=== PATIENT | female | born 1980 | race Caucasian/White ===

== ENCOUNTER 2023-10-23 15:41 | Emergency (ER) | payer BC, SELFPAY ==
[2023-10-23 16:04] VITALS: BP 131/77; PULSE 78; RESP 18; TEMP 36.4; O2SAT 99
--- NOTE | 2023-10-23 16:04 | ED.ANIMALBIT ---
HPI - Animal Bite General Chief Complaint: Animal Bite Stated Complaint: cat bite Time Seen by Provider: 10/23/23 16:06 Source: patient Mode of arrival: ambulatory Limitations: no limitations History of Present Illness HPI narrative: 43 y/o female presented for c/o cat bite to right inner knee sustained 2 days ago. The cat is her foster and is UTD on vaccinations, pt is UTD on tetanus. She cleansed the bite wounds with hydrogen peroxide about an hour after it occurred. Has noticed some drainage to the sites. She was prescribed Augmentin yesterday by PCP which she started over 24 hours after the bite; has had 2 doses. Pt reports pain is 8/10 with walking or touching the site. Continues to clean the wounds with hydrogen peroxide frequently. Endorses fever up to 101, sore throat, and malaise yesterday. She attributed most of her symptoms to dehydration after drinking alcohol at the [place] all weekend. Related Data Allergies Allergy/AdvReac Type Severity Reaction Status Date / Time Iodinated Contrast Media Allergy Severe Anaphylactic Verified 10/23/23 15:51 Shock bismuth subsalicylate AdvReac Mild Rash Verified 10/23/23 15:51 [From Pepto-Bismol] tioconazole AdvReac Mild Rash Verified 10/23/23 15:51 [From Monistat 1 (tioconazole)] Review of Systems Review of Systems: CONSTITUTIONAL: reports fever EYES: Denies visual changes, redness, or discharge. ENT: Denies rhinorrhea, congestion CARDIOVASCULAR: Denies chest pain, palpitations, or edema. RESPIRATORY: Denies cough or dyspnea. GASTROINTESTINAL: Denies abdominal pain, nausea, vomiting, or diarrhea. SKIN: reports cat bite right knee MUSCULOSKELETAL: Denies back pain, joint pain, or myalgia. NEUROLOGIC: Denies headache, numbness, tingling, or weakness. [facility] Past Medical History Medical History Allergic rhinitis GERD (gastroesophageal reflux disease) IBS (irritable bowel syndrome) Surgical History Surgical History History of cholecystectomy History of tonsillectomy Social History Social History Smoking status: Never smoker Alcohol intake: current Alcohol use details: rarely Substance use: never Substance use type: does not use Lack of Transportation: No Lack of Food: Never True Current Housing: I Have Housing Concerned About Future Housing: No Difficulty Paying Gas/Electric Bills: No Difficulty Paying for Meds: No Currently Unemployed: No Education: High School Diploma/GED Difficulty w/ Childcare or Family Care: No Living arrangements: with family Occupation/Education: occupation Gender identity (if verbalized by the patient): Female Sexual Orientation (if Verbalized by the Patient): Straight or Heterosexual Comments At time of signature, I have reviewed and agree with nursing past medical, surgical, social and family history unless otherwise noted. Please see nursing chart for further information. There is no relevant family history pertinent to the presenting complaint Exam Narrative: GENERAL: Well-appearing EYES: conjunctivae clear, and EOMI. ENT: Mucous membranes moist. Oropharynx without edema, erythema or lesions. CHEST: Clear to auscultation. HEART: Regular rate and rhythm. SKIN: Warm, dry. Right medial knee with 2 puncture sites and surrounding erythema of 1cm, minimally tender, no drainage, no streaking; another 2 puncture sites to medial knee with surrounding induration of 4cm, warm and tender, scant serous drainage; party supply specialist erythema surrounding these of 8cm with minimal tenderness, no streaking. Superficial scabbed abrasions scattered to right lower leg without surrounding induration. NEURO: Alert and oriented x3. Course Course Emergency Course: Patient is aware of diagnosis, understands and agrees to treatment plan.
== END 2023-10-23 16:46 | disposition short-term general hospital (02) ==
PROVIDERS: Emergency Provider Nurse Practitioner Family; PCP Physician Assistant Medical
DX: S81.031A Puncture wound without foreign body, right knee, initial encounter (principal); W55.01XA Bitten by cat, initial encounter; K21.9 Gastro-esophageal reflux disease without esophagitis
CPT/HCPCS: 99212; G0463

== ENCOUNTER 2023-10-23 17:23 | Observation (INO) | payer BC, SELFPAY ==
--- NOTE | ~2023-10-23 | XR_ITS ---
XR abdomen/kub 1V Ordering provider: Jelly Farias History: . chest pain, epigastric pain . Comparison: None. FINDINGS: BOWEL: Fecal material in the right side of the colon which may indicate constipation. Nonobstructive bowel gas pattern. ORGANOMEGALY: None. Status post cholecystectomy. SIGNIFICANT PATHOLOGIC CALCIFICATIONS: None. OTHER: No free air is seen under the diaphragm. Attempt of lumbarization of S1. IMPRESSION: NO ACUTE ABDOMINAL FINDINGS. Reviewed, dictated and finalized at location A.
--- NOTE | ~2023-10-23 | XR_ITS ---
EXAM: XR knee RT 3V DATE: 10/23/2023 20:13 HISTORY: pain s/p cat bite . COMPARISON: 07/31/2023. FINDINGS: Normal mineralization. No fracture or dislocation. No lytic or blastic lesion. Mild tricom partmental osteoarthritis. Potential loose bodies over the posterior joint space. No erosion or perio steal change. 2.7 x 5.7 cm ovoid soft tissue density likely overlying the vastus medialis muscle. No radiopaque foreign body or subcutaneous gas. IMPRESSION: No acute osseous finding in the right knee. 2.7 x 5.7 soft tissue density overlying the v astus medialis muscle, correlate for palpable mass and signs of infection. Reviewed, dictated and finalized at location K. IMPRESSION: No acute osseous finding in the right knee. 2.7 x 5.7 soft tissue d ensity overlying the vastus medialis muscle, correlate for palpable mass and si gns of infection.
--- NOTE | ~2023-10-23 | XR_ITS ---
Portable chest x-ray Comparison: None Clinical History: Chest pain Findings: Lungs are clear, without focal consolidation or pleural effusion. Cardiomediastinal silho uette is unremarkable. Bones and soft tissues are unremarkable. Impression: Normal chest. Reviewed, dictated and finalized at location . Impression: Normal chest.
[2023-10-23 17:56] VITALS: BP 128/78; PULSE 98; RESP 16; TEMP 36.5; O2SAT 100
--- NOTE | 2023-10-23 19:11 | PC.NURSE ---
Report given to DENAE Upton
[2023-10-23 20:58] LABS: Basophils Percent Auto 0.4 % (0.2-1.2); Eosinophils Absolute Auto 0.1 K/mm3 (0-0.3); Eosinophils Percent Auto 0.8 % (0-4.4); Hematocrit 41.8 % (37.0-47.0); Hemoglobin 14.7 g/dL (12.0-15.0); Immature Granulocyte Absolute 0.02 K/mm3 (0.00-0.031); Immature Granulocyte Percent A 0.3 % (0-0.5); Lymphocytes Absolute Auto 2.13 K/mm3 (0.9-3.2); Lymphocytes Percent Auto 28.6 % (18.3-44.2); Mean Corpuscular HGB Conc 35.2 g/dl (32-36); Mean Corpuscular Hemoglobin 29.5 pg (26-34); Mean Corpuscular Volume 83.8 fl (80-100); Mean Platelet Volume 9.6 fl (7.4-10.4); Monocytes Absolute Auto 0.7 K/mm3 (0.1-0.6); Monocytes Percent Auto 9.1 % (2.6-8.5); Neutrophils Absolute Auto 4.5 K/mm3 (1.3-6.7); Neutrophils Percent Auto 60.8 % (45.5-73.1); Platelet Count Result 249 k/mm3 (150-375); Red Blood Count 4.99 M/mm3 (4.2-5.4); Red Cell Distribution Width 12.8 % (11.5-14.5); White Blood Count 7.5 K/mm3 (4.5-10.0)
[2023-10-23 21:03] LABS: Appearance Urine Cloudy (Clear); Bacteria Urine 1+ /hpf; Bilirubin Urine Negative (Negative); Blood Urine Negative (Negative); Color Urine Yellow (Yellow); Glucose Urine UA Negative (Negative); Ketones Urine Negative (Negative); Leukocyte Esterase Ur Negative LEU/UL (Negative); Nitrate Urine Negative (Negative); Non Pathogenic Casts 0-2; Protein Urine Negative (Negative); Specific Grav Ur 1.025 (1.001-1.035); Squamous Epithelial Cell Urine Moderate /hpf (Few); WBC Urine 0-5 /hpf (0-3); pH Urine 5.5 (5.0-9.0)
[2023-10-23 21:04] LABS: Add Urine Microscopic? YES
[2023-10-23] MEDS: SODIUM CHLORIDE 0.9% IV 1,000 ML 999 ML IV CONT (21:04)
[2023-10-23 21:08] LABS: Lactic Acid Reflex 1.7 mmol/L (0.7-2.0)
--- NOTE | 2023-10-23 21:08 | ED.GENADULT ---
HPI - General Adult General Chief complaint: Animal Bite Stated complaint: cat bite-sent by Time Seen by Provider: 10/23/23 19:26 History of Present Illness HPI narrative: Patient is a 43-year-old female presents emergency department chief complaint of cat bite right lower extremity. The patient reports that 2 days ago she had a cat bite to the right lower extremity above the knee patient reports the area became red appears to be 2 bites of the patient states that she was started on Augmentin and reports that the area has become more red more swollen the patient states she has had some yellowish drainage from the wound patient denies fever chills reports that she went to urgent care and was recommended to come the emergency department for further treatment. Related Data Allergies Allergy/AdvReac Type Severity Reaction Status Date / Time Iodinated Contrast Media Allergy Severe Anaphylactic Verified 10/23/23 18:46 Shock bismuth subsalicylate AdvReac Mild Rash Verified 10/23/23 18:46 [From Pepto-Bismol] tioconazole AdvReac Mild Rash Verified 10/23/23 18:46 [From Monistat 1 (tioconazole)] Review of Systems Review of Systems: A 10 system review of systems was completed on the patient and is negative except for what is stated in the HPI. Nursing and ancillary documentation was reviewed. [facility] Past Medical History Medical History Allergic rhinitis GERD (gastroesophageal reflux disease) IBS (irritable bowel syndrome) Surgical History Surgical History History of cholecystectomy History of tonsillectomy Social History Social History Smoking status: Never smoker Alcohol intake: current Alcohol use details: rarely Substance use: never Substance use type: does not use Lack of Transportation: No Lack of Food: Never True Current Housing: I Have Housing Concerned About Future Housing: No Difficulty Paying Gas/Electric Bills: No Difficulty Paying for Meds: No Currently Unemployed: No Education: High School Diploma/GED Difficulty w/ Childcare or Family Care: No Living arrangements: with family Occupation/Education: occupation Gender identity (if verbalized by the patient): Female Sexual Orientation (if Verbalized by the Patient): Straight or Heterosexual Exam Narrative: GENERAL: Well-appearing, well-nourished, and in no acute distress. HEAD: Normocephalic, atraumatic. EYES: PERRLA and EOMI. ENT: Nares clear, no rhinorrhea or epistaxis. Mucous membranes moist. NECK: Supple. CHEST: Clear to auscultation. No respiratory distress. HEART: Regular rate and rhythm. No murmur heard. Normal peripheral pulses. ABDOMEN: Soft, nontender, nondistended, normal active bowel sounds. EXTREMITIES: Normal range of motion. No edema. SKIN: Warm, dry, no rash. There is an area of erythema to the right lower extremity above the knee there is no crepitance there is no fluctuance NEURO: No focal deficits. Alert and oriented x3. PSYCH: Normal mood and affect. Course Vital Signs Vital signs: Vital Signs Temperature 36.5 C 10/23/23 17:56 Pulse Rate 98 10/23/23 17:56 Respiratory Rate 16 10/23/23 17:56 Blood Pressure 128/78 10/23/23 17:56 Pulse Oximetry 100 10/23/23 17:56 Oxygen Delivery Room Air 10/23/23 17:56 Temperature 36.5 C 10/23/23 17:56 Pulse Rate 98 10/23/23 17:56 Respiratory Rate 16 10/23/23 17:56 Blood Pressure 128/78 10/23/23 17:56 Pulse Oximetry 100 10/23/23 17:56 Oxygen Delivery Room Air 10/23/23 17:56 Medical Decision Making [facility] Narrative Medical decision making narrative: Differential diagnosis includes foreign body, cellulitis, abscess Patient has been treated with Augmentin as an outpatient and has not had significant impr
[2023-10-23 21:09] LABS: Alanine Aminotransferase 23 U/L (6-35); Albumin Level 4.8 g/dL (3.5-5.1); Alkaline Phosphatase 74 U/L (38-126); Anion Gap 10 mmol/L (4-12); Aspartate Amino Transferase 27 U/L (14-36); Bilirubin,Total 0.5 mg/dL (0.2-1.3); Blood Urea Nitrogen 15 mg/dL (7-17); Calcium 9.3 mg/dL (8.4-10.2); Carbon Dioxide 24 mmol/L (22-30); Chloride 104 mmol/L (98-107); Estimated CRCL calculation 104 ml/min; Estimated Glomerular Filt Rate > 60; Glucose 82 mg/dL (65-110); Potassium 3.9 mmol/L (3.4-5.0); Sodium 138 mmol/L (137-145)
--- NOTE | 2023-10-23 21:30 | PM.IMHP ---
H&P: HPI History of Present Illness Date/Time: 10/23/23 21:30 Chief Complaint: cat bite Narrative: This is a 43 yo female with PMHx Significant for obesity, chronic pain, anxiety, depression, irritable bowel syndrome. Patient presented to the emergency room due to cat bite this is a CT that she has fostered. Was at Urgent Care was given antibiotics and sent home however the site has progressively gotten worse with tenderness swelling redness and warmth, chills. Patient has been placed in observation for IV antibiotic infusion. EXAM: XR knee RT 3V DATE: 10/23/2023 20:13 HISTORY: pain s/p cat bite . COMPARISON: 07/31/2023. FINDINGS: Normal mineralization. No fracture or dislocation. No lytic or blastic lesion. Mild tricompartmental osteoarthritis. Potential loose bodies over the posterior joint space. No erosion or periosteal change. 2.7 x 5.7 cm ovoid soft tissue density likely overlying the vastus medialis muscle. No radiopaque foreign body or subcutaneous gas. IMPRESSION: No acute osseous finding in the right knee. 2.7 x 5.7 soft tissue density overlying the vastus medialis muscle, correlate for palpable mass and signs of infection. [facility] Past Medical History Medical History Allergic rhinitis GERD (gastroesophageal reflux disease) IBS (irritable bowel syndrome) Surgical History Surgical History History of cholecystectomy History of tonsillectomy Social History Social History Smoking status: Never smoker Second hand tobacco smoke exposure: No Alcohol intake: current Drinks per week: 3 Alcohol use details: rarely Substance use: never Substance use type: does not use Do You Feel Safe in your Home?: Yes Lack of Transportation: No Lack of Food: Never True Current Housing: I Have Housing Concerned About Future Housing: No Difficulty Paying Gas/Electric Bills: No Difficulty Paying for Meds: No Currently Unemployed: No Education: Bachelor's Degree Difficulty w/ Childcare or Family Care: No Living arrangements: with family Occupation/Education: occupation Gender identity (if verbalized by the patient): Female Sexual Orientation (if Verbalized by the Patient): Straight or Heterosexual Spiritual care concerns: No Meds Home Medications and Allergies Home Medications Medication Instructions Recorded Confirmed Type alprazolam 0.25 mg tablet See Rx Instructions PO QHS PRN 07/21/22 10/23/23 Rx anxiety #60 tabs phentermine 37.5 mg capsule 37.5 mg PO DAILY #30 caps 10/10/23 10/23/23 Rx sertraline 100 mg tablet 200 mg PO DAILY #180 tabs 10/10/23 10/23/23 Rx topiramate 25 mg tablet (Topamax) 25 mg PO DAILY #30 tabs 10/10/23 10/23/23 Rx hydrocodone 5 mg-acetaminophen 325 5 - 325 tablet PO TID PRN Pain, 10/23/23 10/23/23 History mg tablet Moderate omeprazole 20 mg capsule,delayed 20 mg PO PRN PRN Acid Reflux 10/23/23 10/23/23 History release Allergies Allergy/AdvReac Type Severity Reaction Status Date / Time Iodinated Contrast Media Allergy Severe Anaphylactic Verified 10/23/23 18:46 Shock bismuth subsalicylate AdvReac Mild Rash Verified 10/23/23 18:46 [From Pepto-Bismol] tioconazole AdvReac Mild Rash Verified 10/23/23 18:46 [From Monistat 1 (tioconazole)] Vital Signs Vital Signs - 24 hr 10/23/23 17:56 Temperature 97.7 F Pulse Rate 98 Respiratory Rate 16 Blood Pressure 128/78 Pulse Oximetry 100 Oxygen Delivery Room Air Exam Narrative: sitting in stretcher Const: General: comfortable, no acute distress, well developed, alert, awake and average body habitus Nutritional Appearance: obese morbidly obese Orientation/consciousness: patient oriented x3 HENMT: Head: normal to inspection, normocephalic and atraumatic Ears: hearing grossly
[2023-10-23] MEDS: AMPICILLIN SULB 3 GM/NS 100 ML 3 GM/100 ML VIAL IVPB (21:34)
[2023-10-23 23:35] VITALS: BP 146/75; PULSE 99; RESP 18; TEMP 36.8; O2SAT 100
[2023-10-23 23:58] VITALS: BMI 47.6
--- NOTE | 2023-10-24 00:06 | ADMGEN ---
This patient, Kirstin London, was admitted to [facility] Surg Room 332-02. Patient/family oriented to hospital policies and general routines including ID bracelet, bed and alarms, visiting hours, pain management, procedures, bathroom and other care routines, personal items, smoking policy, room service/diet, and visiting hours. Information on how to activate the Rapid Response Team has been discussed. Patient/Family are encouraged to report perceived risks to care and to ask questions if they do not understand what they are told or what they should do.
[2023-10-24] MEDS: MORPHINE SULFATE (*CRX) 2 MG/ML INJ IV PUSH ×2 (00:42→12:25)
[2023-10-24] MEDS: AMPICILLIN SULB 3 GM/NS 100 ML 3 GM/100 ML VIAL IVPB ×3 (05:36→17:21)
[2023-10-24 06:00] VITALS: BP 112/60; PULSE 66; RESP 18; TEMP 36.7; O2SAT 98
[2023-10-24] MEDS: TOPIRAMATE 25 MG TABLET PO (07:35)
[2023-10-24] MEDS: SERTRALINE HCL 50 MG TABLET 200 MG PO (07:35)
[2023-10-24] MEDS: HYDROcodone/acetaminophen (*CRX) 5-325 MG TABLET 1 TAB PO ×2 (07:36→19:46)
[2023-10-24 08:00] VITALS: O2SAT 98
[2023-10-24] MEDS: PANTOPRAZOLE 40 MG TABLET PO (08:40)
[2023-10-24 10:16] VITALS: O2SAT 98
[2023-10-24 14:00] VITALS: BP 122/74; PULSE 75; RESP 16; TEMP 36.6; O2SAT 100
--- NOTE | 2023-10-24 17:18 | PM.IMPN ---
Progress Note: A&P Assessment and Plan (1) Cat bite: Code(s): W55.01XA - Bitten by cat, initial encounter Status: Acute (2) Cellulitis of leg, right: Code(s): L03.115 - Cellulitis of right lower limb Status: Acute Plan Discontinue morphine to avoid polypharmacy. Continue IV antibiotics, required. Heparin subQ 5000 units b.i.d.. Full code. Subjective Date/time seen: 10/24/23 17:18 Interval history: No acute overnight events. Patient denies fever chills. Review of Systems Review of Systems: All systems reviewed & are unremarkable except as noted in HPI and below (Subjective) Exam Const: General: comfortable and no acute distress Eyes: Pupils: Equal, round and reactive pupils present Neck: Neck: supple Resp: Effort & Inspection: normal respiratory effort Auscultation: clear to auscultation bilaterally Cardio: Rate: regular rate Rhythm: regular rhythm Extrem: Other: Right lower extremity edema improved. Erythema improved. No Pus drainage Objective Data Vital Signs Vital Signs: Vital Signs - 24 hr 10/23/23 17:56 10/23/23 23:35 10/24/23 06:00 Temperature 97.7 F 98.2 F 98.1 F Pulse Rate 98 99 66 Respiratory Rate 16 18 18 Blood Pressure 128/78 146/75 H 112/60 Pulse Oximetry 100 100 98 Oxygen Delivery Room Air 10/24/23 08:00 10/24/23 10:16 10/24/23 14:00 Temperature 97.8 F Pulse Rate 75 Respiratory Rate 16 Blood Pressure 122/74 Pulse Oximetry 98 98 100 Oxygen Delivery Room Air Room Air Intake/Output Intake/Output: Intake & Output 10/21/23 10/22/23 10/23/23 10/24/23 23:59 23:59 23:59 23:59 Intake Total 1100 1010 Output Total 400 Balance 1100 610 Meds/Results Medications: Active Medications Generic Name Dose Route Start Last Admin Trade Name Freq PRN Reason Stop Dose Admin Acetaminophen 650 mg 10/23/23 21:43 Acetaminophen 325 Mg Tablet PO Q4H PRN Mild Pain (1-3) or Fever Hydrocodone Bitart/Acetaminophen 1 tab 10/24/23 01:30 10/24/23 07:36 Hydrocodone/Acetaminophen (*Crx) 5-325 Mg Tablet PO 1 tab TID PRN Administration Pain, Moderate 4-6 Alprazolam 1 - 2 mg 10/24/23 01:30 Alprazolam (*Crx) 0.25 Mg Tablet PO QHS PRN anxiety Ampicillin Sodium/Sulbactam Sodium 3 gm in 100 mls @ 200 mls/hr 10/24/23 06:00 10/24/23 12:22 Unasyn 3 Gm/Ns 100 Ml IVPB Infused Q6H CAROLE Infusion Miscellaneous Information 0 each 10/24/23 00:01 Phentermine Nonformulary Can Pt Bring From Home Or Hold While Here? XX 11/23/23 00:00 CLARIFY CAROLE Morphine Sulfate 2 mg 10/23/23 21:43 10/24/23 12:25 Morphine Sulfate (*Crx) 2 Mg/Ml Inj IV PUSH 2 mg Q2H PRN Administration Pain Rated 7-10 Non-Formulary Medication 37.5 mg 10/24/23 09:00 Phentermine PO 11/23/23 08:59 DAILY CAROLE Pantoprazole Sodium 40 mg 10/24/23 01:30 10/24/23 08:40 Pantoprazole 40 Mg Tablet PO 40 mg PRN PRN Administration Acid Reflux Sertraline HCl 200 mg 10/24/23 09:00 10/24/23 07:35 Sertraline Hcl 50 Mg Tablet PO 200 mg DAILY CAROLE Administration Topiramate 25 mg 10/24/23 09:00 10/24/23 07:35 Topiramate 25 Mg Tablet PO 25 mg DAILY CAROLE Administration Radiology Results: ITS Impressions Knee X-Ray 10/23/23 20:26 IMPRESSION: No acute osseous finding in the right knee. 2.7 x 5.7 soft tissue density overlying the vastus medialis muscle, correlate for palpable mass and signs of infection. Labs Labs: Laboratory Results - last 24 hr 10/23/23 10/23/23 10/23/23 20:28 20:47 20:48 WBC 7.5 RBC 4.99 Hgb 14.7 Hct 41.8 MCV 83.8 MCH 29.5 MCHC 35.2 RDW 12.8 Plt Count 249 MPV 9.6 Immature Gran % (Auto) 0.3 Neut % (Auto) 60.8 Lymph % (Auto) 28.6 [place] % (Auto) 9.1 H Eos % (Auto) 0.8 Baso % (Auto) 0.4 Lymph # (Auto) 2.13 [place] # (Auto) 0.7 H Eos # (Auto) 0.1 Baso # (Auto) 0.0 Abs I
[2023-10-24] MEDS: HEPARIN SODIUM 5,000 UNITS/ML VIAL 5000 UNITS SUB-Q (19:50)
[2023-10-24 22:00] VITALS: BP 110/78; PULSE 84; RESP 16; TEMP 36.6; O2SAT 98
[2023-10-25] MEDS: ALPRAZolam (*CRX) 0.25 MG TABLET PO (00:04)
[2023-10-25] MEDS: ACETAMINOPHEN 325 MG TABLET 650 MG PO ×3 (00:05→15:15)
[2023-10-25] MEDS: HYDROcodone/acetaminophen (*CRX) 5-325 MG TABLET 1 TAB PO ×2 (05:37→11:08)
[2023-10-25] MEDS: AMPICILLIN SULB 3 GM/NS 100 ML 3 GM/100 ML VIAL IVPB ×3 (05:38→11:10)
[2023-10-25 05:50] VITALS: BP 110/74; PULSE 69; RESP 16; TEMP 36.6; O2SAT 100
[2023-10-25] MEDS: HEPARIN SODIUM 5,000 UNITS/ML VIAL 5000 UNITS SUB-Q (09:32)
[2023-10-25] MEDS: TOPIRAMATE 25 MG TABLET PO (09:33)
[2023-10-25] MEDS: SERTRALINE HCL 50 MG TABLET 200 MG PO (09:33)
[2023-10-25 10:41] VITALS: BP 126/96; PULSE 79; RESP 12; O2SAT 100
[2023-10-25] MEDS: PANTOPRAZOLE 40 MG TABLET PO (11:07)
--- NOTE | 2023-10-25 11:09 | ECG_ITS ---
Test Date: 2023-10-25 11:16:22 Measurements Intervals [place] Rate: 72 P: 31 AL: 151 QRS: 21 QRSD: 93 T: 4 QT: 383 QTc: 419 Interpretive Statements SINUS RHYTHM LOW QRS VOLTAGE IN PRECORDIAL LEADS INCOMPLETE RIGHT BUNDLE BRANCH BLOCK DELAYED PRECORDIAL R/S TRANSITION BORDERLINE ST-T WAVE ABNORMALITY- ANTEROLAT/INF LEADS BORDERLINE ECG No previous ECG available for comparison Electronically Signed On 10-25-2023 16:37:24 CDT by Cassius Simon D.O.
[2023-10-25] MEDS: MAG HYDROX/AL HYDROX/SIMETH 30 ML UDC PO (12:19)
--- NOTE | 2023-10-25 13:05 | PC.NURSE ---
Wet End Supervisor called to patients room with complaints of burning in epigastric region and pain across chest. Patient states it hurts when I swallow and I feel like if I threw up I'd feel better. Wet End Supervisor contacted provider and a stat EKG was ordered and protonix and a [place] 5 was administered . Provider saw patient at bedside and ordered a one time dose of mylanta, troponins ( which patient refused) and a chest x-ray. At this time patient states she is feeling better and pain is subsiding
[2023-10-25 14:00] VITALS: BP 107/78; PULSE 72; RESP 18; TEMP 36.6; O2SAT 98
--- NOTE | 2023-10-25 15:39 | PC.NURSE ---
On re-assessment patient states all symptoms of epigastric pain has resolved. Chest x-ray was negative for PE and patient refused blood draw for troponins.
--- NOTE | 2023-11-06 14:55 | P.DS_ITS ---
DS: Admitting Diagnosis Discharge Date 10/25/23 Admitting Diagnosis Cat bite DS: Discharge Diagnosis Discharge Diagnosis (1) Cat bite: Code(s): W55.01XA - Bitten by cat, initial encounter Status: Acute (2) Cellulitis of leg, right: Code(s): L03.115 - Cellulitis of right lower limb Status: Acute DS: Summary Hospital Course Hospital Course: 43-year-old female presents with erythema pain and edema right lower extremity inner thigh after being bit by a cat she was fostering. She received IV Unasyn. Her symptoms improved. He was discharged on p.o. antibiotics. Advised follow- up with PCP. Adverse effects, risk and benefits of medications discussed. She was educated about the warning signs of worsening infection and to return if so. Patient's questions and concerns were answered to satisfaction. Stable for discharge home on October 25, 2023 Time Spent with Patient Time attestation: Total time spent providing and/or coordinating discharge services: Exam Const: General: comfortable and no acute distress Resp: Effort & Inspection: normal respiratory effort Auscultation: clear to auscultation bilaterally Cardio: Rate: regular rate Rhythm: regular rhythm GI: GI Palp: Yes Soft to palpation and No Tenderness to palpation present (GI) Extrem: General: no edema Discharge Plan Discharge Attending physician on discharge: Jelly Farias Consulting providers: Mendel Arellano; Cassius Simon; Bruno Pressley; Benoit Aguirre Discharging Clinician: Jelly Farias Patient Disposition: Home, Self-Care Activity: august shower Diet: as tolerated Patient Instructions: Antibiotic Form Stand Alone Forms: General Discharge Information Follow-up/Referrals: Lorelei Davis PA-C [Primary Care Provider] - Call for Appointment Discharge Medications: Continued alprazolam 0.25 mg tablet See Rx Instructions PO QHS PRN (Reason: anxiety) Qty: 60 1RF Rx Instructions: 1-2 tabs orally every day at bedtime PRN; hydrocodone-acetaminophen 5-325 mg tablet 5 - 325 tablet PO TID PRN (Reason: Pain, Moderate) phentermine 37.5 mg capsule 37.5 mg PO DAILY Qty: 30 0RF Rx Instructions: must administer 30 minutes before or 1-2 hours after breakfast sertraline 100 mg tablet 200 mg PO DAILY Qty: 180 1RF topiramate [Topamax] 25 mg tablet 25 mg PO DAILY Qty: 30 1RF Held omeprazole 20 mg capsule,delayed release(DR/EC) 20 mg PO PRN PRN (Reason: Acid Reflux) Hold Instructions: restart after antibiotics are done No Action cefuroxime axetil 500 mg tablet 500 mg PO Q12H 7 Days Qty: 14 0RF fluconazole 150 mg tablet 150 mg PO DAILY Qty: 1 0RF metronidazole 500 mg tablet 500 mg PO Q8H 7 Days Qty: 21 0RF Date of admission: 10/23/23 21:43 Primary Care Provider: Lorelei Davis Admitting Provider: Day Caceres V. Attending physician on admission: Jelly Farias Condition: Stable Hospitalist MIPS Heart Failure (Exclusion) Patient has history of Heart Transplant or Left Ventricular Assistive Device?: No IF YES, STOP HERE Heart Failure (Qualifier) Patient has current or prior documentation of LVEF less than or equal to 40%, or mod/servere depressed LVSF?: No IF NO, STOP HERE
== END 2023-10-25 16:12 | disposition home or self-care (01) ==
LOC: ANHED 21:46 → ANH3MEDSUR 10-25 11:19
PROVIDERS: Admitting Provider Internal Medicine; Emergency Provider Emergency Medicine; PCP Physician Assistant Medical; Visit Provider General Practice
DX: L03.115 Cellulitis of right lower limb (principal); S81.851A Open bite, right lower leg, initial encounter; W55.01XA Bitten by cat, initial encounter; F41.9 Anxiety disorder, unspecified; F32.A Depression, unspecified; E66.01 Morbid (severe) obesity due to excess calories; Z68.42 Body mass index [BMI] 45.0-49.9, adult
CPT/HCPCS: 36415; 71045; 73562; 74018; 80053; 81001; 83605; 85025; 87040; 93005; 96365; 96366; 96372; 96375; 96376; 99285; A9270; G0378; J0295; J1644; J2270; J7030

== ENCOUNTER 2024-03-09 08:08 | Emergency (ER) | payer BC, SELFPAY ==
[2024-03-09 08:41] VITALS: BP 114/75; PULSE 86; RESP 18; TEMP 36.7; O2SAT 97
--- NOTE | 2024-03-09 08:58 | ED_ITS ---
HPI - URI/Sore Throat General Chief Complaint: Upper Respiratory Infection Stated Complaint: throat pain History of Present Illness HPI Narrative: 44-year-old female presented for complaint of left-sided sore throat and left ear pain. Onset yesterday. Patient completed a Z-Narayan yesterday as prescribed by PCP from a telehealth visit for cough/fever. Denies sob, wheezing, n/v/f. Reports diarrhea yesterday.Taking ibuprofen and antihistamines. Related Data Home Medications Medication Instructions Recorded Confirmed omeprazole 20 mg capsule,delayed 20 mg PO PRN PRN Acid Reflux 10/23/23 03/09/24 release cyanocobalamin (vitamin B-12) 1,000 mcg PO DAILY 01/10/24 03/09/24 1,000 mcg tablet levonorgestrel 21 mcg/24 hr (up to 1 device intrauterine ONCE 01/29/24 03/09/24 8 years) 52 mg intrauterine device (Mirena) bupropion HCl 150 mg 24 hr tablet, 150 mg PO QAM 03/09/24 03/09/24 extended release (Wellbutrin XL) sertraline 100 mg tablet 200 mg PO DAILY 03/09/24 03/09/24 Allergies Allergy/AdvReac Type Severity Reaction Status Date / Time Iodinated Contrast Media Allergy Severe Anaphylaxis Verified 03/09/24 08:30 bismuth subsalicylate AdvReac Mild Rash Verified 03/09/24 08:30 [From Pepto-Bismol] tioconazole AdvReac Mild Rash Verified 03/09/24 08:30 [From Monistat 1 (tioconazole)] Review of Systems Review of Systems: CONSTITUTIONAL: Denies body aches, fever, chills, or sweats. EYES: Denies visual changes, redness, or discharge. ENT: reports rhinorrhea, sore throat, otalgia. CARDIOVASCULAR: Denies chest pain, palpitations, or edema. RESPIRATORY: Denies dyspnea. GASTROINTESTINAL: Denies abdominal pain, nausea, vomiting, reports diarrhea. SKIN: Denies rash MUSCULOSKELETAL: Denies back pain, joint pain, or myalgia. NEUROLOGIC: Denies headache PMFSH Past Medical History Medical History Allergic rhinitis GERD (gastroesophageal reflux disease) IBS (irritable bowel syndrome) PCOS (polycystic ovarian syndrome) Surgical History Surgical History History of cholecystectomy History of tonsillectomy Family History Family History Father Hypertension Depression Heart disease Mother Asthma Depression Grandparent Heart disease Cerebrovascular accident Social History Social History Social History: 01/21/24 very confident with medical forms 01/29/24 patient declined SDOH Smoking status: Never smoker Second hand tobacco smoke exposure: No Alcohol intake: current Drinks per week: 3 Alcohol use details: rarely Substance use: never Substance use type: does not use Do You Feel Safe in your Home?: Yes Lack of Transportation: No Lack of Food: Never True Current Housing: I Have Housing Concerned About Future Housing: No Difficulty Paying Gas/Electric Bills: No Difficulty Paying for Meds: No Currently Unemployed: No Education: Master's Degree or Higher Difficulty w/ Childcare or Family Care: No Living arrangements: with family Occupation/Education: occupation Gender identity (if verbalized by the patient): Female Sexual Orientation (if Verbalized by the Patient): Straight or Heterosexual Spiritual care concerns: No Exam Narrative: GENERAL: mildly Ill-appearing, no acute distress. EYES: conjunctivae clear ENT: Mucous membranes moist. TMs pearly rene with normal light reflex bilaterally, Left with effusion; no tragal tenderness. Oropharynx erythematous without lesions. Tonsils absent. No drooling, no hoarseness, no trismus, uvula m idline. No tripod positioning, hot potato voice, or soft palate swelling. NECK: Supple. No lymphadenopathy CHEST: Clear to auscultation, breath sounds equal. No respiratory distress, speaks in full sentences. HEART: Regular rate and rhythm. No murmur heard. SKIN: Warm, dry, no rash. NEURO: Alert and oriented x3. Course Course Emergency Course: Patient is aware of diagnosis, understands and agrees to treatment plan. Anticipatory guidance given. Patient agrees to follow-up as directed and is aware of reasons to seek care at the emergency department. Portions of this record may have been created with voice recognition software Level of Care: Express Care Visit Vital Signs Vital signs: Vital Signs Temperature 98.0 F 03/09/24 08:41 Pulse Rate 86 03/09/24 08:41 Respiratory Rate 18 03/09/24 08:41 Blood Pressure 114/75 03/09/24 08:41 Pulse Oximetry 97 03/09/24 08:41 Oxygen Delivery Room Air 03/09/24 08:41 Temperature 98.0 F 03/09/24 08:41 Pulse Rate 86 03/09/24 08:41 Respiratory Rate 18 03/09/24 08:41 Blood Pressure 114/75 03/09/24 08:41 Pulse Oximetry 97 03/09/24 08:41 Oxygen Delivery Room Air 03/09/24 08:41 MDM - URI/Sore Throat MDM Narrative Medical decision making narrative: neg strep result reviewed with pt. Advise supportive treatments. If no improvement she will start abx. Patient is appropriate for outpatient treatment and follow-up. Differential Diagnosis Differential diagnosis: Likely upper respiratory infection, viral infection and pharyngitis Discharge Plan Discharge Clinical Impression: Upper respiratory infection Patient Disposition: Home, Self-Care Condition: Stable Instructions: Antibiotic Form, Upper Respiratory Infection (ED) Additional Instructions: Rapid strep swab was negative today You will be notified in a few days if the culture comes back positive for strep, and appropriate antibiotics will be called in at that time. if symptoms are due to a viral illness, it is not treated with antibiotics. Viral symptoms can be present for up to 10-14 days. Recommendations: Flonase spray and Zyrtec for sinus congestion Cough syrup may cause drowsiness; avoid driving or take it at night time. Tylenol every 8 hours as needed for pain/fever Soft foods, cool liquids, warm tea. Gargle with warm saltwater twice a day. Chloraseptic spray and throat lozenges. Rest and stay hydrated. if no improvement with the above measures after 5 days, you can start the antibiotic. Recommend taking a probiotic. --Follow up with your PCP --Go to the ER immediately if you cannot swallow your saliva, trouble breathing/wheezing, throat swelling, pain is persistent and severe Prescriptions: New amoxicillin-pot clavulanate 875-125 mg tablet 1 tablet PO Q12H 7 Days Qty: 14 0RF No Action sertraline 100 mg tablet 200 mg PO DAILY bupropion HCl [Wellbutrin XL] 150 mg Tablet Extended Release 24 Hr 150 mg PO QAM Mirena 21 mcg/24hr (up to 8 yrs) 52 mg intrauterine device 1 device intrauterine ONCE Rx Instructions: as a single dose metformin 500 mg tablet extended release 24 hr 500 mg PO DAILY Qty: 90 0RF omeprazole 20 mg capsule,delayed release(DR/EC) 20 mg PO PRN PRN (Reason: Acid Reflux) Hold Instructions: restart after antibiotics are done cyanocobalamin (vitamin B-12) 1,000 mcg tablet 1,000 mcg PO DAILY topiramate [Topamax] 25 mg tablet 25 mg PO DAILY Qty: 30 1RF Follow-up/Referrals: Lorelei Davis PA-C [Primary Care Provider] -
[2024-03-09 09:17] LABS: EDSTREPNEGPOS1 Negative (Negative)
== END 2024-03-09 09:12 | disposition home or self-care (01) ==
PROVIDERS: Emergency Provider Nurse Practitioner Family; PCP Physician Assistant Medical
DX: J06.9 Acute upper respiratory infection, unspecified (principal); K21.9 Gastro-esophageal reflux disease without esophagitis; E28.2 Polycystic ovarian syndrome
CPT/HCPCS: 87081; 87880; 99213; G0463

== ENCOUNTER 2024-03-30 11:59 | Emergency (ER) | payer BC, SELFPAY ==
[2024-03-30 12:29] VITALS: BP 112/65; PULSE 78; RESP 18; TEMP 36.2; O2SAT 98
--- NOTE | 2024-03-30 13:24 | ED_ITS ---
HPI - Ear Problem General Chief complaint: Ear Stated complaint: ear infection Time Seen by Provider: 03/30/24 13:25 Source: patient, RN notes reviewed and old records reviewed Mode of arrival: ambulatory Limitations: no limitations History of Present Illness HPI Narrative: 44 year old female presents to [facility] care with complaints of right ear pain for one week duration states pain is bad has been using heating pad and has taken [place] for her pain, Patient reports she was treated for left ear infection a few weeks ago with Azithromycin. Patient reports that she has had a dry cough for the past 2 days. Patient denies any drainage or any ringing in her right ear. MD Complaint: ear pain Location: right ear Duration: constant Severity: moderate Discharge from ear: Reports no Treatment prior to arrival: oral analgesic and other (heat pad) Related Data Home Medications ?Medication ?Instructions ?Recorded ?Confirmed ?Last Taken ?Type omeprazole 20 mg capsule,delayed 20 mg PO PRN PRN Acid Reflux 10/23/23 03/09/24 Unknown History release levonorgestrel (Mirena) 1 device intrauterine ONCE 01/29/24 03/09/24 Unknown History bupropion HCl 150 mg 24 hr tablet, 150 mg PO QAM 03/09/24 03/09/24 Unknown History extended release (Wellbutrin XL) sertraline 100 mg tablet 200 mg PO DAILY 03/09/24 03/09/24 Unknown History Allergies Allergy/AdvReac Type Severity Reaction Status Date / Time Iodinated Contrast Media Allergy Severe Anaphylaxis Verified 03/30/24 13:06 bismuth subsalicylate (From Allergy Mild Rash Verified 03/30/24 13:06 Pepto-Bismol) tioconazole (From Monistat 1 Allergy Mild Rash Verified 03/30/24 13:06 (tioconazole)) Review of Systems Review of Systems: CONSTITUTIONAL: Denies malaise, chills, sweats, or fever. EYES: Denies visual changes, redness, or discharge. ENT: Reports rhinorrhea, congestion,no sinus pain, right otalgia and no sore throat. CARDIOVASCULAR: Denies chest pain, palpitations, or edema. RESPIRATORY: Reports dry cough.? Denies dyspnea. GASTROINTESTINAL: Denies abdominal pain, nausea, vomiting, diarrhea SKIN: Denies rash or itching. MUSCULOSKELETAL: Denies myalgia. NEUROLOGIC: Denies headache. All systems reviewed & are unremarkable except as noted in HPI and below PMFSH Past Medical History Medical History (Updated 04/01/24 @ 08:11 by Amanda Waldron NP) Arthritis Depression Anxiety PCOS (polycystic ovarian syndrome) Allergic rhinitis GERD (gastroesophageal reflux disease) IBS (irritable bowel syndrome) Surgical History Surgical History (Updated 04/01/24 @ 08:11 by Amanda Waldron NP) Previous section History of tonsillectomy History of cholecystectomy Family History Family History Father Hypertension Depression Heart disease Mother Asthma Depression Grandparent Heart disease Cerebrovascular accident Social History Social History Social History: 01/21/24 very confident with medical forms 01/29/24 patient declined SDOH Smoking status: Never smoker Second hand tobacco smoke exposure: No Alcohol intake: current Drinks per week: 3 Alcohol use details: rarely Substance use: never Substance use type: does not use Do You Feel Safe in your Home?: Yes Lack of Transportation: No Lack of Food: Never True Current Housing: I Have Housing Concerned About Future Housing: No Difficulty Paying Gas/Electric Bills: No Difficulty Paying for Meds: No Currently Unemployed: No Education: Master's Degree or Higher Difficulty w/ Childcare or Family Care: No Living arrangements: with family Occupation/Education: occupation Gender identity (if verbalized by the patient): Female Sexual Orientation (if Verbalized by the Patient): Straight or Heterosexual Spiritual care concerns: No Comments At time of signature, agree with nursing past medical, surgical, social and family history. There is no relevant family history pertinent to the presenting complaint Exam Narrative: GENERAL: Well-appearing, well-nourished, and in no acute distress. HEAD: Normocephalic EYES: PERRLA, conjunctivae clear ENT: Nares clear, turbinates edematous and erythematous, clear discharge. Mucous membranes moist.Right TM red and bulging, Left TM pearly rene with dull light reflex bilaterally; no tragal tenderness. Oropharynx erythematous without lesions. Tonsils not present and throat without exudate, no drooling, no hoarseness, no trismus, uvula midline, post nasal drainage. NECK: Supple. No lymphadenopathy CHEST: Clear to auscultation, breath sounds equal. No wheezing, rhonchi, rales, or stridor. No respiratory distress, speaks in full sentences.dry cough,SAO2 98% on room air HEART: Regular rate and rhythm. No murmur heard. SKIN: Warm, dry, no rash. NEURO: Alert and oriented x3. PSYCH: Normal mood and affect Course Course Emergency Course: Patient is aware of diagnosis, understands and agrees to treatment plan.? Anticipatory guidance given.? Patient agrees to follow-up as directed and is aware of reasons to seek care at the emergency department. Portions of this record may have been created with voice recognition software Level of Care: Express Care Visit Vital Signs Vital signs: Vital Signs Temperature 36.2 C L 03/30/24 12:29 Pulse Rate 78 03/30/24 12:29 Respiratory Rate 18 03/30/24 12:29 Blood Pressure 112/65 03/30/24 12:29 Pulse Oximetry 98 03/30/24 12:29 Oxygen Delivery Room Air 03/30/24 12:29 Temperature 36.2 C L 03/30/24 12:29 Pulse Rate 78 03/30/24 12:29 Respiratory Rate 18 03/30/24 12:29 Blood Pressure 112/65 03/30/24 12:29 Pulse Oximetry 98 03/30/24 12:29 Oxygen Delivery Room Air 03/30/24 12:29 Reviewed Medical Decision Making Differential Diagnosis Differential Diagnosis: URI, otitis media, rhinitis, cough, viral infection Medical Records Medical records reviewed: Yes I reviewed the external patient's medical records. Vital Signs Vital Signs: Vital Signs Temperature 36.2 C L 03/30/24 12:29 Pulse Rate 78 03/30/24 12:29 Respiratory Rate 18 03/30/24 12:29 Blood Pressure 112/65 03/30/24 12:29 Pulse Oximetry 98 03/30/24 12:29 Oxygen Delivery Room Air 03/30/24 12:29 Temperature 36.2 C L 03/30/24 12:29 Pulse Rate 78 03/30/24 12:29 Respiratory Rate 18 03/30/24 12:29 Blood Pressure 112/65 03/30/24 12:29 Pulse Oximetry 98 03/30/24 12:29 Oxygen Delivery Room Air 03/30/24 12:29 reviewed Critical Care Time Critical Care Time Critical Care Time: No Discharge Plan Discharge Clinical Impression: Otitis media, right Qualifiers: Otitis media type: serous Chronicity: acute Recurrence: not specified as recurrent Qualified Code(s): H65.01 - Acute serous otitis media, right ear URI (upper respiratory infection) Qualifiers: URI type: unspecified URI Qualified Code(s): J06.9 - Acute upper respiratory infection, unspecified Patient Disposition: Home, Self-Care Condition: Stable Instructions: Antibiotic Form, Ear Infection (GEN), Upper Respiratory Infection (ED) Additional Instructions: Increase fluids especially juices and water [id number] cough and cold medicine of your choice for your symptoms Zyrtec Claritin or Yumi daily may include plain Sudafed as decongestant in a.m. and early p.m. heat to the face 20-30 minutes 4-6 times a day for pain Salt water gargles, throat lozenges or throat sprays as desired Antibiotic as directed--finished the medication If your symptoms persist, change or worsen significantly before you can contact your personal physician then please, without delay, go to the emergency department for further evaluation. Follow-up with PCP in 7-10 days or sooner if needed monitor for any fevers Patient Language: [place] Prescriptions: New amoxicillin-pot clavulanate 875-125 mg tablet 1 tablet PO Q12H Qty: 20 0RF Rx Instructions: take all of prescription take with food recommend probiotic or eating activity yogurt while on this medication No Action sertraline 100 mg tablet 200 mg PO DAILY bupropion HCl [Wellbutrin XL] 150 mg Tablet Extended Release 24 Hr 150 mg PO QAM Mirena 21 mcg/24hr (up to 8 yrs) 52 mg intrauterine device 1 device intrauterine ONCE Rx Instructions: as a single dose metformin 500 mg tablet extended release 24 hr 500 mg PO DAILY Qty: 90 0RF omeprazole 20 mg capsule,delayed release(DR/EC) 20 mg PO PRN PRN (Reason: Acid Reflux) azithromycin [Zithromax Z-Narayan] 250 mg tablet See Rx Instructions PO .COMPLEX Qty: 6 0RF Rx Instructions: For 250 mg dose pack: take 500 mg today (day 1), then 250 mg for 4 days (days 2-5) PO Follow-up/Referrals: Ryan,Lorelei A., PA-C [Primary Care Provider] - Time of Disposition: 13:48 Quality [place] Coma Scale Eyes: Open Verbal: Oriented and Alert Motor: Follows Commands [place] Coma Total Score: 15
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
--- OUTSIDE RECORDS SUMMARY | 2024-04-06 17:20 | XMS_ITS | Encounter Summary ---
Author Organization [facility] Address [address] [place] [address] Care Team Providers Care Battery Parts Assembler Name Role Phone Lorelei Davis Primary Care Provider Encounter Details Date Type Department Care Team (Latest Contact Info) Description 11/13/2019 3:15 PM CDT - 11/13/2019 11:59 PM CDT Hospital Encounter [facility] [address] [place] [address] Aris Hinkle MD [address] [place] [address] Discharge Disposition: Home or Self Care Social [...] PM CDT documented as of this encounter Medications at Time of Discharge [...] once daily documented as of this encounter Plan of Treatment Not on file documented as of this encounter Procedures Procedure Name Priority Date/Time Associated Diagnosis Comments SONOGRAM - COMPLETE Routine 11/13/2019 2:26 PM CDT Supervision of normal first , antepartum (HCC) Antepartum multigravida of advanced maternal age ([facility]) Encounter for ultrasound ([facility]) Class 3 severe obesity due to excess calories in adult, unspecified BMI, unspecified whether serious comorbidity present ([facility]) Polycystic ovary syndrome Depression during , antepartum ([facility]) documented in this encounter Results * SONOGRAM - COMPLETE (11/13/2019 2:26 PM CDT) Anatomical Region Laterality Modality Other 11/13/2019 2:26 PM CDT Narrative 11/13/2019 5:26 PM CDT ?[facility] ?PHONE: ??FAX: ? Pat. Name: ?ISMAEL PEÑA. No: ?[id number] Study Date: ?? 11/13/2019 ??2:26pm , Age: ? 1980, 39 Pregnancies: ?? 1 Height: ? 64 in Weight: ? 260 lb LMP: ?05/20/2019 GA by LMP: ?25w2d GA by Base: ?? 25w2d ?? HANNAH: 02/24/2020 GA by US: ? 26w1d ?? HANNAH: 02/18/2020 GA Selected: ??25w2d (LMP) HANNAH: ?02/24/2020 Referring MD: Tammy Spann MD Automatic Dry Starch Operator: ??Queta Griffiths RDMS CPT4: ? 08465 BMI: ?44.62 Hist/Ind: ? AMA ?Obesity Class 3 ?PCOS ?History of DVT after ankle surgery ?Depression MEASUREMENTS & AGE ? GROWTH EVALUATION Measurement ??GA ? Range ? Srce %for GA Ratios ----- ---- ------- BPD ??6.4 cm 26w0d (69w8z-69s7a) Hadl BPD 66% FL/BPD 0.72 (0.71 - 0.87) HC ??24.3 cm 26w2d (28z4b-56h7k) Hadl HC ??63% FL/AC ??0.21 (0.20 - 0.24) AC ??22.1 cm 26w4d (99k6a-83f4l) Hadl AC ??78% HC/AC ??1.10 (1.01 - 1.20) FL ?? 4.6 cm 25w3d (13u7i-20e1n) Hadl FL ??39% CI ? 0.74 (0.70 - 0.86) HL ?? 4.1 cm 24w6d (32f0p-20h7q) Seferino HL ??42% Cere 3.0 cm 26w2d (51u8j-29k1a) Hill Cere73% GA for sonogram 26w1d (26e8b-21l3x) ?? Weight Estimate: based on (BPD,HC,AC,FL) Avg ?Weight: 889 gm (759-1019gm) Hadlo ? : 1lbs, 15oz ? Normal: 823 gm (618- 1029gm) Hadlo ? Wt% ? 74% for 25w2d Heart Rate: 146 bpm EVAL, PLACENTA Presentation: cephalic Umbilical Cord: 3 Vessels Placenta: posterior Heart Rate: 146 bpm Amniotic Fluid Volume: normal Anatomy!Normal!Abnormal!Suboptimal!Prev. Seen!Comments Cranium ?! ?? x ??! ?! ?! ?! Mdl (CSP/Thal! ?? x ??! ?! ?! ?! Ventricles ?? ! ?? x ??! ?! ?! ?! Choroid Plexu! ?? x ??! ?! ?! ?! Cerebellum ?? ! ?? x ??! ?! ?! ?! Cisterna M. ??! ?? x ??! ?! ?! ?! Profile ?! ?! ?! ?! ? x ?! Nasal Bone ?? ! ?? x ??! ?! ?! ?! Lip ?! ?! ?! ?! ? x ?! Spine ?! ?! ?! ?! ? x ?! Lungs ?! ?! ?! ?! ? x ?! 4 Chamber Hea! ?! ?! ?! ? x ?! LVOT ? ! ?! ?! ?! ? x ?! RVOT ? ! ?! ?! ?! ? x ?! 3 Vessel View! ?! ?! ?! ? x ?! Cross-over ?? ! ?! ?! ?! ? x ?! Ductal Arch ??! ?! ?! ?! ? x ?! Aortic Arch ??! ?! ?! ?! ? x ?! Caval View ?? ! ?! ?! ?! ? x ?! Situs ?! ?! ?! ?! ? x ?! Diaphragm ?! ?? x ??! ?! ?! ?! Stomach ?! ?! ?! ?! ? x ?! Bowel ?! ?! ?! ?! ? x ?! Kidneys ?! ?! ?! ?! ? x ?! Bladder ?! ?! ?! ?! ? x ?! 3 Vessel Cord! ?! ?! ?! ? x ?! Cord In! ?? x ??! ?! ?! ?! Upper Extremi! ?! ?! ?! ? x ?! Hands ?! ?! ?! ?! ? x ?! Lower Extreme! ?? x ??! ?! ?! ?! Feet ? ! ?? x ??! ?! ?! ?! Placental Cor! ?! ?! ?! ? x ?! CLINICAL SUMMARY Study Number: 2 ?? A single fetus is seen in cephalic presentation. ??The measurements today are consistent with appropriate interval growth. ??The HANNAH is based on her LMP and a prior ultrasound. ??The amniotic fluid volume is within normal limits. ?? anatomy was technically adequate. ?? No major malformations were seen within the limitations of ultrasound. ?? IMPRESSION: Single, live, intrauterine at 25w2d ?? size is within normal limits ?? Amniotic fluid volume: within normal limits ?? Examination limited by maternal acoustics properties and positioning RECOMMEND: Ultrasound in 4 weeks for to complete the anatomy survey and assess growth. Please be advised that these recommendations are being made in the best interest of our patients during the COVID 19 Pandemic. Thank you for allowing us the opportunity to care for your patient. ?? Aris Hinkle MD <Electronic Signature> ??11/13/2019 05:01pm Revised Pasquale Russ MD [facility] ORDERABLES documented in this encounter Visit Diagnoses Diagnosis Supervision of normal first , antepartum (HCC) Antepartum multigravida of advanced maternal age (HCC) Encounter for ultrasound (HCC) Encounter for routine screening for malformation using ultrasonics Polycystic ovary syndrome Polycystic ovaries Anxiety Anxiety state, unspecified Class 3 severe obesity due to excess calories in adult, unspecified BMI, unspecified whether serious comorbidity present (HCC) Depression during , antepartum (HCC) documented in this encounter Care Teams Battery Parts Assembler Relationship Specialty Start Date End Date Lorelei Davis PA [address] [place] [id number] PCP - General Physician Ticket Chopper Assembler 10/17/19 documented as of this encounter
--- OUTSIDE RECORDS SUMMARY | 2024-04-06 17:20 | XMS_ITS | Encounter Summary ---
Author Organization [facility] Address [address] [place] [address] Care Team Providers Care Shampoo Technician Name Role Phone Lorelei Davis Primary Care Provider Encounter Details Date Type Department Care Team (Latest Contact Info) Description 01/13/2020 Travel Social History Tobacco Use Types Packs/Day Years [...] have Coronavirus / COVID-19? No / Unsure 01/13/2020 5:19 PM CDT documented as of this encounter Plan of Treatment Not on file documented as of this encounter Visit Diagnoses Not on filedocumented in this encounter Care Teams Shampoo Technician Relationship Specialty Start Date End Date Lorelei Davis PA [address] [place] [id number] PCP - General Physician Post Splitter 10/17/19 documented as of this encounter
--- OUTSIDE RECORDS SUMMARY | 2024-04-06 17:20 | XMS_ITS | Encounter Summary ---
Author Organization [facility] Address [address] [place] [address]. [place] [address] [place] [address] Care Team Providers Care Dianeticist Name Role Phone Lorelei Davis PA-C Primary Care Provider [phone] Encounter Details Date Type Department Care Team (Latest Contact Info) Description 07/23/2021 Travel Social History Tobacco Use Types Packs/Day Years Used Date Smoking Tobacco: Never Smokeless Tobacco: Never Alcohol Use Standard Drinks/Week Comments Not Currently 0 (1 standard drink = 0.6 oz pur e alcohol) Comments No Sex and Gender Information Value Date Recorded Sex Assigned at Not on file Legal Sex Female 7:58 PM CDT Gender Identity Not on file Sexual Orientation Not on file COVID-19 Exposure Response Date Recorded In the last 10 days, have yo u been in contact with someone who was confirmed or suspected to have Coronavirus/COVID-19? No / Unsure 07/23/2021 8:13 PM CDT documented as of this encounter Functional Status * RETIRED Are you deaf or do you have serious difficulty hearing Answer Date of Assessment Author Status No 02/16/2020 10:36 AM THREADING MACHINE FEEDER AUTOMATIC Acti ve * RETIRED Are you blind or do you have serious difficulty seeing, even when wearing glasses? Answer Date of Assessment Author Status No 02/16/2020 10:36 AM THREADING MACHINE FEEDER AUTOMATIC Acti ve * Do you have serious difficulty walking or climbing stairs? Answer Date of Assessment Author Status No 02/16/2020 10:36 AM Kim Pyle RN Active * Do you have difficulty dressing or bathing? Answer Date of Assessment Author Status No 02/16/2020 10:36 AM Kim Pyle RN Active * Because of a physical, mental, or emotional condition, do you have difficulty doing errands alone such as visiting a doctor's office or shopping? Answer Date of Assessment Author Status No 02/16/2020 10:36 AM Kim Pyle RN Active documented as of this encounter Mental Status * Because of a physical, mental, or emotional condition, do you have serious difficulty concentrating, remembering, or making decisions? Answer Entry Date Author Status No 02/16/2020 10:36 AM Kim Pyle RN Active documented in this encounter Plan of Treatment Not on file documented as of this encounter Visit Diagnoses Not on filedocumented in this encounter Care Teams Dianeticist Relationship Specialty Start Date End Date Lorelei Davis PA-C PCP - General NURSE PRACTITIONER 06/24/19 documented as of this encounter
--- OUTSIDE RECORDS SUMMARY | 2024-04-06 17:20 | XMS_ITS | Encounter Summary ---
Author Organization [facility] Address [address] [place] [address] Care Team Providers Care Recovery Manager Name Role Phone Lorelei Davis Primary Care Provider Reason for Visit * Reason Comments Biophysical Profile FAD NST Encounter Details Date Type Department Care Team (Latest Contact Info) Description 02/03/2020 3:14 PM CDT - 02/03/2020 11:59 PM CDT Hospital Encounter [facility] [address] [place] [address] Robb Botello MD [address] [id number] Discharge Disposition: Home or Self Care Social [...] have Coronavirus / COVID-19? No / Unsure 02/03/2020 4:32 PM CDT documented as of this encounter Last Filed Vital Signs Vital Sign Reading Time Taken Comments Blood Pressure 116/65 02/03/2020 4:16 PM CDT Pulse 93 02/03/2020 4:16 PM CDT Temperature - - Respiratory Rate - - Oxygen Saturation - - Inhaled Oxygen Concentration - - Weight - - Height - - Body Mass Index - [...] as of this encounter Progress Notes * Minerva Paiz RN - 02/03/2020 4:00 PM CDT Pt here today for ultrasound and NST. Reports feeling good movement. NST reactive. Denies feeling contractions/cramping. Denies headaches, visual changes, edema, and epigastric pain. Returning on 02/09 for repeat testing. Denies further questions or concerns for her care today. documented in this encounter Plan of Treatment Not on file documented as of this encounter Procedures Procedure Name Priority Date/Time Associated Diagnosis Comments BIOPHYSICAL PROFILE W NST Routine 02/03/2020 3:28 PM CDT Supervision of normal first , antepartum (HCC) Current mild episode of major depressive disorder, unspecified whether recurrent (HCC) Anxiety Current mild episode of major depressive disorder without prior episode (HCC) documented in this encounter Results * BIOPHYSICAL PROFILE W NST (02/03/2020 3:28 PM CDT) Anatomical Region Laterality Modality Other 02/03/2020 3:28 PM CDT Narrative 02/03/2020 4:42 PM CDT ?[facility] ?PHONE: ??FAX: ? Pat. Name: ?ISMAEL PEÑA Pat. No: ?[id number] Study Date: ?? 02/03/2020 ??3:28pm , Age: ? 1980, 39 Pregnancies: ?? 1 Height: ? 64 in Weight: ? 260 lb LMP: ?05/20/2019 GA by LMP: ?37w0d GA by Base: ?? 37w0d ?? HANNAH: 02/24/2020 GA by US: ? 37w0d ?? HANNAH: 02/24/2020 GA Selected: ??37w0d (LMP) HANNAH: ?02/24/2020 Referring MD: Tammy Spann MD Senior Oracle Applications Developer: ??Maegan Lundberg RDMS CPT4: ? 01776,77558 BMI: ?44.62 Hist/Ind: ? AMA ?Obesity Class 3 ?PCOS ?History of DVT after ankle surgery ?Depression MEASUREMENTS & AGE ? GROWTH EVALUATION Measurement ??GA ? Range ? Srce %for GA Ratios ----- ---- ------- BPD ??9.4 cm 38w1d (53a1y-64k0d) Hadl BPD 89% FL/BPD 0.72 (0.71 - 0.87) HC ??34.4 cm 39w5d (39o6g-97p1o) Hadl HC ??86% FL/AC ??0.19 (0.20 - 0.24* AC ??35.3 cm 39w1d (25l2m-35m1w) Hadl AC ??97% HC/AC ??0.98 (0.91 - 1.10) FL ?? 6.7 cm 34w5d (10q4s-39o4v) Hadl FL ??5% CI ? 0.77 (0.70 - 0.86) HL ?? 6.1 cm 35w2d (77r9q-15t7s) Seferino HL ??21% GA for sonogram 37w0d (65w0r-99p0t) ?? Weight Estimate: based on (BPD,HC,AC,FL) Hadlock ?Weight: 3403 gm (2906-3900gm) Had ? : 7lbs, 8oz ? Normal: 3028 gm (2271- 3785gm) Had ? Wt% ? 83% for 37w0d Heart Rate: 142 bpm Amniotic Fluid Index: 34.5cm (07.5-24.4)* Q1: 10.6cm ??Q2: 7.0cm ??Q3: 8.2cm ??Q4: 8.8cm ?? Biophysical Profile: 01/16 Breathin ?? Tone: 2 ?? NST: 2 Movement: ??2 ?? AFV: ??2 EVAL, PLACENTA Presentation: cephalic Placenta: posterior:fundal Heart Rate: 142 bpm Amniotic Fluid Volume: polyhydramnios CLINICAL SUMMARY Study Number: 5 ?? A single fetus is seen in cephalic presentation. ??The measurements today are consistent with greater than expected growth. ??The HANNAH is based on LMP and prior ultrasound examination. ??The amniotic fluid volume is increased. ?? IMPRESSION: Single, live, intrauterine at 37w0d ?? LGA size (based on an AC at the 97th %ile) Amniotic fluid volume: polyhydramnios ?? Biophysical profile: Reassuring ?? RECOMMEND: Continue weekly testing ?? Thank you for allowing us the opportunity to care for your patient Robb Botello MD <Electronic Signature> ??02/03/2020 04:42pm Aris [facility]ITO ORDERABLES documented in this encounter Visit Diagnoses Diagnosis Supervision of normal first , antepartum (HCC) Antepartum multigravida of advanced maternal age (HCC) Encounter for ultrasound (HCC) Encounter for routine screening for malformation using ultrasonics Class 3 severe obesity due to excess calories in adult, unspecified BMI, unspecified whether serious comorbidity present (HCC) Polycystic ovary syndrome Polycystic ovaries Anxiety Anxiety state, unspecified Current mild episode of major depressive disorder, unspecified whether recurrent (HCC) Primigravida of advanced maternal age in third trimester (HCC) Excessive growth affecting management of in third trimester, single or unspecified fetus (HCC) Polyhydramnios in third trimester complication, single or unspecified fetus (HCC) 37 weeks gestation of (HCC) state, incidental documented in this encounter Care Teams Recovery Manager Relationship Specialty Start Date End Date Lorelei Davis PA [address] [place] [id number] PCP - General Physician Platinum And Palladium Kettle Tender 10/17/19 documented as of this encounter
--- OUTSIDE RECORDS SUMMARY | 2024-04-06 17:20 | XMS_ITS | Encounter Summary ---
Author Organization [facility] Address [address] [place] [address] Care Team Providers Care Web User Experience Strategist Name Role Phone Lorelei Davis Primary Care Provider Encounter Details Date Type Department Care Team (Latest Contact Info) Description 11/11/2019 Travel Social History Tobacco Use Types Packs/Day Years Used Date Smoking Tobacco: Never Assessed Comments Yes Sex and Gender Information Value [...] on filedocumented in this encounter Care Teams Web User Experience Strategist Relationship Specialty Start Date End Date Lorelei Davis PA [address] [place] [id number] PCP - General Physician Title Clerk Automobile 10/17/19 documented as of this encounter
--- OUTSIDE RECORDS SUMMARY | 2024-04-06 17:20 | XMS_ITS | Encounter Summary ---
Author Organization [facility] Address [address] [place] [address]. [place] [address] [place] [address] Care Team Providers Care Ceo & Founder Name Role Phone Lorelei Davis PA-C Primary Care Provider [phone] Reason for Visit * Reason Comments Headache Flank Pain Encounter Details Date Type Department Care Team (Late st Contact Info) Description 06/09/2020 9:29 AM DIRECTOR OF COMMUNITY EDUCATION - 06/09/2020 10:45 AM DIRECTOR OF COMMUNITY EDUCATION Emergency [facility] Emergency Room [address] [place] [address] Reginaldo Reyes MD [address] [place] [address] Headache; Flank Pain Discharge Disposition: Home or Self Care (Routine Discharge) Social History Tobacco Use Types Packs/Day Years [...] have Coronavirus / COVID-19? No / Unsure 06/09/2020 9:20 AM DIRECTOR OF COMMUNITY EDUCATION documented as of this encounter Last Filed Vital Signs Vital Sign Reading Time Taken Comments Blood Pressure 119/66 06/09/2020 9:33 AM DIRECTOR OF COMMUNITY EDUCATION Pulse 112 06/09/2020 9:33 AM DIRECTOR OF COMMUNITY EDUCATION Temperature 36.3 ??C (97.4 ??F) 06/09/2020 9:33 AM CS T Respiratory Rate 20 06/09/2020 9:33 AM DIRECTOR OF COMMUNITY EDUCATION Oxygen Saturation 98% 06/09/2020 9:33 AM DIRECTOR OF COMMUNITY EDUCATION Inhaled Oxygen Concentration - - Weight 104.3 kg (230 lb) 06/09/2020 9:33 AM DIRECTOR OF COMMUNITY EDUCATION Height 165.1 cm (5' 5 ) 06/09/2020 9:33 AM DIRECTOR OF COMMUNITY EDUCATION Body Mass Index 38.27 06/09/2020 9:33 AM DIRECTOR OF COMMUNITY EDUCATION documented in this encounter Functional Status * RETIRED Are you deaf or do you have serious difficulty hearing Answer Date of Assessment Author Status No 02/16/2020 10:36 AM DIRECTOR OF COMMUNITY EDUCATION Acti ve * RETIRED Are you blind or do you have serious difficulty seeing, even when wearing glasses? Answer Date of Assessment Author Status No 02/16/2020 10:36 AM DIRECTOR OF COMMUNITY EDUCATION Acti ve * Do you have serious [...] Pyle RN Active documented in this encounter Discharge Instructions * Attachments The following attachments cannot be sent through Care Everywhere. * Viral Syndrome Discharge Instructions (Estonian) * Low Back Pain in Adults (Estonian) documented in this encounter Medications at Time of Discharge montelukast 10 MG tablet Take 10 mg by mouth. ondansetron (ZOFRAN) 4 MG tablet Take 1 tablet (4 mg total) by mouth every 8 (eight) hours as needed for Nausea. 12 tablet 06/09/2020 sertraline 100 MG tablet Take 200 mg by mouth daily. cyclobenzaprine 10 MG tablet Take 1 tablet (10 mg total) by mouth 3 (three) times daily as needed for Muscle Spasms. 12 tablet 06/09/2020 06/03/2023 predniSONE 20 MG tablet Take 2 tablets (40 mg total) by mouth daily for 5 days. 10 tablet 06/09/2020 06/14/2020 documented as of this encounter ED Notes * Reginaldo Reyes MD - 06/09/2020 9:48 AM CST Urgent Care Note Chief Complaint Chief Complaint Patient presents with ??? Headache ??? Flank Pain History of Present Illness Patient presents with 4 days of sinus congestion and bilateral ear pain. Several of her children have been ill, diagnosed with viral illness. Yesterday she began to note left flank pain which is similar to symptoms of previous UTIs/pyelonephritis. She denies fevers or chills, denies dysuria or hematuria. Patient has been taking OTC cold medications without significant change in her symptoms. Painin the flank is somewhat worse with movement and palpation and may radiate at times around to the left lateral abdomen. Patient does note she's been having some vaginal spotting and her period has been slightly delayed. Medical History ALLERGIES: Allergies Allergen Reactions ??? Iodinated Diagnostic Agents Anaphylaxis ??? Lavender Oil Headache ??? Vanilla Headache MEDICATIONS: Prior to Admission medications Medication Sig Start Date End Date Taking? Authorizing Provider cyclobenzaprine 10 MG tablet Take 1 tablet (10 mg total) by mouth 3 (three) times daily as needed for Muscle Spasms. 06/09/20 Yes Reginaldo Reyes MD montelukast 10 MG tablet Take 10 mg by mouth. Yes Doc Abstract ondansetron (ZOFRAN) 4 MG tablet Take 1 tablet (4 mg total) by mouth every 8 (eight) hours as needed for Nausea. 06/09/20 Yes Reginaldo Reyes MD predniSONE 20 MG tablet Take 2 tablets (40 mg total) by mouth daily for 5 days. 06/09/20 06/14/20 Yes Reginaldo Reyes MD sertraline 100 MG tablet Take 200 mg by mouth daily. Yes Doc Abstract PAST MEDICAL HISTORY: Past Medical History: Diagnosis Date ??? Anxiety ??? Asthma controlled-allergy induced ??? Depression ??? PCOS (polycystic ovarian syndrome) ??? Personal history of DVT (deep vein thrombosis) after ankle surgery PAST SURGICAL HISTORY: Past Surgical History: Procedure Laterality Date ??? ANKLE SURGERY ??? SECTION ??? CHOLECYSTECTOMY ??? TONSILLECTOMY ??? UTERINE EXPLORA W/SYR 3MM MOD 1 FAMILY HISTORY: Family History Problem Relation Name Age of Onset ??? Asthma Mother Severe ??? Other (Other) Mother Addisons disease, Chronic fatigue syndrome ??? Heart Father A. Fib SOCIAL HISTORY: Social History Tobacco Use ??? Smoking status: Never Smoker ??? Smokeless tobacco: Never Used Substance Use Topics ??? Alcohol use: Not Currently ??? Drug use: Never Review of Systems Review of Systems Constitutional: Negative for chills and fever. HENT: Positive for congestion, ear pain, sinus pressure and sinus pain. Negative for facial swelling. Eyes: Negative for discharge. Respiratory: Negative for cough, shortness of breath and wheezing. Cardiovascular: Negative for chest pain and palpitations. Gastrointestinal: Positive for nausea. Negative for abdominal pain and vomiting. Genitourinary: Positive for flank pain and vaginal bleeding (vaginal spotting). Negative for dysuria and pelvic pain. Musculoskeletal: Negative for joint swelling. Skin: Negative for color change and rash. Neurological: Negative for weakness and numbness. Hematological: Negative for adenopathy. Psychiatric/Behavioral: Negative for confusion. All other systems reviewed and are negative. Physical Exam Filed Vitals: 06/09/20 0933 BP: 119/66 Pulse: 112 Resp: 20 Temp: 97.4 ??F (36.3 ??C) TempSrc: Temporal SpO2: 98% Weight: 104.3 kg (230 lb) Height: 5' 5 (1.651 m) Physical Exam Vitals signs and nursing note reviewed. Constitutional: General: She is not in acute distress. Appearance: She is well-developed. She is obese. HENT: Head: Normocephalic and atraumatic. Right Ear: There is no impacted cerumen. Left Ear: There is no impacted cerumen. Ears: Comments: No significant TM erythema, no effusions Eyes: Conjunctiva/sclera: Conjunctivae normal. Cardiovascular: Rate and Rhythm: Normal rate and regular rhythm. Heart sounds: Normal heart sounds. No murmur. No friction rub. No gallop. Pulmonary: Effort: Pulmonary effort is normal. No respiratory distress. Breath sounds: Normal breath sounds. No wheezing or rales. Abdominal: General: There is no distension. Palpations: Abdomen is soft. There is no mass. Tenderness: There is no abdominal tenderness. There is no guarding. Musculoskeletal: Comments: Tender left lumbar paraspinal musculature and left flank Skin: General: Skin is warm and dry. Neurological: Mental Status: She is alert and oriented to person, place, and time. Psychiatric: Behavior: Behavior normal. Thought Content: Thought content normal. Judgment: Judgment normal. Diagnostic Studies / Procedures RHYTHM STRIP INTERPRETATION: Rhythm: Sinus tachycardia, No ventricular ectopy Pulse: 112 PULSE OX INTERPRETATION: SpO2: 98 % Oxygen delivery: Room air Interpretation: No hypoxia at this time EKG: No results found for this visit on 06/09/20. EKG interpretation: EKG not performed. Dr. Reyes has personally visualized and interpreted the EKG. LABORATORY STUDIES: Results for orders placed or performed during the hospital encounter of 06/09/20 URINALYSIS, AUTO, COMPLETE Result Value Ref Range COLOR (U) YELLOW TRANSPARENCY HAZY Specific [place] (U) 1.020 1.000 - 1.030 U PH 7.0 5.0 - 9.0 LEUKOCYTE ESTERASE NEGATIVE NEGATIVE NITRITES NEGATIVE NEGATIVE PROTEIN (U) TRACE (A) NEGATIVE URINE GLUCOSE NEGATIVE NEGATIVE U KETONES NEGATIVE NEGATIVE BILIRUBIN (U) NEGATIVE NEGATIVE BLOOD NEGATIVE NEGATIVE WBC/HPF 0-5 0 - 5 /HPF RBC/HPF NONE SEEN 0 - 5 /HPF EPI/HPF MODERATE /HPF CULTURE & SENSITIVITY INDICATED? CULTURE IS NOT INDICATED CRYSTALS MODERATE /HPF BACTERIA (URINE) RARE /HPF TEST URINE Result Value Ref Range Specific [place] (U) 1.020 PREG TEST NEGATIVE NEGATIVE IMAGING STUDIES No orders to display Dr. Reyes has personally visualized and interpreted all imaging studies. ED Course / Medical Decision Making MDM Number of Diagnoses or Management Options Acute left-sided low back pain without sciatica: new and requires workup Viral syndrome: new and requires workup Diagnosis management comments: DDx: Sinusitis, viral syndrome, UTI, pyelonephritis UA negative, negative . Exam consistent with viral syndrome, MSK back pain. No indication for antibiotics. Will Rx meds for symptomatic relief of complaints. Rapid covid swab sent given she wanted clearance for return to work. Amount and/or Complexity of Data Reviewed Clinical lab tests: ordered and reviewed Risk of Complications, Morbidity, and/or Mortality Presenting problems: low Diagnostic procedures: low Management options: low Medications - No data to display SNOMED CT(R) 1. Acute left-sided low back pain without sciatica ACUTE LOW BACK PAIN 2. Viral syndrome VIRAL DISEASE Current Discharge Medication List START taking these medications Details cyclobenzaprine 10 MG tablet Take 1 tablet (10 mg total) by mouth 3 (three) times daily as needed for Muscle Spasms. Qty: 12 tablet, Refills: 0 Class: Eprescribe Pharmacy: [facility] [address] [place] [address] (Ph #: [phone]) ondansetron (ZOFRAN) 4 MG tablet Take 1 tablet (4 mg total) by mouth every 8 (eight) hours as needed for Nausea. Qty: 12 tablet, Refills: 0 Class: Eprescribe Pharmacy: [facility] [address] [place] [address] (Ph #: [phone]) predniSONE 20 MG tablet Take 2 tablets (40 mg total) by mouth daily for 5 days. Qty: 10 tablet, Refills: 0 Class: Eprescribe Pharmacy: [facility] [address] [place] [address] (Ph #: [phone]) Disposition: Discharge Follow-Up: Lorelei Davis PA-C [address] [place] [address] As needed Reginaldo Reyes MD 06/09/2020 10:44 AM Reginaldo Reyes MD 06/09/20 1044 CTOR OF COMMUNITY EDUCATION * Bob Austin RN - 06/09/2020 9:40 AM CSTSummary: Sinus pressure, flank pain Pt to ED via POV with c/o ear, throat, and head pain since last noc, accompanied with left side hurting near her flank area, had vomiting last noc as well, states acid primarily, took Benadryl, [place] threw up after, denies urinary symptoms, rates pain to back at 7/10 CTOR OF COMMUNITY EDUCATION documented in this encounter Plan of Treatment Not on file documented as of this encounter Procedures Procedure Name Priority Date/Time Associated Diagnosis Comments CORONAVIRUS (COVID-19) ANTIGEN DIRECT OPTICAL STAT 06/09/2020 10:40 AM DIRECTOR OF COMMUNITY EDUCATION TEST URINE STAT 06/09/2020 10:03 AM DIRECTOR OF COMMUNITY EDUCATION URINALYSIS, AUTO, COMPLETE STAT 06/09/2020 10:03 AM DIRECTOR OF COMMUNITY EDUCATION documented in this encounter Results * CORONAVIRUS (COVID-19) ANTIGEN [RAPID IN HOUSE TEST] (06/09/2020 10:40 AM DIRECTOR OF COMMUNITY EDUCATION) CORONAVIRUS ANTIGEN IA NEGATIVE NEGATIVE 06/09/2020 11:00 AM DIRECTOR OF COMMUNITY EDUCATION [facility] Comment: NEGATIVE RESULTS DO NOT RULE OUT SARS-COV-2 INFECTION AND SHOULD NOT BE USED THE SOLE BASIS FOR TREATMENT OR PATIENT MANAGEMENT DECISIONS, INCLUDING INFECTION CONTROL DECISIONS. NEGATIVE RESULTS SHOULD BE CONSIDERED IN THE CONTEXT OF A PATIENT'S RECENT EXPOSURES, HISTORY AND THE PRESENCE OF CLINICAL SIGNS AND SYMPTOMS CONSISTENT WITH COVID 19. THIS TEST HAS BEEN AUTHORIZED BY THE FDA UNDER AN EMERGENCY USE AUTHORIZATION (EUA) FOR USE BY AUTHORIZED LABORATORIES. SPECIMEN TYPE NASAL 06/09/2020 10:40 AM [facility] FIRST TEST YES 06/09/2020 10:40 AM DIRECTOR OF COMMUNITY EDUCATION [facility] EMPLOYED IN HEALTHCARE NO 06/09/2020 10:40 AM DIRECTOR OF COMMUNITY EDUCATION [facility] SYMPTOMATIC DEFINED BY CDC YES 06/09/2020 10:40 AM [facility] DATE OF SYMPTOM ONSET [id number] 06/09/2020 10:40 AM DIRECTOR OF COMMUNITY EDUCATION [facility] HOSPITALIZATION STATUS NO 06/09/2020 10:40 AM DIRECTOR OF COMMUNITY EDUCATION [facility] PATIENT IN ICU UNKNOWN 06/09/2020 10:46 AM DIRECTOR OF COMMUNITY EDUCATION [facility] RESIDENT OF [facility] NO 06/09/2020 10:40 AM DIRECTOR OF COMMUNITY EDUCATION [facility] NOT 06/09/2020 10:40 AM DIRECTOR OF COMMUNITY EDUCATION [facility] Specimen from nose (specimen) NASAL STRUCTURE / Unknown 06/09/2020 10:40 AM DIRECTOR OF COMMUNITY EDUCATION us Reginaldo Reyes MD MICROBIOLOGY - GENERAL ORDERABLE S Final Result Performing Organization Address City/[facility]/ZIP Co de Phone Number [facility] [address] [place] [address], [place] [phone] * TEST URINE (06/09/2020 10:03 AM DIRECTOR OF COMMUNITY EDUCATION) SPECIFIC GRAVITY (U) 1.020 06/09/2020 10:21 AM DIRECTOR OF COMMUNITY EDUCATION [facility] PREG TEST NEGATIVE NEGATIVE 06/09/2020 10:21 AM [facility] URINE SPECIMEN OBTAINED BY CLEAN CATCH PROCEDURE / Unknown 06/09/2020 10:03 AM DIRECTOR OF COMMUNITY EDUCATION us Reginaldo Reyes MD URINE ORDERABLES Final Result [facility] [address] [place] [address], [place] [phone] * (ABNORMAL) URINALYSIS, AUTO, COMPLETE (06/09/2020 10:03 AM DIRECTOR OF COMMUNITY EDUCATION) COLOR (U) YELLOW 06/09/2020 10:26 AM [facility] TRANSPARENCY HAZY 06/09/2020 10:26 AM DIRECTOR OF COMMUNITY EDUCATION [facility] SPECIFIC GRAVITY (U) 1.020 1.000 - 1.030 06/09/2020 10:26 AM [facility] U PH 7.0 5.0 - 9.0 06/09/2020 10:26 AM [facility] LEUKOCYTES (U) NEGATIVE NEGATIVE 06/09/2020 10:26 AM [facility] NITRITES NEGATIVE NEGATIVE 06/09/2020 10:26 AM [facility] PROTEIN (U) TRACE(A) NEGATIVE 06/09/2020 10:26 AM [facility] URINE GLUCOSE NEGATIVE NEGATIVE 06/09/2020 10:26 AM [facility] KETONES MG/DL (U) NEGATIVE NEGATIVE 06/09/2020 10:26 AM [facility] BILIRUBIN (U) NEGATIVE NEGATIVE 06/09/2020 10:26 AM [facility] BLOOD (U) NEGATIVE NEGATIVE 06/09/2020 10:26 AM [facility] WBC/HPF 0-5 0 - 5 /HPF 06/09/2020 10:26 AM [facility] RBC/HPF NONE SEEN 0 - 5 /HPF 06/09/2020 10:26 AM [facility] EPI/HPF MODERATE /HPF 06/09/2020 10:26 AM [facility] CULTURE & SENSITIVITY INDICATED? CULTURE IS NOT INDICATED 06/09/2020 10:26 AM [facility] CRYSTALS (U) MODERATE /HPF 06/09/2020 10:26 AM [facility] Comment:AMORPHOUS MATERIAL BACTERIA (U) RARE /HPF 06/09/2020 10:26 AM [facility] URINE SPECIMEN OBTAINED BY CLEAN CATCH PROCEDURE / Unknown 06/09/2020 10:03 AM [facility] us Reginaldo Reyes MD URINE ORDERABLES Final Result [facility] [address] [place] [address], documented in this encounter Visit Diagnoses Diagnosis Acute left-sided low back pain without sciatica- Primary Viral syndrome Unspecified viral infection, in conditions classified elsewhere and of unspecified site documented in this encounter Additional Health Concerns Infection Onset Date Last Indicated Resolved Time COVID-19 Rule Out 06/09/2020 06/09/2020 06/09/2020 11:00 AM DIRECTOR OF COMMUNITY EDUCATION documented as of this encounter Care Teams Ceo & Founder Relationship Specialty Start Date End Date Lorelei Davis PA-C PCP - General NURSE PRACTITIONER 06/24/19 documented as of this encounter
--- OUTSIDE RECORDS SUMMARY | 2024-04-06 17:20 | XMS_ITS | Encounter Summary ---
Author Organization [facility] Address [address] [place] [address] Care Team Providers Care Key Ringer Name Role Phone Lorelei Davis Primary Care Provider [phone] Encounter Details Date Type Department Care Team (Latest Contact Info) Description 11/24/2019 Travel Social History Tobacco Use Types Packs/Day [...] have Coronavirus / COVID-19? No / Unsure 11/24/2019 4:31 PM CDT documented as of this encounter Plan of Treatment Not on file documented as of this encounter Visit Diagnoses Not on filedocumented in this encounter Care Teams Key Ringer Relationship Specialty Start Date End Date Lorelei Davis PA [address] [place] [address] PCP - General Physician Turret Lathe Operator 10/17/19 documented as of this encounter
--- OUTSIDE RECORDS SUMMARY | 2024-04-06 17:20 | XMS_ITS | Encounter Summary ---
Author Organization [facility] Address [address] [place] [address]. [place] [address] [place] [address] Care Team Providers Care Skinning Machine Feeder Name Role Phone Lorelei Davis PA-C Primary Care Provider [phone] Encounter Details Date Type Department Care Team (Latest Contact Info) Description 06/09/2020 Travel Social History Tobacco Use Types Packs/Day [...] COVID-19? No / Unsure 06/09/2020 9:20 AM AP PROCESSOR documented as of this encounter Functional Status * RETIRED Are you deaf or do you have serious difficulty hearing Answer Date of Assessment Author Status No 02/16/2020 10:36 AM AP PROCESSOR Acti ve * RETIRED Are you blind or do you have serious difficulty seeing, even when wearing glasses? Answer Date of Assessment Author Status No 02/16/2020 10:36 AM AP PROCESSOR Acti ve * Do you have serious difficulty walking or climbing stairs? Answer Date of Assessment Author Status No 02/16/2020 10:36 AM AP PROCESSOR Kim Peace RN Active * Do you have difficulty dressing or bathing? Answer Date of Assessment Author Status No 02/16/2020 10:36 AM AP PROCESSOR Kim Peace RN Active * Because of a physical, [...] Diagnoses Not on filedocumented in this encounter Additional Health Concerns Infection Onset Date Last Indicated Resolved Time COVID-19 Rule Out 06/09/2020 06/09/2020 06/09/2020 11:00 AM AP PROCESSOR documented as of this encounter Care Teams Skinning Machine Feeder Relationship Specialty Start Date End Date Lorelei Davis PA-C PCP - General NURSE PRACTITIONER 06/24/19 documented as of this encounter
--- OUTSIDE RECORDS SUMMARY | 2024-04-06 17:20 | XMS_ITS | Clinical Summary ---
Author Organization [facility] Address [address] [place] [address] Care Team Providers Care Cut Off Tender Glass Name Role Phone Lorelei Davis Primary Care Provider Source Comments [facility],non-owned Affiliates and Associated Physician Practices is amultiple site organization consisting of ambulatory clinics and hospital sitesin [place], [place], [place] and [place]. This disclosure is being madepursuant to the Care Everywhere program and may not contain all information available regarding this patient. Last updated 17.[facility] Allergies Active Allergy Reactions Criticality Noted Date Comments Contrast-Iodinated Agents For Ct/Other Unknown 10/15/2019 Lavender Oil Headache 11/13/2019 Vanilla Headache 11/13/2019 Medications * Be aware that medications may not be up to date on this document. Alwaysverify current medications with the patient. Medication Sig Dispensed Refills Start Date End Date Status montelukast (SINGULAIR) 10 MG tablet Take 10 mg by mouth at bedtime Active Vit-Fe Fumarate-FA ( VITAMIN) 28-0.8 MG tablet Take 1 tablet by mouth once daily Active diphenhydrAMINE (BENADRYL) 25 MG capsule Take 25 mg by mouth 2 times daily Active sertraline (ZOLOFT) 100 MG tablet Take 200 mg by mouth once daily Active aspirin (ASPIRIN) 81 MG chew tablet Take 162 mg by mouth once daily Active Active Problems Problem Noted Date Diagnosed Date Supervision of normal first , antepartu m 10/15/2019 Antepartum multigravida of advanced maternal age 0710/15/2019 Encounter for ultrasound 10/15/2019 Class 3 severe obesity due to excess calories in adult 10/15/2019 Polycystic ovary syndrome 10/15/2019 Depression 10/15/2019 Anxiety 10/15/2019 Family History Medical History Relation Name Comments Arthritis - Rheumatoid Father Lupus Father Cancer - Breast Paternal Grandmother Relation Name Status Comments Father Paternal Grandmother Social History Tobacco Use Types Packs/Day Years [...] of Binge Drinking Not on file 09/2019 Sex and Gender Information Value Date Recorded Sex Assigned at Not on file Gender Identity Not on file Sexual Orientation Not on file Last Filed Vital Signs Vital Sign Reading Time Taken Comments Blood Pressure 118/70 02/10/2020 3:44 PM CREW CHIEF Pulse 113 02/10/2020 3:44 PM CREW CHIEF Temperature - - Respiratory Rate 18 01/13/2020 4:40 PM CDT Oxygen Saturation 100% 11/13/2019 3:17 PM CDT Inhaled Oxygen Concentration - - Weight 118.4 kg (261 lb) 12/16/2019 4:42 PM CDT Height - - Body Mass Index - - Plan of Treatment Health Maintenance Due Date Last Done Comments LIPID TESTING 1982 MAMMOGRAM 1982 PAP SMEAR 1982 HIV SCREENING 1997 HEPATITIS C SCREENING 02/23/2000 DTAP/TDAP/TD VACCINES (1 - Tdap) 2001 HEPATITIS B VACCINE (1 of 3 - 19+ 3-dose series) 2001 DEPRESSION SCREENING 04/09/2023 COVID-19 VACCINE ( - 2023-2 5 season) 2023 INFLUENZA VACCINE (#1) 2023 ZOSTER VACCINE (1 of 2) 02/28/2032 HIB VACCINE Aged Out No longer eligi ble based on patient's age to complete this topic HPV VACCINE Aged Out No longer eligi ble based on patient's age to complete this topic MENINGOCOCCAL VACCINE Aged Out No shandra maris eligible based on patient's age to complete this topic PNEUMOCOCCAL VACCINE Aged Out No long er eligible based on patient's age to complete this topic Care Teams Cut Off Tender Glass Relationship Specialty Start Date End Date Lorelei Davis PA [facility] [place] [address] PCP - General Physician Photo Studio Assistant 10/17/19
--- OUTSIDE RECORDS SUMMARY | 2024-04-06 17:20 | XMS_ITS | Encounter Summary ---
Author Organization [facility] Address [address] [place] [address] Care Team Providers Care Bulb Grower Name Role Phone Lorelei Davis Primary Care Provider Encounter Details Date Type Department Care Team (Latest Contact Info) Description 02/03/2020 Travel Social History Tobacco Use Types Packs/Day [...] on filedocumented in this encounter Care Teams Bulb Grower Relationship Specialty Start Date End Date Lorelei Davis PA [address] [place] [address] PCP - General Physician Dye Tub Tender 10/17/19 documented as of this encounter
--- OUTSIDE RECORDS SUMMARY | 2024-04-06 17:20 | XMS_ITS | Clinical Summary ---
Author Organization [facility] Address [address] [place] [address]. [place] [address] [place] [address] Care Team Providers Care Customer Care Agent Name Role Phone Lorelei Davis PA-C Primary Care Provider +1- [phone] Allergies Active Allergy Reactions Criticality Noted Date Comments Iodinated Contrast Media Anaphylaxis High 10/15/2019 Lavender Oil Headache Low 11/13/2019 Vanilla Headache Low 11/13/2019 Medications sertraline 100 MG tablet Take 200 mg by mouth daily. Active montelukast 10 MG tablet Take 10 mg by mouth. Active ondansetron (ZOFRAN) 4 MG tablet Take 1 tablet (4 mg total) by mouth every 8 (eight) hours as needed for Nausea. 12 tablet 06/09/2020 Active Active Problems Problem Noted Date Diagnosed Date Encounter for induction of labor ([facility]) 02/15 Immunizations Name Administration Dates Next Due Flucelvax 6 Months+ (Prefilled Syringe) 04/18/19 20 Influenza Adult (Generic) 02/09/2020 Tdap (Boostrix) 11/30/2019 Family History Medical History Relation Comments Heart Father A. Fib Asthma Mother Severe Other Mother Addisons disease , Chronic fatigue syndrome Relation Status Comments Brother Alive Father Alive Mother Alive Social History Tobacco Use Types Packs/Day Years [...] Sign Reading Time Taken Comments Blood Pressure 134/90 06/03/2023 2:13 AM CAR WORKER HELPER Pulse 85 06/03/2023 2:13 AM CAR WORKER HELPER Temperature 36.2 ??C (97.2 ??F) 06/03/2023 2:47 AM CS T Respiratory Rate 18 06/03/2023 2:13 AM CAR WORKER HELPER Oxygen Saturation 100% 06/03/2023 2:13 AM CAR WORKER HELPER Inhaled Oxygen Concentration - - Weight 104.3 kg (230 lb) 06/03/2023 2:13 AM CAR WORKER HELPER Height 165.1 cm (5' 5 ) 06/03/2023 2:13 AM CAR WORKER HELPER Body Mass Index 38.27 06/03/2023 2:13 AM CAR WORKER HELPER Plan of Treatment Health Maintenance Due Date Last Done Comments Cervical Cancer Screening Pa p Smear (Age 30 to 64) Every 3 Years 1982 Annual Physical 1985 Hepatitis C 02/28/2000 Hepatitis B Vaccines (1 of 3 - 19+ 3-dose series) 2001 Cervical Cancer Screening Pa p with HPV Testing (Age 30 to 64) Every 5 Years 02/28/2012 Cervical Cancer Screening [facility] HPV 02/28/2012 COVID-19 Vaccine ( - 2023-2 5 season) 2023 Influenza Adult (#1) 2024 02/09/2020, 04/18/2019 Mammogram Screening 10/25/2024 10/25/2022 DTaP, Tdap and Td Vaccines ( 2 - Td or Tdap) 11/29/2029 11/30/2019 HPV Vaccines Aged Out No longer eligi ble based on patient's age to complete this topic Meningococcal Vaccine Aged Out No shandra maris eligible based on patient's age to complete this topic Pneumococcal Vaccine: Pediatrics (0 to 5 Years) and At-Risk Patients (6 to 64 Years) Aged Out No longer eligible b ased on patient's age to complete this topic RSV Immunizations Under 20 Months Aged Out No longer eligible b ased on patient's age to complete this topic Procedures Procedure Name Priority Date/Time Associated Diagnosis Comments MG SCREENING W IONA JESSICA DIGI Routine 10/25/2022 2:30 PM CDT Visit for screening mammogram from Last 3 Months or Most Recently Relevant to Health Maintenance Results * MG SCREENING W IONA JESSICA DIGI (10/25/2022 2:30 PM CDT) Anatomical Region Laterality Modality Breast Bilateral Mammography 10/25/2022 4:07 PM CDT Narrative 10/25/2022 4:20 PM CDT IMAGING STUDIES: ??MG SCREENING W IONA JESSICA DIGI ?DATE: ??10/25/2022 2:16 PM HISTORY: ??scr ?42-year-old female for screening study. No reported prior breast intervention. Reported history of female paternal family member with breast cancer at 50 years old. COMPARISON: None. Patient reports prior mammogram greater than 20 years ago and therefore this is examination to reestablish baseline. TECHNIQUE: Bilateral digital screening mammogram with CAD. ??Standard CC and MLO views. Additional bilateral CC nipple profile views and additional right MLO view. 2-D imaging and 3-D tomography. DISCUSSION: Scattered fibroglandular tissue. Benign calcifications No mammographically suspicious mass, microcalcification, or architectural distortion. IMPRESSION: 1. No mammographic evidence of malignancy. ??Recommend annual mammogram. 2. BI-RADS Category 2: Benign. 3. TISSUE TYPE: Category B - There are areas of scattered fibroglandular density. A) ??A negative report should not delay a biopsy if a dominant or ?clinically suspicious mass is present. B) ??Adenosis and dense breasts may obscure an underlying neoplasm. C) ??Study interpreted with computer aided detection. Ordered By: KIANA CHUNG Interpreted By: Jeremias Reyes, 10/25/2022 4:07 PM us Kiana Chung DO MAMMO Final Resu lt from Last 3 Months or Most Recently Relevant to Health Maintenance Insurance [facility] Advance Directives * Full Code (Latest Code Status on File) Date Activated Date Inactivated Comments 02/17/2020 5:34 PM 02/19/2020 4:10 PM * Full Code Date Activated Date Inactivated Comments 02/16/2020 9:40 AM 02/17/2020 5:34 PM * Full Code Date Activated Date Inactivated Comments 02/11/2020 4:34 PM 02/11/2020 8:26 PM * Full Code Date Activated Date Inactivated Comments 02/08/2020 7:42 PM 02/09/2020 12:47 AM Care Teams Customer Care Agent Relationship Specialty Start Date End Date Lorelei Davis PA-C PCP - General NURSE PRACTITIONER 06/24/19
--- OUTSIDE RECORDS SUMMARY | 2024-04-06 17:20 | XMS_ITS | Encounter Summary ---
Author Organization [facility] Address [address] [place] [address]. [place] [address] [place] [address] Care Team Providers Care Carpenter Refrigerator Name Role Phone Lorelei Davis PA-C Primary Care Provider +1- [phone] Encounter Details Date Type Department Care Team (Latest Contact Info) Description 06/03/2023 Travel Social History Tobacco Use Types Packs/Day [...] on file Sexual Orientation Not on file documented as of this encounter Functional Status * RETIRED Are you deaf or do you have serious difficulty hearing Answer Date of Assessment Author Status No 02/16/2020 10:36 AM CURRICULUM AND ASSESSMENT DIRECTOR Acti ve * RETIRED Are you blind or do you have serious difficulty seeing, even when wearing glasses? Answer Date of Assessment Author Status No 02/16/2020 10:36 AM CURRICULUM AND ASSESSMENT DIRECTOR Acti ve * Do you have serious [...] Assessment Author Status No 02/16/2020 10:36 AM CURRICULUM AND ASSESSMENT DIRECTOR Kobi, Kim L, RN Active documented as of this encounter [...] on filedocumented in this encounter Care Teams Carpenter Refrigerator Relationship Specialty Start Date End Date Lorelei Davis PA-C PCP - General NURSE PRACTITIONER 06/24/19 documented as of this encounter
--- OUTSIDE RECORDS SUMMARY | 2024-04-06 17:20 | XMS_ITS | Encounter Summary ---
Author Organization [facility] Address [address] [place] [address]. [place] [address] [place] [address] Care Team Providers Care Mathematics Faculty Member Name Role Phone Lorelei Davis PA-C Primary Care Provider +1- [phone] Reason for Referral * Imaging (Routine) - Closed Specialty Diagnoses / Procedures Referred By Robyn avalos Referred To Contact RADIOLOGY Diagnoses Visit for screening mammogram Procedures MG SCREENING W IONAKiana Maguire DO [address] [place] [address] Phone: tel: fax: Referral ID Status Reason Start Date Expiration Date Visits Re quested Visits Authorized [id number] Closed 10/18/2022 12/20/2023 1 1 Reason for Visit * Imaging (Routine) - Closed Specialty Diagnoses / Procedures Referred By Robyn avalos Referred To Contact RADIOLOGY Diagnoses Visit for screening mammogram Procedures MG SCREENING W IONA Kiana Pierson DO [address] [place] [address] Phone: tel: fax: Referral ID Status Reason Start Date Expiration Date Visits Re quested Visits Authorized [id number] Closed 10/18/2022 12/20/2023 1 1 Encounter Details Date Type Department Care Team (Latest Contact Info) Description 10/25/2022 2:14 PM CDT - 10/25/2022 11:59 PM CDT Hospital Encounter [facility] Mammography [address] [place] [address] Kiana Chung, DO [address] [place] [address] Discharge Disposition: Home or Self Care (Routine [...] Assessment Author Status No 02/16/2020 10:36 AM VISION REHABILITATION THERAPIST Acti ve * RETIRED Are you blind or do you have serious difficulty seeing, even when wearing glasses? Answer Date of Assessment Author Status No 02/16/2020 10:36 AM VISION REHABILITATION THERAPIST Acti ve * Do you have serious [...] Pyle RN Active documented in this encounter Medications at Time [...] for Muscle Spasms. 12 tablet 06/09/2020 06/03/2023 documented as of this encounter Plan of Treatment Not on file documented as of this encounter Procedures Procedure Name Priority Date/Time Associated Diagnosis Comments MG SCREENING W IONA JESSICA DIGI Routine 10/25/2022 2:30 PM CDT Visit for screening mammogram documented in this encounter Results * MG SCREENING W IONA JESSICA [...] Kiana Chung DO MAMMO Final Resu lt documented in this encounter Visit Diagnoses Diagnosis Visit for screening mammogram Other screening mammogram documented in this encounter Care Teams Mathematics Faculty Member Relationship Specialty Start Date End Date Lorelei Davis PA-C PCP - General NURSE PRACTITIONER 06/24/19 documented as of this encounter
--- OUTSIDE RECORDS SUMMARY | 2024-04-06 17:20 | XMS_ITS | Encounter Summary ---
Author Organization [facility] Address [address] [facility] [place] [address] Care Team Providers Care Puppet Engineer Name Role Phone Lorelei Davis Primary Care Provider Reason for Visit * Reason Comments Biophysical Profile FAD NST Encounter Details Date Type Department Care Team (Late st Contact Info) Description 02/10/2020 3:15 PM LUMPIA WRAPPER MAKER - 02/10/2020 11:59 PM LUMPIA WRAPPER MAKER Hospital Encounter [facility]aternal [facility] Care [address] [place] [address] Robb Botello MD [address] [facility] [address] [place] [address] Stanley Kincaid MD [address] [facility] [address] [place] [address] Discharge Disposition: Home or Self Care Social [...] Comments Blood Pressure 118/70 02/10/2020 3:44 PM LUMPIA WRAPPER MAKER Pulse 113 02/10/2020 3:44 PM LUMPIA WRAPPER MAKER Temperature - - Respiratory Rate - - [...] Diagnosis Comments BIOPHYSICAL PROFILE W NST Routine 02/10/2020 4:10 PM LUMPIA WRAPPER MAKER Supervision of normal first , antepartum (HCC) Current mild episode of major depressive disorder, unspecified whether recurrent (HCC) Anxiety Current mild episode of major depressive disorder without prior episode (HCC) documented in this encounter Results * BIOPHYSICAL PROFILE W NST (02/10/2020 4:10 PM LUMPIA WRAPPER MAKER) Anatomical Region Laterality Modality Other 02/10/2020 4:10 PM LUMPIA WRAPPER MAKER Narrative 02/10/2020 4:35 PM LUMPIA WRAPPER MAKER ? - [facility] ?PHONE: ??FAX: ? Pat. Name: ?ISMAEL PEÑA Pat. No: ?[id number] Study Date: ?? 02/10/2020 ??4:10pm , Age: ? 1980, 39 Pregnancies: ?? 1 Height: ? 64 in Weight: ? 260 lb LMP: ?05/20/2019 GA by LMP: ?38w0d GA by Base: ?? 38w0d ?? HANNAH: 02/24/2020 GA Selected: ??38w0d (From [facility]) HANNAH: ?02/24/2020 Referring MD: Tammy Spann MD [place] [place] Drawer: ??Maegan Lundberg RDMS CPT4: ? 99131,25729 BMI: ?44.62 Hist/Ind: ? AMA ?Obesity Class 3 ?PCOS ?History of DVT after ankle surgery ?Depression ?Polyhydramnios Heart Rate: 141 bpm Amniotic Fluid Index: 19.1cm (07.3-23.9) Q1: 5.6cm ??Q2: 3.9cm ??Q3: 3.2cm ??Q4: 6.4cm ?? EVAL, PLACENTA Presentation: cephalic Placenta: posterior:fundal Heart Rate: 141 bpm Amniotic Fluid Volume: normal CLINICAL SUMMARY Study Number: 6 ?? A single fetus is seen in cephalic presentation. ??The amniotic fluid volume is within normal limits. ?? The FHR baseline is 140 bpm during today's reactive NST. ??The FHR variability was moderate. ?? IMPRESSION: Single, live, intrauterine at 38w0d Amniotic fluid volume: within normal limits ?? Biophysical profile: Reassuring ?? RECOMMEND: Continue weekly testing through delivery Thank you for allowing us the opportunity to care for your patient. ?? Vidal Kincaid MD <Electronic Signature> ??02/10/2020 04:33pm Aris Hinkle MD [facility] ORDERABLES documented in this encounter Visit Diagnoses Diagnosis Supervision of normal first , antepartum (HCC) Antepartum multigravida of advanced maternal age (HCC) Encounter for ultrasound ([facility]) Encounter for routine screening for malformation using ultrasonics Polycystic ovary syndrome Polycystic ovaries Anxiety Anxiety state, unspecified Current mild episode of major depressive disorder, unspecified whether recurrent (HCC) Primigravida of advanced maternal age in third trimester (HCC) Obesity complicating , third trimester (HCC) Obesity, unspecified classification, unspecified obesity type, unspecified whether serious comorbidity present 38 weeks gestation of (HCC) state, incidental documented in this encounter Care Teams Puppet Engineer Relationship Specialty Start Date End Date Lorelei Davis PA [address] [place] [address] PCP - General Physician Residential Carpenter 10/17/19 documented as of this encounter
--- OUTSIDE RECORDS SUMMARY | 2024-04-06 17:20 | XMS_ITS | Encounter Summary ---
Author Organization [facility] Address [address] [facility] [place] [address] Care Team Providers Care Irish Moss Bleacher Name Role Phone Lorelei Davis Primary Care Provider Reason for Visit * Reason Comments Ultrasound Encounter Details Date Type Department Care Team (Latest Contact Info) Description 10/17/2019 11:14 AM CDT - 10/17/2019 11:59 PM CDT Hospital Encounter [facility] Maternal & Care [address] [place] [address] Pasquale Russ MD Discharge Disposition: Home or Self Care Social History Tobacco Use Types Packs/Day Years Used Date Smoking Tobacco: Never Assessed Comments Yes Sex and Gender Information Value Date Recorded Sex Assigned at Not on file Gender Identity Not on file Sexual Orientation Not on file documented as of this encounter Progress Notes * Brooke Rodríguez - 10/17/2019 11:15 AM CDT Temp taken by: CF Patient temp: 97.0 Guest temp: 98.1 Patient and Guest: Respiratory Symptoms: N GI Symptoms: N Fever in past week: N Loss of smell/taste: N Muscle pain: N Headache: N Sore Throat: N Traveled recently: N In contact with anyone known/suspected to have Covid: N Patient wearing mask: Y Mask Given: N documented in this encounter Plan of Treatment Not on file documented as of this encounter Procedures Procedure Name Priority Date/Time Associated Diagnosis Comments SONOGRAM - COMPLETE Routine 10/17/2019 11:29 AM CDT Supervision of normal first , antepartum (HCC) Antepartum multigravida of advanced maternal age (HCC) Encounter for ultrasound ([facility]) Class 3 severe obesity due to excess calories in adult, unspecified BMI, unspecified whether serious comorbidity present (HCC) Polycystic ovary syndrome Depression during , antepartum (HCC) Anxiety documented in this encounter Results * SONOGRAM - COMPLETE (10/17/2019 11:29 AM CDT) Anatomical Region Laterality Modality Other 10/17/2019 11:2 9 AM CDT Narrative 10/17/2019 3:26 PM CDT ?[facility] ?PHONE: ??FAX: ? Pat. Name: ?ISMAEL PEÑA Pat. No: ?[id number] Study Date: ?? 10/17/2019 ??11:29am , Age: ? 1980, 39 Pregnancies: ?? 1 Height: ? 64 in Weight: ? 260 lb LMP: ?05/20/2019 GA by LMP: ?21w3d GA by US: ? 21w4d ?? HANNAH: 02/23/2020 GA Selected: ??21w3d (LMP) HANNAH: ?02/24/2020 Referring MD: Tammy Spann MD [employer] Planner: ??Maegan Lundberg RDMS CPT4: ? [id number] BMI: ?44.62 Hist/Ind: ? AMA ?Obesity Class 3 ?PCOS MEASUREMENTS & AGE ? GROWTH EVALUATION Measurement ??GA ? Range ? Srce %for GA Ratios ----- ---- ------- BPD ??5.0 cm 21w0d (88d8t-05u0n) Hadl BPD 30% FL/BPD 0.75 HC ??19.3 cm 21w4d (33o2f-70m2w) Hadl HC ??45% FL/AC ??0.20 AC ??18.4 cm 23w2d (15h6m-07u9w) Hadl AC ??91% HC/AC ??1.05 (1.05 - 1.24* FL ?? 3.7 cm 21w6d (32q2o-04t1n) Hadl FL ??55% CI ? 0.71 (0.70 - 0.86) HL ?? 3.0 cm 19w5d (26h8w-49e6n) Seferino HL ??22% Cere 2.2 cm 20w4d (03h5m-30d9s) Hill Cere29% GA for sonogram 21w4d (52i6m-03w6c) ?? Weight Estimate: based on (BPD,HC,AC,FL) Hadlock ?Weight: 503 gm (430-577gm) Hadloc ? : 1lbs, 1oz ? Normal: 431 gm (323-539gm) Hadloc ? Wt% ? 91% for 21w3d Cervix: ??Length: 4.3 cm ??Approach: transvaginal ??Funneling: not present Heart Rate: 143 bpm Amniotic Fluid Index: 04.4cm (Deepest Pocket) EVAL, PLACENTA Presentation: variable Umbilical Cord: 3 Vessels Placenta: posterior Previa: no previa seen Tip to Internal Os: 4.5 cm Heart Rate: 143 bpm Amniotic Fluid Volume: normal Anatomy!Normal!Abnormal!Suboptimal!Prev. Seen!Comments Cranium ?! ?! ?! ? x ?! ?! Mdl (CSP/Thal! ?! ?! ? x ?! ?! Ventricles ?? ! ?! ?! ? x ?! ?! Choroid Plexu! ?! ?! ? x ?! ?! Cerebellum ?? ! ?! ?! ? x ?! ?! Cisterna M. ??! ?! ?! ? x ?! ?! Nuchal Fold ??! ?! ?! ? x ?! ?! Profile ?! ?? x ??! ?! ?! ?! Nasal Bone ?? ! ?! ?! ? x ?! ?! Lip ?! ?? x ??! ?! ?! ?! Spine ?! ?? x ??! ?! ?! ?! Lungs ?! ?? x ??! ?! ?! ?! 4 Chamber Hea! ?? x ??! ?! ?! ?! LVOT ? ! ?? x ??! ?! ?! ?! RVOT ? ! ?? x ??! ?! ?! ?! 3 Vessel View! ?? x ??! ?! ?! ?! Cross-over ?? ! ?? x ??! ?! ?! ?! Ductal Arch ??! ?? x ??! ?! ?! ?! Aortic Arch ??! ?? x ??! ?! ?! ?! Caval View ?? ! ?? x ??! ?! ?! ?! Situs ?! ?? x ??! ?! ?! ?! Diaphragm ?! ?! ?! ? x ?! ?! Stomach ?! ?? x ??! ?! ?! ?! Bowel ?! ?? x ??! ?! ?! ?! Kidneys ?! ?? x ??! ?! ?! ?! Bladder ?! ?? x ??! ?! ?! ?! 3 Vessel Cord! ?? x ??! ?! ?! ?! Cord In! ?! ?! ? x ?! ?! Upper Extremi! ?? x ??! ?! ?! ?! Hands ?! ?? x ??! ?! ?! ?! Lower Extreme! ?! ?! ? x ?! ?! Feet ? ! ?! ?! ? x ?! ?! External Chela! ?! ?! ?! ?!Female Placental Cor! ?? x ??! ?! ?! ?! CLINICAL SUMMARY Study Number: 1 ?? A single fetus is seen in variable presentation. ??The measurements today are consistent with appropriate size for the HANNAH provided. ??The HANNAH is based on LMP and a prior ultrasound. ??The amniotic fluid volume is within normal limits. ??The anatomy was limited by challenging maternal acoustic properties and position. ??No major malformations were seen within the limitations of ultrasound. ??Prior lower extremity DVT following ankle surgery. IMPRESSION: Single, live intrauterine at 21w3d ?? size is within normal limits ?? Amniotic fluid volume: within normal limits ?? Reassuring transvaginal cervical length ?? Risk factors for DVT / VTE including AMA, BMI, Prior DVT RECOMMEND: Ultrasound in 4 weeks for growth and follow up anatomy as per table above. ?? May consider MFM consult regarding ??potential DVT prophylaxis Please be advised that these recommendations are being made in the best interest of our patients during the COVID 19 Pandemic. Thank you for allowing us they opportunity to care for your patient. ?? Pasquale Russ MD <Electronic Signature> ??10/17/2019 03:11pm Ordering Provider Unlisted MD BRITO ORDERA BLES documented in this encounter Visit Diagnoses Diagnosis Supervision of normal first , antepartum (HCC)- Primary Antepartum multigravida of advanced maternal age (HCC) Encounter for ultrasound ([facility]) Encounter for routine screening for malformation using ultrasonics Class 3 severe obesity due to excess calories in adult, unspecified BMI, unspecified whether serious comorbidity present (HCC) Polycystic ovary syndrome Polycystic ovaries Depression during , antepartum (HCC) Anxiety Anxiety state, unspecified Primigravida of advanced maternal age in second trimester (HCC) 21 weeks gestation of (HCC) state, incidental documented in this encounter Care Teams Irish Moss Bleacher Relationship Specialty Start Date End Date Lorelei Davis PA [address] [place] [id number] PCP - General Physician Railroad Crane Operator 10/17/19 documented as of this encounter
--- OUTSIDE RECORDS SUMMARY | 2024-04-06 17:20 | XMS_ITS | Encounter Summary ---
Author Organization [facility] Address [address] [facility] [place] [address] Care Team Providers Care Sanitary Napkin Machine Tender Name Role Phone Lorelei Davis Primary Care Provider [phone] Encounter Details Date Type Department Care Team (Latest Contact Info) Description 01/13/2020 3:59 PM CDT - 01/13/2020 11:59 PM CDT Hospital Encounter [facility] Maternal & Care [address] [place] [address] Aris Hinkle MD [address] [place] [address] Discharge Disposition: Home or Self Care Social [...] as of this encounter Progress Notes * Dodie Suarez - 01/13/2020 4:00 PM CDT Temp taken by:[place] Patient temp:97.9 Respiratory Symptoms: N GI Symptoms: N Fever [...] Associated Diagnosis Comments SONOGRAM - COMPLETE Routine 01/13/2020 4:04 PM CDT Supervision of normal first , antepartum (HCC) Antepartum multigravida of advanced maternal age (HCC) Encounter for ultrasound (HCC) Polycystic ovary syndrome Obesity affecting , antepartum (HCC) Encounter for ultrasound to check growth (HCC) documented in this encounter Results * SONOGRAM - COMPLETE (01/13/2020 4:04 PM CDT) Anatomical Region Laterality Modality Other 01/13/2020 4:04 PM CDT Narrative 01/13/2020 5:09 PM CDT ?[facility] ?PHONE: ??FAX: ? Pat. Name: ?ISMAEL PEÑA Pat. No: ?[id number] Study Date: ?? 01/13/2020 ??4:04pm , Age: ? 1980, 39 Pregnancies: ?? 1 Height: ? 64 in Weight: ? 260 lb LMP: ?05/20/2019 GA by LMP: ?34w0d GA by Base: ?? 34w0d ?? HANNAH: 02/24/2020 GA by US: ? 37w0d ?? HANNAH: 02/03/2020 GA Selected: ??34w0d (From [facility]) HANNAH: ?02/24/2020 Referring MD: Tammy Spann MD Industrial Sales Manager: ??Olena Rojas RDMS, RDCS CPT4: ? 09250 BMI: ?44.62 Hist/Ind: ? AMA ?Obesity Class 3 ?PCOS ?History of DVT after ankle surgery ?Depression MEASUREMENTS & AGE ? GROWTH EVALUATION Measurement ??GA ? Range ? Srce %for GA Ratios ----- ---- ------- BPD ??9.2 cm 37w1d (85y5h-50i9d) Hadl BPD 98% FL/BPD 0.68 (0.71 - 0.87* HC ??33.4 cm 38w1d (12i8v-26j1d) Hadl HC ??96% FL/AC ??0.19 (0.20 - 0.24* AC ??32.9 cm 36w6d (42v3r-03d7g) Hadl AC ??98% HC/AC ??1.01 (0.94 - 1.13) FL ?? 6.3 cm 32w3d (62p5v-73v2p) Hadl FL ??8% CI ? 0.77 (0.70 - 0.86) HL ?? 5.6 cm 32w2d (74w0k-98i1u) Seferino HL ??20% GA for sonogram 37w0d (52l5p-84g3v) ?? Weight Estimate: based on (BPD,AC) Hadlock ?Weight: 2795 gm (2387-3204gm) Had ? : 6lbs, 2oz ? Normal: 2380 gm (1785- 2975gm) Had ? Wt% ? 91% for 34w0d Amniotic Fluid Index: 14.5cm (08.1-24.8) Q1: 5.6cm ??Q2: 2.1cm ??Q3: 2.9cm ??Q4: 4.0cm ?? EVAL, PLACENTA Presentation: cephalic Placenta: posterior Amniotic Fluid Volume: normal CLINICAL SUMMARY Study Number: 4 ?? A single fetus is seen in cephalic presentation. ??The measurements today are consistent with greater than expected size for the HANNAH provided. ??The HANNAH is based on a prior ultrasound. ??The amniotic fluid volume is within normal limits. ?? IMPRESSION: Single, live, intrauterine at 34w0d ?? size is large for gestational age ?? Amniotic fluid volume: within normal limits ?? Examination limited by positioning, maternal body habitus, and advanced gestational age RECOMMEND: Ultrasound in 2 weeks for 8 point BPP. ??Weekly 8 point BPP to start approximately 36 weeks gestation with her morbid obesity. ?? Reassess growth in 3-4 weeks. ??Please schedule the follow up appointments. Thank you for allowing us the opportunity to care for your patient. ?? Aris Hinkle MD <Electronic Signature> ??01/13/2020 05:09pm Robb Botello MD [facility] ORDERABLES documented in this encounter Visit Diagnoses Diagnosis Supervision of normal first , antepartum (HCC) Antepartum multigravida of advanced maternal age ([facility]) Encounter for ultrasound ([facility]) Encounter for routine screening for malformation using ultrasonics Class 3 severe obesity due to excess calories in adult, unspecified BMI, unspecified whether serious comorbidity present (HCC) Polycystic ovary syndrome Polycystic ovaries Anxiety Anxiety state, unspecified Obesity affecting , antepartum (HCC) Encounter for ultrasound to check growth (HCC) documented in this encounter Care Teams Sanitary Napkin Machine Tender Relationship Specialty Start Date End Date Lorelei Davis PA [address] [place] [address] PCP - General Physician Psychiatric Technician 10/17/19 documented as of this encounter
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
--- OUTSIDE RECORDS SUMMARY | 2024-04-06 17:20 | XMS_ITS | Encounter Summary ---
Author Organization [facility] Address [address] [place] [address]. [place] [address] [place] [address] Care Team Providers Care Commercial Real Estate Sales Manager Name Role Phone Lorelei Davis PA-C Primary Care Provider [phone] Encounter Details Date Type Department Care Team (Latest Contact Info) Description 10/25/2022 Travel Social History Tobacco Use Types Packs/Day [...] Assessment Author Status No 02/16/2020 10:36 AM ANALYSIS DIRECTOR Acti ve * RETIRED Are you blind or do you have serious difficulty seeing, even when wearing glasses? Answer Date of Assessment Author Status No 02/16/2020 10:36 AM ANALYSIS DIRECTOR Acti ve * Do you have [...] Assessment Author Status No 02/16/2020 10:36 AM ANALYSIS DIRECTOR Kobi, Kim L, RN Active documented [...] on filedocumented in this encounter Care Teams Commercial Real Estate Sales Manager Relationship Specialty Start Date End Date Lorelei Davis PA-C PCP - General NURSE PRACTITIONER 06/24/19 documented as of this encounter
--- OUTSIDE RECORDS SUMMARY | 2024-04-06 17:20 | XMS_ITS | Patient Health Summary ---
Author Organization [facility] Address [address] [facility] [place] [address] Care Team Providers Care Rope Tier Name Role Phone Lorelei Davis Primary Care Provider Note from [facility],non-owned Affiliates and Associated Physician Practices is amultiple site organization consisting of ambulatory clinics and hospital sitesin [place], [place], [place] and [place]. This disclosure is being madepursuant to the Care Everywhere program and may not contain all information available regarding this patient. Last updated 17.[facility] Allergies * Contrast-Iodinated Agents For Ct/Other(Unknown) * Lavender Oil(Headache) * Vanilla(Headache) Medications * Be aware that medications may not be up to date on this document. Alwaysverify current medications with the patient. * montelukast (SINGULAIR) 10 MG tablet Take 10 mg by mouth at bedtime * Vit-Fe Fumarate-FA ( VITAMIN) 28-0.8 MG tablet Take 1 tablet by mouth once daily * diphenhydrAMINE (BENADRYL) 25 MG capsule Take 25 mg by mouth 2 times daily * sertraline (ZOLOFT) 100 MG tablet Take 200 mg by mouth once daily * aspirin (ASPIRIN) 81 MG chew tablet Take 162 mg by mouth once daily Active Problems Problem Noted Date Diagnosed Date Supervision of normal first , antepartu m 10/15/2019 Antepartum multigravida of advanced maternal age 0710/15/2019 Encounter for ultrasound 10/15/2019 Class 3 severe obesity due to excess calories in adult 10/15/2019 Polycystic ovary syndrome 10/15/2019 Depression 10/15/2019 Anxiety 10/15/2019 Social History Tobacco Use Types Packs/Day Years [...] Comments Blood Pressure 118/70 02/10/2020 3:44 PM WEDDING MAKEUP ARTIST Pulse 113 02/10/2020 3:44 PM WEDDING MAKEUP ARTIST Temperature - - Respiratory Rate 18 01/13/2020 4:40 PM CDT Oxygen Saturation 100% 11/13/2019 3:17 PM CDT Inhaled Oxygen Concentration - - Weight 118.4 kg (261 lb) 12/16/2019 4:42 PM CDT Height - - Body Mass Index - - Procedures * BIOPHYSICAL PROFILE W NST(Performed 02/10/2020) Performed for Supervision of normal first , antepartum ([facility]), Current mild episode of major depressive disorder, unspecified whether recurrent ([facility]), Anxiety, Current mild episode of major depressive disorder without prior episode ([facility]) * BIOPHYSICAL PROFILE W NST(Performed 02/03/2020) Performed for Supervision of normal first , antepartum ([facility]), Current mild episode of major depressive disorder, unspecified whether recurrent ([facility]), Anxiety, Current mild episode of major depressive disorder without prior episode ([facility]) * SONOGRAM - COMPLETE(Performed 01/13/2020) Performed for Supervision of normal first , antepartum ([facility]), Antepartum multigravida of advanced maternal age ([facility]), Encounter for ultrasound ([facility]), Polycystic ovary syndrome, Obesityaffecting , antepartum ([facility]), Encounter for ultrasound to check growth ([facility]) * SONOGRAM - COMPLETE(Performed 12/16/2019) Performed for Supervision of normal first , antepartum ([facility]), Antepartum multigravida of advanced maternal age ([facility]), Polycystic ovary syndrome, Anxiety, Class 3 severe obesity due to excesscalories in adult, unspecified BMI, unspecified whether serious comorbidity present ([facility]) * SONOGRAM - COMPLETE(Performed 11/13/2019) Performed for Supervision of normal first , antepartum (HCC), Antepartum multigravida of advanced maternal age (HCC), Encounter for ultrasound (HCC), Class 3 severe obesity due to excess calories in adult, unspecified BMI, unspecified whether serious comorbidity present (HCC), Polycys tic ovary syndrome, Depression during , antepartum (HCC) * SONOGRAM - COMPLETE(Performed 10/17/2019) Performed for Supervision of normal first , antepartum (HCC), Antepartum multigravida of advanced maternal age (HCC), Encounter for ultrasound (HCC), Class 3 severe obesity due to excess calories in adult, unspecified BMI, unspecified whether serious comorbidity present (HCC), Polycys tic ovary syndrome, Depression during , antepartum (HCC), Anxiety Results * BIOPHYSICAL PROFILE W NST (02/10/2020 4:10 PM WEDDING MAKEUP ARTIST) Only the most recent of2 resultswithin the time period is included. Anatomical Region Laterality Modality Other 02/10/2020 4:10 PM WEDDING MAKEUP ARTIST Narrative 02/10/2020 4:35 PM WEDDING MAKEUP ARTIST ? - [facility] ? [facility] ?PHONE: ??FAX: ? Pat. Name: ?ISMAEL PEAÑ Pat. No: ?[id number] Study Date: ?? 02/10/2020 ??4:10pm , Age: ? 1980, 39 Pregnancies: ?? 1 Height: ? 64 in Weight: ? 260 lb LMP: ?05/20/2019 GA by LMP: ?38w0d GA by Base: ?? 38w0d ?? HANNAH: 02/24/2020 GA Selected: ??38w0d (From [facility]) HANNAH: ?02/24/2020 Referring MD: Tammy Spann MD Materials Planning Analyst: ??Maegan Lundberg RDMS CPT4: ? 05160,87550 BMI: ?44.62 Hist/Ind: ? AMA ?Obesity Class [...] <Electronic Signature> ??02/10/2020 04:33pm Aris Hinkle MD [facility] ORDERABLES * SONOGRAM - COMPLETE (01/13/2020 4:04 PM CDT) Only the most recent of4 resultswithin the time period is included. Anatomical Region Laterality Modality Other 01/13/2020 4:04 PM CDT Narrative 01/13/2020 5:09 PM CDT ?[facility] - [facility] ?PHONE: ??FAX: ? Pat. Name: ?ISMAEL PEÑA. No: ?[id number] Study Date: ?? 01/13/2020 ??4:04pm , Age: ? 1980, 39 Pregnancies: ?? 1 Height: ? 64 in Weight: ? 260 lb LMP: ?05/20/2019 GA by LMP: ?34w0d GA by Base: ?? 34w0d ?? HANNAH: 02/24/2020 GA by US: ? 37w0d ?? HANNAH: 02/03/2020 GA Selected: ??34w0d (From [facility]) HANNAH: ?02/24/2020 Referring MD: Tammy Spann MD Materials Planning Analyst: ??Olena Rojas, FIONA, AALIYAH CPT4: ? 80851 BMI: ?44.62 Hist/Ind: ? AMA ?Obesity Class 3 ?PCOS ?History of DVT after ankle surgery ?Depression MEASUREMENTS & AGE ? GROWTH EVALUATION Measurement ??GA ? Range ? Srce %for GA Ratios ----- ---- ------- BPD ??9.2 cm 37w1d (54r7x-39l6t) Hadl BPD 98% FL/BPD 0.68 (0.71 - 0.87* HC ??33.4 cm 38w1d (82s7q-56u2e) Hadl HC ??96% FL/AC ??0.19 (0.20 - 0.24* AC ??32.9 cm 36w6d (22o5c-97a6b) Hadl AC ??98% HC/AC ??1.01 (0.94 - 1.13) FL ?? 6.3 cm 32w3d (77o4w-00t1i) Hadl FL ??8% CI ? 0.77 (0.70 - 0.86) HL ?? 5.6 cm 32w2d (23d0r-59k4v) Seferino HL ??20% GA for sonogram 37w0d (53d7z-56d2l) ?? Weight Estimate: based on (BPD,AC) Hadlock [...] <Electronic Signature> ??01/13/2020 05:09pm Robb Botello MD [facility] ORDERABLES Care Teams Rope Tier Relationship Specialty Start Date End Date Lorelei Davis PA [address] [place] [id number] PCP - General Physician Regulator Operator 10/17/19
--- OUTSIDE RECORDS SUMMARY | 2024-04-06 17:20 | XMS_ITS | Encounter Summary ---
Author Organization [facility] Address [address] [place] [address]. [place] [address] [place] [address] Care Team Providers Care Filenet Developer Name Role Phone Lorelei Davis PA-C Primary Care Provider [phone]- [phone] Reason for Visit * Reason Comments Back Pain Encounter Details Date Type Department Care Team (Late st Contact Info) Description 06/03/2023 2:08 AM PRIVATE CHEF - 06/03/2023 2:48 AM [facility] Emergency [facility] Emergency Room [address] [place] [address] Sanjay Larsen MD [address] [place] [address] [id number] Back Pain Discharge Disposition: Home or Self Care [...] on file documented as of this encounter Last Filed Vital Signs Vital Sign Reading Time Taken Comments Blood Pressure 134/90 06/03/2023 2:13 AM PRIVATE CHEF Pulse 85 06/03/2023 2:13 AM PRIVATE CHEF Temperature 36.2 ??C (97.2 ??F) 06/03/2023 2:47 AM CS T Respiratory Rate 18 06/03/2023 2:13 AM PRIVATE CHEF Oxygen Saturation 100% 06/03/2023 2:13 AM PRIVATE CHEF Inhaled Oxygen Concentration - - Weight 104.3 kg (230 lb) 06/03/2023 2:13 AM PRIVATE CHEF Height 165.1 cm (5' 5 ) 06/03/2023 2:13 AM PRIVATE CHEF Body Mass Index 38.27 06/03/2023 2:13 AM PRIVATE CHEF documented in this encounter Functional Status * RETIRED Are you deaf or do you have serious difficulty hearing Answer Date of Assessment Author Status No 02/16/2020 10:36 AM PRIVATE CHEF Acti ve * RETIRED Are you blind or do you have serious difficulty seeing, even when wearing glasses? Answer Date of Assessment Author Status No 02/16/2020 10:36 AM PRIVATE CHEF Acti ve * Do you have serious difficulty walking or climbing stairs? Answer Date of Assessment Author Status No 02/16/2020 10:36 AM PRIVATE CHEF Kim Peace RN Active * Do you have difficulty dressing or bathing? Answer Date of Assessment Author Status No 02/16/2020 10:36 AM PRIVATE CHEF Kim Peace RN Active * Because of a physical, mental, or emotional condition, do you have difficulty doing errands alone such as visiting a doctor's office or shopping? Answer Date of Assessment Author Status No 02/16/2020 10:36 AM PRIVATE CHEF Kim Peace RN Active documented as of this encounter Mental Status * Because of a physical, mental, or emotional condition, do you have serious difficulty concentrating, remembering, or making decisions? Answer Entry Date Author Status No 02/16/2020 10:36 AM Kim Pyle RN Active documented in this encounter Discharge Instructions * Discharge Instructions* Sanjay Larsen MD - 06/03/2023 2:26 AM PRIVATE CHEF Continue to take the medications as previously prescribed. You can add the Flexeril as needed. Continue to apply heat for the next 24 hours. Follow-up with your primary care doctor symptoms fail to improve. Return to the ER if you develop worsening symptoms specifically including loss of bowel or bladder control, numbness in the area that you would sit on a saddle, or other neurologic symptoms. ATE CHEF * Attachments The following attachments cannot be sent through Care Everywhere. * Radiculopathy Discharge Instructions (Nigerian) documented in this encounter Medications at Time of Discharge montelukast 10 MG tablet Take 10 mg by mouth. ondansetron (ZOFRAN) 4 MG tablet Take 1 tablet (4 mg total) by mouth every 8 (eight) hours as needed for Nausea. 12 tablet 06/09/2020 sertraline 100 MG tablet Take 200 mg by mouth daily. cyclobenzaprine (FLEXERIL) 10 MG tablet Take 1 tablet (10 mg total) by mouth 3 (three) times daily as needed for Muscle Spasms. 30 tablet 06/03/2023 06/13/2023 documented as of this encounter ED Notes * Sanjay Larsen MD - 06/03/2023 2:27 AM CST Chief Complaint Chief Complaint Patient presents with Back Pain History of Present Illness 43-year-old female with a history of intermittent back pain here with complaints of back pain afterlifting her child above her head at approximately 8 AM this morning. Patient has been taking her home hydrocodone and diclofenac without improvement. She denies saddle paresthesias, change in urinaryhabits, or other concerning symptoms. No abdominal pain. No fevers. She denies falls or other impact. Medical History ALLERGIES: Allergies Allergen Reactions Iodinated Contrast Media Anaphylaxis Lavender Oil Headache Vanilla Headache MEDICATIONS: Prior to Admission medications Medication Sig Start Date End Date Taking? Authorizing Provider cyclobenzaprine (FLEXERIL) 10 MG tablet Take 1 tablet (10 mg total) by mouth 3 (three) times daily as needed for Muscle Spasms. 06/03/23 06/13/23 Yes Sanjay Larsen MD montelukast 10 MG tablet Take 10 mg by mouth. Doc [facility] ondansetron (ZOFRAN) 4 MG tablet Take 1 tablet (4 mg total) by mouth every 8 (eight) hours as needed for Nausea. 06/09/20 Reginaldo Reyes MD sertraline 100 MG tablet Take 200 mg by mouth daily. Doc [facility] PAST MEDICAL HISTORY: Past Medical History: Diagnosis Date Anxiety Asthma controlled-allergy induced Depression PCOS (polycystic ovarian syndrome) Personal history of DVT (deep vein thrombosis) after ankle surgery PAST SURGICAL HISTORY: Past Surgical History: Procedure Laterality Date ANKLE SURGERY SECTION CHOLECYSTECTOMY TONSILLECTOMY UTERINE EXPLORA W/SYR 3MM MOD 1 FAMILY HISTORY: Family History Problem Relation Name Age of Onset Asthma Mother Severe Other (Other) Mother Addisons disease, Chronic fatigue syndrome Heart Father AAlysa Montero SOCIAL HISTORY: Social History Tobacco Use Smoking status: Never Smokeless tobacco: Never Substance Use Topics Alcohol use: Not Currently Drug use: Never Review of Systems Review of Systems Physical Exam Filed Vitals: 06/03/23 0213 BP: (!) 134/90 Pulse: 85 Resp: 18 SpO2: 100% Weight: 104.3 kg (230 lb) Height: 1.651 m (5' 5 ) Physical Exam Vitals reviewed. Constitutional: General: She is not in acute distress. Appearance: Normal appearance. She is not ill-appearing. HENT: Head: Normocephalic and atraumatic. Right Ear: External ear normal. Left Ear: External ear normal. Nose: Nose normal. Eyes: Extraocular Movements: Extraocular movements intact. Cardiovascular: Rate and Rhythm: Normal rate and regular rhythm. Pulses: Normal pulses. Pulmonary: Effort: Pulmonary effort is normal. No respiratory distress. Musculoskeletal: General: No signs of injury. Normal range of motion. Cervical back: Normal range of motion. Comments: Reproducible tenderness upon palpation of the right lumbar paraspinal musculature. No skin rash to raise concern for shingles. There is some erythema from the location of the heating pad that the patient had been sleeping on. No midline tenderness. Skin: General: Skin is warm. Capillary Refill: Capillary refill takes less than 2 seconds. Findings: No lesion. Neurological: General: No focal deficit present. Mental Status: She is alert. Mental status is at baseline. Psychiatric: Mood and Affect: Mood normal. Behavior: Behavior normal. Diagnostic Studies / Procedures ELECTROCARDIOGRAMS: No results found for this visit on 06/03/23. LABORATORY STUDIES: No results found for this visit on 06/03/23. IMAGING STUDIES No orders to display ED Course / Medical Decision Making Medical Decision Making 43-year-old female here with complaints of back pain that radiates into the right flank that began after she lifted her 50 pound toddler above her head. Patient denies symptoms of cauda equina syndrome. Her exam is quite benign aside from some tenderness that reproduces the pain for which she is presenting when palpating the right paraspinal lumbar musculature. Patient has already taken hydrocodone which she has at home. She has been taking diclofenac which she had thought was a muscle relaxer.She does not have any Flexeril at home any longer. Patient typically takes both hydrocodone and Flexeril together when she has back pain in general. As such a take-home dose was provided here as there are no pharmacies open in this region overnight. A prescription was sent. Patient was discharged home in stable condition with instructions to return if symptoms of cauda equina develop. She is instructed to follow-up with her primary care doctor symptoms fail to improve over the next several days. Problems Addressed: Lumbar radiculopathy: acute illness or injury Risk Prescription drug management. Clinical Impression Lumbar radiculopathy (Primary) Disposition: Discharge Sanjay Larsen MD 06/03/23 023 ATE CHEF * Lillie Donovan RN - 06/03/2023 2:10 AM CST Patient presented to ED with c/o right lower back pain that started after lifting her daughter above her head. Patient reports hx of degenerative disc disease and taking prescribed muscle relaxer andhydrocodone with no relief of pain. ATE CHEF documented in this encounter Plan of Treatment Not on file documented as of this encounter Visit Diagnoses Diagnosis Lumbar radiculopathy- Primary Thoracic or lumbosacral neuritis or radiculitis, unspecified documented in this encounter Administered Medications Inactive Administered Medications - up to 3 most recent administrations Medication Order MAR Action Action Date Dose Rate Site cyclobenzaprine (FLEXERIL) tablet 10 mg 10 mg, Oral, Once, 1 dose, On 06/03/23 at 0230, MEDICATION FOR TAKE HOME Given 06/03/2023 2:41 AM PRIVATE CHEF 10 mg documented in this encounter Active and Recently Administered Medications Times are shown in PRIVATE CHEF. Scheduled Medication Order 06/01/2023 06/02/2023 06/03/2023 cyclobenzaprine (FLEXERIL) tablet 10 mg (COMPLETED) 10 mg, Oral, Once, 1 dose, On 06/03/23 at 0230, MEDICATION FOR TAKE HOME 0241 (Given - Provid er: Lillie Donovan RN - Comment: Patient given medication for take home, verbalized understanding.) documented in this encounter Care Teams Filenet Developer Relationship Specialty Start Date End Date Lorelei Davis PA-C PCP - General NURSE PRACTITIONER 06/24/19 documented as of this encounter
--- OUTSIDE RECORDS SUMMARY | 2024-04-06 17:20 | XMS_ITS | Encounter Summary ---
Author Organization [facility] Address [address] [place] [address]. [place] [address] [place] [address] Care Team Providers Care Dope Sprayer Name Role Phone Lorelei Davis PA-C Primary Care Provider [phone]- [phone] Reason for Visit * Reason Comments Laceration Head Injury Encounter Details Date Type Department Care Team (Late st Contact Info) Description 07/23/2021 8:17 PM CDT - 07/23/2021 9:55 PM CDT Emergency [facility] Emergency Room [address] [place] [address] Kaiden Wolf MD,PHD [address] [place] [address] Laceration; Head Injury Discharge Disposition: Home or Self Care (Routine [...] Sign Reading Time Taken Comments Blood Pressure 128/88 07/23/2021 8:28 PM CDT Pulse 97 07/23/2021 8:28 PM CDT Temperature 36.8 ??C (98.3 ??F) 07/23/2021 8:28 PM CD T Respiratory Rate 18 07/23/2021 8:28 PM CDT Oxygen Saturation 97% 07/23/2021 8:28 PM CDT Inhaled Oxygen Concentration - - Weight 104.3 kg (230 lb) 07/23/2021 8:28 PM CDT Height 165.1 cm (5' 5 ) 07/23/2021 8:28 PM CDT Body Mass Index 38.27 07/23/2021 8:28 PM CDT documented in this encounter Functional Status * RETIRED Are you deaf or do you have serious difficulty hearing Answer Date of Assessment Author Status No 02/16/2020 10:36 AM GUITAR INSTRUCTOR Acti ve * RETIRED Are you blind or do you have serious difficulty seeing, even when wearing glasses? Answer Date of Assessment Author Status No 02/16/2020 10:36 AM GUITAR INSTRUCTOR Acti ve * Do you have serious [...] cannot be sent through Care Everywhere. * Laceration Repair With Stitches Discharge Instructions (Mauritanian) documented in this encounter Medications at Time [...] 06/09/2020 06/03/2023 documented as of this encounter ED Notes * Kaiden Wolf MD,PHD - 07/23/2021 9:29 PM CDT EMERGENCY DEPARTMENT ENCOUNTER Chief Complaint Chief Complaint Patient presents with ??? Laceration ??? Head Injury History of Present Illness Provider at Bedside Date/Time Event User Comments 07/23/212017 Provider at Bedside Assessing Patient LORE KAIDEN Greene 41-year-old female presenting to the emergency department with a left eyebrow laceration. Patient struck her eyebrow while unloading a truck. The total fall distance was approximately 4 feet. She denies loss of consciousness. She denies headache. She complains of left ankle pain, but states this ischronic and only slightly worse than her baseline. The onset was sudden. The duration is a few hours. The course of constant. It is located in the left eyebrow. Medical History ALLERGIES: Allergies Allergen Reactions ??? Iodinated Diagnostic Agents Anaphylaxis ??? Lavender Oil Headache ??? Vanilla Headache MEDICATIONS: Prior to Admission medications Medication Sig Start Date End Date Taking? Authorizing Provider cyclobenzaprine 10 MG tablet Take 1 tablet (10 mg total) by mouth 3 (three) times daily as needed for Muscle Spasms. 06/09/20 Reginaldo Reyes MD montelukast 10 MG tablet Take 10 mg by mouth. Doc Abstract ondansetron (ZOFRAN) 4 MG tablet Take 1 tablet (4 mg total) by mouth every 8 (eight) hours as needed for Nausea. 06/09/20 Reginaldo Reyes MD sertraline 100 MG tablet Take 200 mg by mouth daily. Doc Abstract PAST MEDICAL HISTORY: Past Medical [...] ??? Drug use: Never Review of Systems Constitutional: Negative for chills and fever. Respiratory: Negative for cough and shortness of breath. Cardiovascular: Negative for chest pain, Negative for leg swelling Gastrointestinal: Negative for abdominal pain, Negative for nausea or vomiting Neurological: Negative for paraesthesias, negative for focal weakness, negative for headache Musculoskeletal: Negative for back pain, see HPI Integumentary: See HPI All other systems reviewed and are negative except as in HPI and as noted above Physical Exam Filed Vitals: 07/23/212027 BP: 128/88 Pulse: 97 Resp: 18 Temp: 98.3 ??F (36.8 ??C) TempSrc: Skin SpO2: 97% Weight: 104.3 kg (230 lb) Height: 5' 5 (1.651 m) GENERAL: No acute distress, alert and oriented x 4 EYE: No raccoon eyes, PERRLA, EOMI ENT: Normocephalic , non hemotympanum, normal nasal and pharyngeal exam, 1.5 cm laceration of the left eyebrow NECK: No cervical spine spine tenderness to palpation, neck supple CARDIOVASCULAR: RRR, normal S1-S2, no clicks murmurs rubs or gallops are appreciated RESPIRATORY: No respiratory distress or tachypnea, clear to and equal to auscultation bilaterally CHEST: No crepitus, no chest wall tenderness to palpation ABDOMEN: Soft, non-tender BACK: No lumbar, thoracic spinal tenderness to palpation NEUROLOGICAL: Alert and oriented x4, motor and sensation grossly intact bilaterally MUSCULOSKELETAL: Painful range of motion of the right ankle, patient states this is chronic. No tenderness or deformities to palpation of the major joints or long bones, good strength and tone, joints free from effusion, normal non- painful range of motion of the major joints VASCULAR: 2+ radial and DP pulses, normal fine touch sensation and capillary refill distally ED Course / Medical Decision Making Patient presenting with a chief complaint of a left eyebrow laceration PROCEDURE NOTE: PROCEDURE: Laceration Repair DIAGNOSIS: Fibroma laceration INDICATION: Proper wound healing with good cosmetic outcome Sterile Technique Observed: Gloves Anesthesia: Wound was injected with 1% lidocaine The wound was explored, irrigated, and debrided. Laceration was repaired in single layer using absorbable suture The total length was 1.5 cm The procedure was successful and uncomplicated The repair was simple I interpreted the patient's pulse oximeter at rest, which is 97% on room air, which is normal and determined that this patient is not hypoxic The patient is declined to have her ankle x-ray. Patient had no indication for emergent neuroimaging (no loss of consciousness, GCS 15, no severe injury mechanism, no severe headache, no intoxication) The patient was thus deemed stable for discharge from emergency department. Medications lidocaine-EPINEPHrine 1 %-1:076433 injection 10 mL (has no administration in time range) Clinical Impression Eyebrow laceration (Primary) Disposition: Discharge home Patient provided with printed and verbal discharge care instructions and was instructed to return to the emergency department immediately with worsening symptoms or new worrisome symptoms. Patient was instructed to follow-up with primary care physician within 1 week for further evaluation and treatment. Diagnoses & treatment discussed with patient Patient expressed understanding and agreed. Kaiden Wolf MD,PHD 07/24/21 0641 * Tamela Jackson RN - 07/23/2021 8:32 PM CDT Patient presents with a head laceration after falling while on the phone. It is on her left eyebrow. documented in this encounter Plan of Treatment Not on file documented as of this encounter Visit Diagnoses Diagnosis Eyebrow laceration- Primary Open wound of forehead, without mention of complication documented in this encounter Administered Medications Inactive Administered Medications - up to 3 most recent administrations Medication Order MAR Action Action Date Dose Rate Site lidocaine-EPINEPHrine 1 %-1:238144 injection 10 mL 10 mL, Intradermal, Once, 1 dose, On 07/23/21 at 2030 Given by Other 07/23/2021 9:39 PM CDT 10 mLs Face documented in this encounter Active and Recently Administered Medications Times are shown in CDT. Scheduled Medication Order 07/21/2021 07/22/2021 07/23/2021 lidocaine-EPINEPHrine 1 %-1:012031 injection 10 mL (COMPLETED) 10 mL, Intradermal, Once, 1 dose, On 07/23/21 at 2029 2138 (Given by Other - Provider: Tamela Jackson RN) documented in this encounter Care Teams Dope Sprayer Relationship Specialty Start Date End Date Lorelei Davis PA-C PCP - General NURSE PRACTITIONER 06/24/19 documented as of this encounter
--- OUTSIDE RECORDS SUMMARY | 2024-04-06 17:20 | XMS_ITS | Referral Summary ---
Author Organization [facility] [employer] Address [address] [place] [address] Care Team Providers Care Insurance Territory Manager Name Role Phone Lorelei Davis Primary Care Provider [phone] Source Comments [facility] [employer],non-owned Affiliates and Associated Physician Practices is amultiple site organization consisting of ambulatory clinics and hospital sitesin [place], [place] and [place]. This disclosure is being madepursuant to the Care Everywhere program and may not contain all information available regarding this patient. Last updated 17.[facility] [employer] Allergies Active Allergy Reactions Criticality Noted [...] Comments Blood Pressure 118/70 02/10/2020 3:44 PM TOOTH CUTTER Pulse 113 02/10/2020 3:44 PM TOOTH CUTTER Temperature - - Respiratory Rate 18 01/13/2020 4:40 PM CDT Oxygen Saturation 100% 11/13/2019 3:17 PM CDT Inhaled Oxygen Concentration - - Weight 118.4 kg (261 lb) 12/16/2019 4:42 PM CDT Height - - Body Mass Index - - Plan of Treatment Not on file Care Teams Insurance Territory Manager Relationship Specialty Start Date End Date Lorelei Davis PA [address] [place] [id number] PCP - General Physician Non Categorical Preschool Teacher 10/17/19
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
--- OUTSIDE RECORDS SUMMARY | 2024-04-06 17:20 | XMS_ITS | Encounter Summary ---
Author Organization [facility] Address [address] [facility] [facility] [place] [address] Care Team Providers Care Director Supply Name Role Phone Lorelei Davis Primary Care Provider [phone] Reason for Visit * Reason Onset Date Comments Ultrasound 02/11/2020 Encounter Details Date Type Department Care Team (Late st Contact Info) Description 02/11/[address] [facility] Women's Health Maternal & Care [address] [place] [address] Reema Stein RN Ultrasound Social History Tobacco Use Types Packs/Day Years [...] encounter Miscellaneous Notes * Telephone Encounter - Reema Stein RN - 02/11/2020 1:25 PM CST Call received from Minerva at [facility] and she is wanting the ultrasound report from the visit on 02/09. The pt called their office and stated she did not feel good and also reported that her fluid level drastically changed . Informed Minerva that ultrasound report is being faxed and the pt stated that she went to the hospital for rule out SROM over the weekend. Minerva will inform the physicians. LINER documented in this encounter Plan of Treatment [...] , antepartum (HCC) Anxiety Anxiety state, unspecified documented in this encounter Care Teams Director Supply Relationship Specialty Start Date End Date Lorelei Davis PA [address] [place] [id number] PCP - General Physician Guest Relations Manager 10/17/19 documented as of this encounter
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
--- OUTSIDE RECORDS SUMMARY | 2024-04-06 17:21 | XMS_ITS | Encounter Summary ---
Author Organization [facility] Address [address] [place] [address]. [place] [address] [place] [address] Care Team Providers Care Senior Java J2Ee Developer Name Role Phone Unavailable Primary Care Provider Unavailabl e Encounter Details Date Type Department Care Team (Late st Contact Info) Description 04/15/2017 Abstract [facility] [address] [place] [address] Sandy Harper FNP Social History Tobacco Use Types Packs/Day Years Used Date Smoking Tobacco: Never Assessed Comments Unknown Sex and Gender Information Value Date Recorded Sex Assigned at Not on file Legal Sex Female 7:58 PM CDT Gender Identity Not on file Sexual Orientation Not on file documented as of this encounter Plan of Treatment Not on file documented as of this encounter Procedures Procedure Name Priority Date/Time Associated Diagnosis Comments INFLUENZA A & B STAT 04/15/2017 1:29 PM LEARNING DISABLED TEACHER documented in this encounter Results * INFLUENZA A & B (04/15/2017 1:29 PM LEARNING DISABLED TEACHER) SPECIMEN TYPE NASAL 04/15/2017 1:35 PM LEARNING DISABLED TEACHER [facility] INFLUENZA A NEGATIVE NEGATIVE 04/15/2017 1:55 PM LEARNING DISABLED TEACHER [facility] INFLUENZA B NEGATIVE NEGATIVE 04/15/2017 1:55 PM LEARNING DISABLED TEACHER [facility] 04/15/2017 1:29 PM LEARNING DISABLED TEACHER 04/15/2017 1:35 PM LEARNING DISABLED TEACHER us Generic Conversion Md [facility]BI[facility] - GENERAL ORDERABLES Final Result [facility] [address] [place] [address], documented in this encounter Visit Diagnoses Diagnosis Acute sinusitis Acute sinusitis, unspecified documented in this encounter
--- OUTSIDE RECORDS SUMMARY | 2024-04-06 17:21 | XMS_ITS | Encounter Summary ---
Author Organization [facility] Address [address] [place] [address]. [place] [address] [place] [address] Care Team Providers Care Dry Plasterer Name Role Phone Lorelei Davis PA-C Primary Care Provider +1- [phone] Reason for Visit * Auth/Cert Specialty Diagnoses / Procedures Referred By Contbessie t Referred To Contact Diagnoses Procedures C/S Referral ID Status Reason Start Date Expiration Date Visits Re quested Visits Authorized [id number] 1 1 Encounter Details Date Type Department Care Team (Late st Contact Info) Description 02/17/2020 3:37 PM SUBSTATION MAINTENANCE TECHNICIAN Anesthesia Event [facility] Labor & Delivery [address] [place] [address] Bianca Pedroza CRNA [address] [place] [address] -[phone] (Work) Kleber Robert CRNA [address] [place] [address] Anesthesia Record Procedure Summary Procedure Name Responsible Anesthesiologist Anesthesia Start Time Anesthesia Stop Time SECTION (Abdomen) Bianca Pedroza CRNA 02/17/20 1537 02/17/20 1647 Events Date Time Event Comment 02/17/2020 0008 Floor Procedure 0010 0019 Epidural Start 0024 An Epidural Placement Comple te 1511 AN TRANSFERRER Prepped 1537 An Start Patient ID and consent checked and patient reassessed. 1537 Epidural to 1537 An Start Data 1538 Quick Note Ancef 2 grams s tarted in L&D room. 1539 An Data Art Moving patient OR bed. NIBP repeat: 104/49(65). 1541 Nasal Cannula Applied 1543 Anesthesia Ready 1551 An Data Art Patient pina galvan. NIBP rechecked: 124/84(97). 1603 Uterine Incision 1603 Baby Delivered 1630 Quick Note Epidural. Aspir ation negative. Demerol drip started at 10mL/hr. 1642 Nasal Cannula Removed 1647 an stop data 1647 Post Anesthetic Care Handoff I completed my handoff to the receiving nurse during which we: 1. Identified the patient 2. Identified the responsible provider 3. Reviewed the pertinent medical history 4. Discussed the surgical course 5. Reviewed intra-op anesthesia management and issues during anesthesia 6. Set expectations for post-procedure period 7. Allowed opportunity for questions and acknowledgement of understanding. 164 An Stop Meds Name Total lidocaine 1.5%-EPINEPHrine 1:200,000 inj ection 3 mL lidocaine (PF) 1% injection 30 mg BUpivacaine 0.25% (PF) injection 9 mL lidocaine 2%-EPINEPHrine 1:200,000 injec tion 20 mL sodium bicarbonate 1 mEq/mL injection 0. 2 mEq dexamethasone (DECADRON) 4mg/mL injectio n 4 mg fentaNYL (SUBLIMAZE) 100 mcg/2 mL inject ion 100 mcg ondansetron (ZOFRAN) injection 4 mg 4 mg ketorolac (TORADOL) 30 mg/mL injection 3 0 mg oxytocin (PITOCIN) injection 20 Units phenylephrine (MIGUELITO-SYNEPHRINE) injection 100 mcg 1,300 mcg oxytocin (PITOCIN) 30 units in NS 500 mL infusion 39.58 mL famotidine (PEPCID) 10 mg/mL injection 2 0 mg lactated ringers infusion 1,000 mL * Agents Name O2 N2O Air Ancillary O2 * Blood No blood administrations on file. Lines, Drains, and Airways Type Details Placement Removal Peripheral IV Placement Date: 12/27; Placement Time: 1115; Size: 20 G; Orientation: Right; Location: Hand; Site Prep: Chlorhexidine; Local Anesthetic: Injectable; Inserted By: two attempts by two other RN. I attempted twice first time to right hand and swollen with flush; Insertion attempts: 4; Patient Tolerance: Tolerated well (patient anxious with IV start); Removal Date: 02/19/20; Removal Time: 73202/16/20 1115 by Elise Ugalde RN 02/19/20 0733 by Namrata Fernando RN Epidural Placement Date: 02/07 ; Placement Time: 23; Inserted By: Yousuf Robert; Placement Location: Lumbar; MRI Compatible: MRI SAFE; Removal Date: 02/18/20; Removal Time: 1245 02/17/20 0024 by Kleber Robert, TRANSFERRER 02/18/20 1245 by Ita Khalil RN Jack Catheter 02/17/20; 0130; No; Immobilization - Due to unstable fracture; 2; Hand hygiene performed, Site cleansed with sterile antiseptic, Sterile gloves, drape and lubricant used, Catheter inserted using aseptic technique, Jack care post catheter insertion, Anchoring device applied, Drainage bag secured below level of bladder, Closed system maintained; Stat lock; Straight-tip; 14 Fr.; Per Protocol 02/17/20 0130 by Quincy Walsh RN 02/18/20 1145 by Ita Khalil RN Surgical/Incision 02/17/20; 1643; Surg ical Wound; Abdomen; Sutures, Steri-strips, Prevena ; 02/19/20; 1609 02/17/20 1643 by Corine Escalona RN 02/19/20 1609 by Automatic Discharge Provider documented in this encounter Social History Tobacco Use Types Packs/Day Years [...] have Coronavirus / COVID-19? No / Unsure 02/08/2020 7:36 PM SUBSTATION MAINTENANCE TECHNICIAN documented as of this encounter Functional Status * RETIRED Are you deaf or do you have serious difficulty hearing Answer Date of Assessment Author Status No 02/16/2020 10:36 AM SUBSTATION MAINTENANCE TECHNICIAN Acti ve * RETIRED Are you blind or do you have serious difficulty seeing, even when wearing glasses? Answer Date of Assessment Author Status No 02/16/2020 10:36 AM SUBSTATION MAINTENANCE TECHNICIAN Acti ve * Do you have serious [...] Pyle RN Active documented in this encounter OR Notes * Anesthesia Postprocedure Evaluation - Cuauhtemoc Leon CRNA - 02/18/2020 9:47 AM CST Anesthesia Post-op Note Kirstin London Procedure(s): SECTION (N/A Abdomen) Anesthesia type: epidural Vitals: 02/18/20 0700 BP: 111/69 Vitals: 02/18/20 0700 Pulse: 70 Vitals: 02/18/20 0700 Resp: 20 Vitals: 02/18/20 0700 Temp: 36.6 ??C Vitals: 02/18/20 0700 SpO2: 97% Patient Location: Labor & Delivery Level of Consciousness: awake Pain Management: adequate analgesia Airway Patency: patent Respiratory Status: acceptable Cardiovascular Status: acceptable Post-Op Nausea: none Postoperative Hydration: euvolemic Complications: no anesthesia complication TATION MAINTENANCE TECHNICIAN * Anesthesia Postprocedure Evaluation - Bianca Pedroza CRNA - 02/17/2020 5:40 PM CST Anesthesia Post-op Note Kirstin London Procedure(s): SECTION (N/A Abdomen) Anesthesia type: epidural Vitals: 02/17/20 1724 BP: 98/57 Vitals: 02/17/20 1724 Pulse: 88 Vitals: 02/17/20 1409 Resp: 18 Vitals: 02/17/20 1312 Temp: 36.7 ??C Vitals: 02/17/20 0009 SpO2: 93% Patient Location: Labor & Delivery Level of Consciousness: awake, alert and oriented Pain Management: adequate analgesia (Epidural demerol running.) Airway Patency: patent Respiratory Status: acceptable and room air Cardiovascular Status: acceptable and stable Post-Op Nausea: none Postoperative Hydration: euvolemic Complications: no anesthesia complication Comments: Blood pressure 98/57, pulse 88, temperature 36.7 ??C, resp. rate 18, height 5' 5 (1.651 m), weight 118.4 kg (261 lb), last menstrual period 05/20/2019, SpO2 93%. TATION MAINTENANCE TECHNICIAN * Anesthesia Procedure Notes - Kleber Robert CRNA - 02/17/2020 12:42 AM SUBSTATION MAINTENANCE TECHNICIAN Associated Order(s): Labor Epidural Epidural: Date/Time: 02/17/2020 12:24 AM Patient location during procedure: OB Reason for block: labor epidural Preanesthetic Checklist Completed: patient identified, site marked, consent, pre-op evaluation, timeout performed, IV checked, risks and benefits discussed and monitors and equipment checked Procedure Information: Patient position: sitting Prep: chlorhexidine Patient monitoring: non-invasive blood pressure, heart rate and continuous pulse oximetry Approach: midline Location: L4-L5 Injection technique: MELISSA saline Placement Location: lumbar Ultrasound-guided Placement: No Needle and Catheter: MRI Compatible: MRI SAFE Needle type: Tuohy Needle gauge: 18 G Needle length: 3.5 in Needle insertion depth: 6 cm Catheter type: side hole Catheter size: 20 G Catheter at skin depth: 12 cm Test dose: negative and lidocaine 1.5% with epinephrine 1-to-200,000 Needle attempts: 1 TATION MAINTENANCE TECHNICIAN * Anesthesia Preprocedure Evaluation - Kleber Robert CRNA - 02/17/2020 12:08 AM CST Anesthesia ROS/MED History Reviewed: Patient summary , Nursing notes , ECG, Family history anesthesia, Anesthesia history , Medications , Labs , Images/Studies Pre-Anesthetic State: alert, awake and responds appropriately Pulmonary (+) asthma ROS comment: Allergy induced asthma Cardiovascular neg cardio ROS Exercise tolerance:good Neuro/Psych (+) depression GI/Hepatic/Renal neg GI/hepatic/renal ROS Endo/Other (+) obese, blood dyscrasia Comments: Pt on daily baby aspirin for history of DVT. 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 Complains of pain in lower extremities at times. No paraesthesias noted currently. Physical Evaluation Airway Mallampati: I Neck ROM: normal Dental No notable dental history Pulmonary Pulmonary exam normal Breath sounds clear to auscultation Cardiovascular Rhythm: regular Rate: normal Cardiovascular exam normal Anesthesia Plan ASA 2 Induction Anesthesia type: epidural Informed Consent Anesthetic plan and risks discussed with patient of whom consent was obtained. Use of blood products discussed with patient of whom consent was obtained. . TATION MAINTENANCE TECHNICIAN documented in this encounter Plan of Treatment Not on file documented as of this encounter Procedures Procedure Name Priority Date/Time Associated Diagnosis Comments LABOR EPIDURAL Routine 02/17/2020 12:42 AM SUBSTATION MAINTENANCE TECHNICIAN documented in this encounter Results * LABOR EPIDURAL (02/17/2020 12:42 AM SUBSTATION MAINTENANCE TECHNICIAN) Narrative Kleber Robert CRNA - 02/17/2020 12:42 AM SUBSTATION MAINTENANCE TECHNICIAN Kleber Robert CRNA ? 02/17/2020 12:42 AM Epidural: Date/Time: ??02/17/2020 12:24 AM Patient location during procedure: OB Reason for block: labor epidural Preanesthetic Checklist Completed: patient identified, site marked, consent, pre-op evaluation, timeout performed, IV checked, risks and benefits discussed and monitors and equipment checked Procedure Information: Patient position: sitting Prep: chlorhexidine Patient monitoring: non-invasive blood pressure, heart rate and continuous pulse oximetry Approach: midline Location: L4-L5 Injection technique: MELISSA saline Placement Location: ??lumbar Ultrasound-guided Placement: ??No Needle and Catheter: MRI Compatible: MRI SAFE Needle type: Tuohy Needle gauge: 18 G Needle length: 3.5 in Needle insertion depth: 6 cm Catheter type: side hole Catheter size: 20 G Catheter at skin depth: 12 cm Test dose: negative and lidocaine 1.5% with epinephrine 1-to-200,000 Needle attempts: ??1 us Kleber Robert TRANSFERRER GA ANESTHESIA Final Resul t documented in this encounter Visit Diagnoses Not on filedocumented in this encounter Administered Medications Inactive Administered Medications - up to 3 most recent administrations Medication Order MAR Action Action Date Dose Rate Site BUpivacaine (MARCAINE) 0.25 % injection Epidural, PRN, Starting on Sun02/17/20 at 0029, Until Sun02/17/20 at 1647, Anesthesia Intra-Op Given 02/17/2020 12:35 AM SUBSTATION MAINTENANCE TECHNICIAN 4 mLs Given 02/17/2020 12:29 AM SUBSTATION MAINTENANCE TECHNICIAN 5 mLs dexamethasone (DECADRON) injection PRN, Starting on Sun02/17/20 at 1537, Until Sun02/17/20 at 1647, Anesthesia Intra-Op Given 02/17/2020 3:37 PM SUBSTATION MAINTENANCE TECHNICIAN 4 mg famotidine (PEPCID) injection PRN, Starting on Sun02/17/20 at 1537, Until Sun02/17/20 at 1803, Anesthesia Intra-Op Given 02/17/2020 3:37 PM SUBSTATION MAINTENANCE TECHNICIAN 20 mg fentaNYL (SUBLIMAZE) injection PRN, Starting on Sun02/17/20 at 1537, Until Sun02/17/20 at 1647, Anesthesia Intra-Op Given 02/17/2020 3:37 PM SUBSTATION MAINTENANCE TECHNICIAN 100 mcg ketorolac (TORADOL) injection PRN, Starting on Sun02/17/20 at 1630, Until Sun02/17/20 at 1647, Anesthesia Intra-Op Given 02/17/2020 4:30 PM SUBSTATION MAINTENANCE TECHNICIAN 30 mg lactated ringers infusion at 125 mL/hr, Intravenous, Continuous, Starting on 02/16/20 at 1000, Until Rehana 02/19/20 at 1609, For all patients in active labor with non-vertex presentation, multiple gestation, previous , persistent non-reassuring FHR, Hx post- hemorrhage, active phase longer than 8 hrs and/or patient desires an epidural. New Bag 02/17/2020 3:30 PM SUBSTATION MAINTENANCE TECHNICIAN New Bag 02/17/2020 10:45 AM SUBSTATION MAINTENANCE TECHNICIAN 500 mL/hr New Bag 02/17/2020 6:33 AM SUBSTATION MAINTENANCE TECHNICIAN 125 mL/hr lidocaine (PF) (XYLOCAINE) 1 % injection Infiltration, PRN, Starting on Sun02/17/20 at 0019, Until Sun02/17/20 at 1647, Anesthesia Intra-Op Given 02/17/2020 12:19 AM SUBSTATION MAINTENANCE TECHNICIAN 30 mg lidocaine-EPINEPHrine 1.5 %-1:[id number] injection Epidural, PRN, Starting on Sun02/17/20 at 0025, Until Sun02/17/20 at 1647, Anesthesia Intra-Op Given 02/17/2020 12:25 AM SUBSTATION MAINTENANCE TECHNICIAN 3 mLs lidocaine-EPINEPHrine 2 %-1:[id number] injection PRN, Starting on Sun02/17/20 at 1537, Until Sun02/17/20 at 1647, Anesthesia Intra-Op Given 02/17/2020 3:41 PM SUBSTATION MAINTENANCE TECHNICIAN 10 mLs Given 02/17/2020 3:37 PM SUBSTATION MAINTENANCE TECHNICIAN 10 mLs ondansetron (ZOFRAN) injection 4 mg 4 mg, Intravenous, Every 8 hours PRN, Nausea, Vomiting, Starting on 02/16/20 at 0938, Until Rehana 02/19/20 at 1609, If unable to take PO. Given 02/17/2020 4:04 PM SUBSTATION MAINTENANCE TECHNICIAN 4 mg oxytocin (PITOCIN) 30 units in NS 500 mL infusion 0-300 mL/hr, Intravenous, Continuous, Starting on Sun02/17/20 at 1530, Until Sun02/18/20 at 1133, Initial rate at 300 ml/hr for the 1st hour, then decrease to 60 mL/hr for the 2nd hour. Continue this rate until the fundus is firm or the patient has completed her recovery phase. HAZARDOUS MEDICATION, Pre-Op New Bag 02/17/2020 4:28 PM SUBSTATION MAINTENANCE TECHNICIAN 125 mL/hr 12 5 mL/hr oxytocin (PITOCIN) injection PRN, Starting on Sun02/17/20 at 1605, Until Sun02/17/20 at 1647, Anesthesia Intra-Op Given 02/17/2020 4:05 PM SUBSTATION MAINTENANCE TECHNICIAN 20 Units phenylephrine (MIGUELITO-SYNEPHRINE) injection 100 mcg 100 mcg, Intravenous, Once as needed, Hypotension with SBP less than 100 and symptomatic, 1 dose, Starting on Sun02/17/20 at 0009, Until Sun02/17/20 at 1606 Given 02/17/2020 4:06 PM SUBSTATION MAINTENANCE TECHNICIAN 200 mcg Given 02/17/2020 4:00 PM SUBSTATION MAINTENANCE TECHNICIAN 200 mcg Given 02/17/2020 3:57 PM SUBSTATION MAINTENANCE TECHNICIAN 200 mcg sodium bicarbonate 8.4 % injection PRN, Starting on Sun02/17/20 at 1537, Until Sun02/17/20 at 1647, Anesthesia Intra-Op Given 02/17/2020 3:37 PM SUBSTATION MAINTENANCE TECHNICIAN 0. 2 mEq documented in this encounter Care Teams Dry Plasterer Relationship Specialty Start Date End Date Lorelei Davis PA-C PCP - General NURSE PRACTITIONER 06/24/19 documented as of this encounter
--- OUTSIDE RECORDS SUMMARY | 2024-04-06 17:21 | XMS_ITS | Encounter Summary ---
Author Organization [facility] Address [address] [place] [address]. [place] [address] [place] [address] Care Team Providers Care Russian Rubber Name Role Phone Lorelei Davis PA-C Primary Care Provider +1- [phone] Encounter Details Date Type Department Care Team (Late st Contact Info) Description 07/02/2019 Orders Only [facility] [address] [place], [place] [id number] Lorelei Davis PA-C [address] [place], [place] [id number] Social History Tobacco Use Types Packs/Day Years [...] have Coronavirus / COVID-19? No / Unsure 07/04/2019 11:50 AM CDT documented as of this encounter Plan of Treatment Not on file documented as of this encounter Results * (ABNORMAL) HCG QUANT (SERUM)-CHORIONIC GONADOTROPIN (07/02/2019 10:10 AM CDT) Pathologist [facility] HCG QUANTITATIVE 22,490(H) 0 - 6 MIU/ML 07/02/2019 11:08 AM CDT [facility] Comment: WEEKS OF ? REFERENCE RANGES NON- FEMALE ?0-6 ? 0.2 - 1 ? 5 - 50 ? 1 - 2 ? 50 - 500 ? 2 - 3 ? 100 - 5000 ? 3 - 4 ? 500 - 10,000 ? 4 - 5 ? 1000 - 50,000 ? 5 - 6 ? 10,000 - 100,000 ? 6 - 8 ? 15,000 - 200,000 ? 2 - 3 MONTHS ?10,000 - 100,000 07/02/2019 10:1 0 AM CDT us Lorelei Davis PA-C LABORATORY Final Resu lt Performing Organization Address City/State/[facility] Co de Phone Number [facility] [address] [place] [address], documented in this encounter Visit Diagnoses Diagnosis (HHS/HCC)- Primary state, incidental Abdominal tenderness, unspecified site documented in this encounter Care Teams Russian Rubber Relationship Specialty Start Date End Date Lorelei Davis PA-C PCP - General NURSE PRACTITIONER 06/24/19 documented as of this encounter
--- OUTSIDE RECORDS SUMMARY | 2024-04-06 17:21 | XMS_ITS | Encounter Summary ---
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 dilatation Post-Op Diagnosis: Same Findings: Live female Estimated Blood Loss: 600 Specimens: None MELVIN GANDHI MD Date: 02/17/2020 Time: 5:18 PM ORT MANAGER documented in this encounter Plan of Treatment Not on file documented as of this encounter Procedures Procedure Name Priority Date/Time Associated Diagnosis Comments CBC, AUTO, NO DIFF Routine 02/18/2020 6: 50 AM SUPPORT MANAGER PATHOLOGY Routine 02/17/2020 4:03 PM SUPPORT MANAGER SECTION 02/17/2020 3:32 PM SUPPORT MANAGER Failure to descend, arrest of dilatation TYPE & SCREEN STAT 02/16/2020 11:15 AM SUPPORT MANAGER CBC, AUTO, NO DIFF Routine 02/16/2020 11 :15 AM SUPPORT MANAGER DRUG SCREEN RAPID Routine 02/16/2020 9:0 0 AM SUPPORT MANAGER GROUP B STREP MOLECULAR Routine 01/31/2020 OBSTETRIC PANEL, 28 WEEK Routine 11/07/2019 OBSTETRIC PANEL, 28 WEEK Routine 08/01/2019 TYPE & SCREEN Routine 08/01/2019 OBSTETRIC PANEL Routine 08/01/2019 documented in this encounter Results * (ABNORMAL) CBC, AUTO, NO DIFF (02/18/2020 6:50 AM SUPPORT MANAGER) WBC 12.7(H) 4.8 - 10.8 x10'3/uL 02/18/2020 7:39 AM SUPPORT MANAGER [facility] RBC 3.67(L) 4.10 - 5.10 x10'6/uL 02/18/2020 7:39 AM SUPPORT MANAGER [facility] HGB 10.3(L) 12.0 - 16.0 G/DL 02/18/2020 7:39 AM SUPPORT MANAGER [facility] HCT 31.0(L) 36 - 46 % 02/18/2020 7:39 AM SUPPORT MANAGER [facility] MCV 84.5 80 - 100 FL 02/18/2020 7:39 AM SUPPORT MANAGER [facility] MCH 28.1 26.0 - 34.0 PG 02/18/2020 7:39 AM SUPPORT MANAGER [facility] MCHC 33.2 31.0 - 37.0 G/DL 02/18/2020 7:39 AM SUPPORT MANAGER [facility] RDW 14.2 11.5 - 14.5 % 02/18/2020 7:39 AM SUPPORT MANAGER [facility] PLT 199 150 - 350 x10'3/uL 02/18/2020 7:39 AM SUPPORT MANAGER [facility] 02/18/2020 6:50 AM SUPPORT MANAGER us Melvin Gandhi MD LABORATORY Final Resul t [facility] [address] [place] [address], * Pathology (02/17/2020 4:03 PM SUPPORT MANAGER) COPATH REPORT ?[facility] ? [address] [facility] ?[place] [address] ? [phone] ? Department of Pathology ? Pathology Report ? Surgical Pathology Report Patient Name: ISMAEL PEÑA ? : 1980 (Age: 39) ?Location: [facility] Gender: F ?Collected Date: 02/17/2020 Med Rec #: [id number] ?Date Received: 02/18/2020 Date Reported: 02/20/2020 Provider: MELVIN GANDHI MD Specimen(s) Placenta and Umbilical Cord, Final Pathologic Diagnosis PLACENTA AND UMBILICAL CORD, SECTION: ? - ? MEMBRANES WITH ACUTE CHORIOAMNIONITIS AND MECONIUM-LADEN ?HISTIOCYTES ? - ? UNREMARKABLE THREE-VESSEL UMBILICAL CORD ? - ? TRIMMED PLACENTAL WEIGHT 680 GRAMS (>90TH PERCENTILE FOR GESTATIONAL AGE) ? - ? INTERVILLOUS THROMBOHEMATOMA FOCALLY INVOLVING THE MATERNAL SURFACE ? - ? FOCAL COTYLEDON DISRUPTION ? - ? INCREASED INTERVILLOUS FIBRIN DEPOSITION Electronically Signed Out ? AGUEDA HEREDIA MD Pathologist OJL:pb Microscopic Description: Microscopic examination substantiates the above captioned diagnosis. Clinical History Failure to progress, polyhydramnios, meconium stained, weight 3920g, gestational age 39 0/7, 4-7 Gross Description The specimen is received in a formalin-filled container labeled (Ismael Peña), and with the patient's date of and consists of travis placenta with a trimmed weight of 680 grams that measures 21 x 15 x 3.2 cm. ??The three-vessel umbilical cord inserts eccentrically at a distance of 5.5 cm from the nearest disc edge. ??The umbilical cord is yellow-white, congested, and measures 37 cm in length x an average diameter of 1.4 cm. ??The membranes attach at the margin, and are yellow-baires and slimy. ??The point of rupture cannot be determined. ??The surface is yellowish green with congested surface vessels and a scant amount of subchorionic fibrin deposition. ??The membranes are entirely stripped from the surface. ??The maternal surface shows disrupted cotyledons in two areas. ??The first measures 2.5 x 1.5 cm and is adjacent to a yellow-white plaque like lesion on the maternal surface that measures 3.0 x1.5 cm. ??The second area of cotyledon disruption measures 2.5 x 1.0 cm. ??The combined areas of cotyledon disruption occupy 5% or less of the maternal surface. ??The placenta is serially sectioned to reveal beefy red, spongy cut surfaces. ??No additional lesions are identified. ??Transfer Iron Operator sections are submitted as follows: ?? 1. ? Transfer Iron Operator membranes and umbilical cord 2. ? Transfer Iron Operator first area of cotyledon disruption with associated plaque like lesion ? 3. ? Additional retail customer service representative sections of plaque like lesion described in cassette 2 plus additional retail customer service representative area of cotyledon disruption 4-5. ? Grossly unremarkable parenchyma ??OL/llc :pb Billing Fee Code(s): 73675 [facility] 02/17/2020 4:03 PM SUPPORT MANAGER 02/18/2020 9:44 AM SUPPORT MANAGER Comment:PLACENTA AND UMBILIC AL CORD, us Melvin Gandhi MD PATHOLOGY/CYTOLOGY ORDERABL ES Final Result [facility] [address] [place] [address], * CBC, AUTO, NO DIFF (02/16/2020 11:15 AM SUPPORT MANAGER) WBC 9.7 4.8 - 10.8 x10'3/uL 02/16/2020 11:58 AM [facility] RBC 4.60 4.10 - 5.10 x10'6/uL 02/16/2020 11:58 AM [facility] HGB 12.7 12.0 - 16.0 G/DL 02/16/2020 11:58 AM [facility] HCT 38.0 36 - 46 % 02/16/2020 11:58 AM [facility] MCV 82.6 80 - 100 FL 02/16/2020 11:58 AM [facility] MCH 27.6 26.0 - 34.0 PG 02/16/2020 11:58 AM [facility] MCHC 33.4 31.0 - 37.0 G/DL 02/16/2020 11:58 AM [facility] RDW 14.1 11.5 - 14.5 % 02/16/2020 11:58 AM [facility] PLT 246 150 - 350 x10'3/uL 02/16/2020 11:58 AM [facility] 02/16/2020 11:1 5 AM SUPPORT MANAGER us Tammy Kandyloch DO LABORATORY Final Resul t [facility] [address] [place] [address], * TYPE & SCREEN (02/16/2020 11:15 AM SUPPORT MANAGER) ABO/RH A POSITIVE 02/16/2020 12:12 PM SUPPORT MANAGER [facility] ANTIBODY SCREEN NEGATIVE 02/16/2020 12:39 PM [facility] SAMPLE EXPIRATION 02/19/2020,2 359 02/16/2020 12:12 PM [facility] 02/16/2020 11:1 5 AM SUPPORT MANAGER Tammyana Spann DO BLOOD BANK TEST ORDERABLES Final Result [facility] [address] [place] [address], [place] [phone] * DRUG SCREEN RAPID (02/16/2020 9:00 AM SUPPORT MANAGER) AMPHETAMINE (U) NEGATIVE NEGATIVE 0 3:11 PM [facility] BARBITURATES SCREEN (U) NEGATIVE NEGATIVE 02/16/2020 3:11 PM [facility] BENZODIAZEPINES SCREEN (U) NEGATIVE NEGATIVE 02/16/2020 3:11 PM [facility] BUPRENORPHINE SCREEN (U) NEGATIVE NEGATIVE 02/16/2020 3:11 PM [facility] COCAINE METABOLITES (U) NEGATIVE NEGATIVE 02/16/2020 3:11 PM [facility] METHAMPHETAMINE (U) NEGATIVE NEGATIVE 02/15 3:11 PM [facility] METHADONE (U) NEGATIVE NEGATIVE 02/16/2020 3:11 PM [facility] OPIATE SCREEN (U) NEGATIVE NEGATIVE 020 3:11 PM [facility] OXYCODONE SCREEN (U) NEGATIVE NEGATIVE 02/16/2020 3:11 PM [facility] PHENCYCLIDINE PCP (U) NEGATIVE NEGATIVE 02/16/2020 3:11 PM [facility] PROPOXYPHENE SCREEN (U) NEGATIVE NEGATIVE 02/16/2020 3:11 PM [facility] CANNABINOIDS SCREEN (U) NEGATIVE NEGATIVE 02/16/2020 3:11 PM [facility] TRICYCLIC ANTIDEPRESSANT SCREEN (U) NEGATIVE NEGATIVE 02/16/2020 3:11 PM [facility] Comment: NOTE: RESULTS OF THIS DRUG SCREEN SHOULD BE USED FOR MEDICAL PURPOSES ONLY AND NOT FOR LEGAL OR EMPLOYMENT PURPOSES. POSITIVE RESULTS ARE NOT CONFIRMED. MEDICATIONS CONTAINING EPHEDRINE MAY CAUSE FALSE POSITIVE AMPHETAMINE Cut-off Concentration for a positive result AMPHETAMINE- ?500 NG/ML BARBITURATE- ?200 NG/ML BENZODIAZEPINE- ?? 150 NG/ML BUPRENORPHINE- ? 10 NG/ML COCAINE- ?150 NG/ML METHAMPHETAMINES- 500 NG/ML METHADONE- ?200 NG/ML OPIATE- ? 100 NG/ML OXYCODONE- ?100 NG/ML PCP- ? 25 NG/ML PROPOXYPHENE- ? 300 NG/ML THC- ? 50 NG/ML TCA- ?300 NG/ML Urine specimen (specimen) URINE SPECIMEN / Unknown 02/16/2020 9:00 AM SUPPORT MANAGER Tammy Spann DO URINE ORDERABLES Final Resu lt Performing Organization Address City/State/[facility] Co de Phone Number [facility] [address] [place] [address], * GROUP B STREP MOLECULAR (01/31/2020) Pathologist [facility] GROUP B BETA STREP PCR not detected ANOVAGINAL Doc [facility] MICROBIOLOGY - GENERAL ORDER KAROL Final Result * OBSTETRIC PANEL, 28 WEEK (11/07/2019) GLUCOSE 1 HOUR POST DOSE 142 Comment:actually drawn on us Doc [facility] LABORATORY Final Result * OBSTETRIC PANEL (08/01/2019) HEPATITIS B SURFACE AG non-reactiv e RUBELLA IGG AB immune HIV 1/2 AB+ HIV1 P24 AG non-reactiv e SYPHILIS IGG AB non-reactiv e us [facility] LABORATORY Final Result * OBSTETRIC PANEL, 28 WEEK (08/01/2019) Pathologist [facility] GLUCOSE 1 HOUR POST DOSE 135 us Doc [facility] LABORATORY Final Result * TYPE & SCREEN (08/01/2019) Pathologist [facility] ANTIBODY SCREEN negative us Doc [facility] BLOOD BANK TEST ORDERABLES F inal Result documented in this encounter Visit Diagnoses Diagnosis Encounter for induction of labor (HHS/HCC) documented in this encounter Administered Medications Inactive Administered Medications - up to 3 most recent administrations Medication Order MAR Action Action Date Dose Rate Site acetaminophen (TYLENOL) tablet 650 mg 650 mg, Oral, Every 4 hours PRN, Mild pain (Scale 1 - 3), Fever, Starting on Sun02/16/20 at 0938, Until Rehana 02/19/20 at 1609, Maximum dose of acetaminophen is 4000 mg from all sources in 24 hours. Given 02/19/2020 2:14 AM SUPPORT MANAGER 650 mg Given 02/18/2020 9:01 PM SUPPORT MANAGER 650 mg Given 02/17/2020 11:47 AM SUPPORT MANAGER 650 mg butorphanol (STADOL) injection 1 mg 1 mg, Intravenous, Every 2 hours PRN, Moderate pain (Scale 4 - 7), Starting on 02/16/20 at 2209, Until Rehaan 02/19/20 at 1609 Given 02/16/2020 10:35 PM SUPPORT MANAGER 1 mg ceFAZolin (ANCEF) 2 g in sterile water 20 mL IV 2 g, Intravenous, at 240 mL/hr, house calls nurse practitioner, 1 dose, On Sun02/17/20 at 1530, Give 2 gram dose for patients less than 120 kg. Give within 60 minutes of surgical incision., Pre-Op Given 02/17/2020 3:24 PM SUPPORT MANAGER 2 g 240 mL/hr citric acid-sodium citrate (BICITRA) 500-334 MG/5ML oral solution 1 dose, Starting on Sun02/17/20 at 1519, Until Sun02/17/20 at 1524, Created by cabinet override Given 02/17/2020 3:24 PM SUPPORT MANAGER 15 mLs diphenhydrAMINE (BENADRYL) capsule 25 mg 25 mg, Oral, Nightly PRN, Allergies, Starting on Sun02/16/20 at 1828, Until Sun02/18/20 at 1735 Given 02/18/2020 8:36 AM SUPPORT MANAGER 25 mg Given 02/16/2020 7:05 PM SUPPORT MANAGER 25 mg diphenhydrAMINE (BENADRYL) capsule 25 mg 25 mg, Oral, 2 times daily, First dose (after last modification) on Sun02/18/20 at 2100, Until Discontinued Given 02/18/2020 9:01 PM SUPPORT MANAGER 25 mg diphenhydrAMINE (BENADRYL) injection 12.5 mg 12.5 mg, Intravenous, Once as needed, Itching, 1 dose, Starting on Sun02/17/20 at 0009, Until Sun02/19/20 at 1609, For IV administration, give no faster than 25 mg/min. diphenhydrAMINE (BENADRYL) injection 12.5 mg 12.5 mg, Intravenous, Every 4 hours PRN, Itching, Starting on Sun02/17/20 at 1603, Until Sun02/19/20 at 1609, For IV administration, give no faster than 25 mg/min., Post-Op famotidine (PEPCID) tablet 20 mg 20 mg, Oral, Every 12 hours PRN, Other, dyspepsia, Starting on Sun02/16/20 at 0938, Until Sun02/19/20 at 1609 fentaNYL 2 mcg/mL-BUpivacaine 0.125 % 100 mL epidural 14 mL/hr, Epidural, Continuous, Starting on Sun02/17/20 at 0030, Until Sun02/17/20 at 1604, LOADING DOSE: 5 milliliter (10 mcg) (bolus from pump) BASAL INFUSION RATE: 14 milliliter/hour continuous epidural infusion (20 mcg/hr) PCEA DEMAND DOSE: 5 milliliter (10 mcg) LOCKOUT INTERVAL: 15 minutes MAX DOSE LOCKOUT: 80 milliliter / 4 hours New Bag 02/17/2020 12:58 PM SUPPORT MANAGER 14 mL/h r 14 mL/hr New Bag 02/17/2020 6:34 AM SUPPORT MANAGER 14 mL/hr 14 mL/hr New Bag 02/17/2020 12:34 AM SUPPORT MANAGER 14 mL/hr 14 mL/hr heparin (porcine) injection 7,500 Units 7,500 Units, Subcutaneous, Every 12 hours, First dose on Sun02/17/20 at 2330, Until Discontinued, First dose to be administered once patient meets discharge criteria from PACU., Post-Op Given 02/19/2020 11:20 AM SUPPORT MANAGER 7,500 Units Left Arm Given 02/18/2020 11:54 PM SUPPORT MANAGER 7,500 Units Left Lower Abdomen Given 02/18/2020 12:04 PM SUPPORT MANAGER 7,500 Units Right Upper Abdomen HYDROcodone-acetaminophen (NORCO) 5-325 MG tablet 1 tablet 1 tablet, Oral, Every 4 hours PRN, Moderate pain (Scale 4 - 7), Starting on Sun02/17/20 at 1734, Until Rehana 02/19/20 at 1609, Maximum dose of acetaminophen is 4000 mg from all sources in 24 hours., Post-Op Given 02/19/2020 7:24 AM SUPPORT MANAGER 1 tablet Given 02/18/2020 11:55 PM SUPPORT MANAGER 1 tablet Given 02/18/2020 5:23 PM SUPPORT MANAGER 1 tablet ketorolac (TORADOL) injection 30 mg 30 mg, Intravenous, Every 6 hours, 4 doses, First dose on Sun02/17/20 at 1800, Last dose on Sun02/18/20 at 1200, For IV administration, give over 15 seconds., Post-Op Given 02/18/2020 4: 20 PM SUPPORT MANAGER 30 mg Given 02/18/2020 11:05 AM SUPPORT MANAGER 30 mg Given 02/18/2020 4:42 AM SUPPORT MANAGER 30 mg ketorolac (TORADOL) tablet 10 mg 10 mg, Oral, Every 6 hours, 16 doses, First dose on Sun02/18/20 at 1800, Last dose on Sun02/22/20 at 1200, Post-Op Given 02/19/2020 11:19 AM SUPPORT MANAGER 10 mg Given 02/19/2020 4:40 AM SUPPORT MANAGER 10 mg Given 02/18/2020 10:01 PM SUPPORT MANAGER 10 mg lactated ringers bolus infusion 1,000 mL 1,000 mL, Intravenous, Administer over 30 Minutes, Once, 1 dose, On Sun02/17/20 at 0030, If not previously administered New Bag 02/17/2020 12:30 AM SUPPORT MANAGER 1,000 mLs lactated ringers bolus infusion 500 mL 500 mL, Intravenous, Administer over 30 Minutes, Once, 1 dose, On Sun02/18/20 at 0500 New Bag 02/18/2020 4:41 AM SUPPORT MANAGER 500 mLs 999 mL/ hr lactated ringers infusion at 125 mL/hr, Intravenous, Continuous, Starting on Sun02/16/20 at 1000, Until Rehana 02/19/20 at 1609, For all patients in active labor with non-vertex presentation, multiple gestation, previous , persistent non-reassuring FHR, Hx post- hemorrhage, active phase longer than 8 hrs and/or patient desires an epidural. New Bag 02/17/2020 3:30 PM SUPPORT MANAGER New Bag 02/17/2020 10:45 AM SUPPORT MANAGER 500 mL/hr New Bag 02/17/2020 6:33 AM SUPPORT MANAGER 125 mL/hr lidocaine (XYLOCAINE) 1 % injection SOLN 1 dose, Starting on Sun02/16/20 at 1050, Until Sun02/16/20 at 1315, Created by cabinet override Given 02/16/2020 1:15 PM SUPPORT MANAGER 1 mL wgxyowevy-abuunztc-ewtytfvr one (MYLANTA MAXIMUM STRENGTH) 7323-5554-703 mg/30mL suspension 10 mL, Oral, Every 6 hours PRN, Indigestion, dyspepsia, Starting on Sun02/16/20 at 0938, Until Rehana 02/19/20 at 1609, Shake Well miSOPROStol (CYTOTEC) Split tab 25 mcg 25 mcg, Oral, Every 4 hours, First dose (after last modification) on Sun02/16/20 at 1530, Until Discontinued Given 02/16/2020 6:03 PM SUPPORT MANAGER 25 mcg miSOPROStol (CYTOTEC) Split tab 50 mcg 50 mcg, Oral, Once, 1 dose, On Sun02/16/20 at 1000, Hold dose if adequate contraction pattern defined as 3-5 contractions in 10 minutes or cervical change occurs. Given 02/16/2020 11:34 AM SUPPORT MANAGER 50 mcg naLOXone (NARCAN) 0.04 mg in sodium chloride (PF) 0.9 % IV syringe 0.04 mg, Intravenous, Every 5 min PRN, Other, for itching if?diphenhydramine is not effective, 4 doses, Starting on Sun02/17/20 at 1603, Until Sun02/19/20 at 1609, NALOXONE DOSE/DILUTION Dilute naloxone 0.4 mg (1 mL) with 9 mL NS to achieve concentration of 0.04 mg/mL. Admin/calculated amount is based on a concentration of 0.04 mg/mL. Administer each dose over 5-8 seconds. , Post-Op naLOXone (NARCAN) 2,000 mcg in sodium chloride 0.9 % 250 mL infusion 1.7 mcg/kg/hr ? 118.4 kg (25.16 mL/hr, rounded to 25.2 mL/hr), Intravenous, Continuous PRN, For severe N/V or pruritis, Starting on Sun02/17/20 at 1603, Until Sun02/19/20 at 1609, Post-Op naLOXone (NARCAN) injection 0.4 mg 0.4 mg, Intravenous, As needed, Opioid reversal, If patient exhibits somnolence and/or excessive sedation or if respirations fall below 8 per minute, 2 doses, Starting on Sun02/17/20 at 0009, Until Sun02/19/20 at 1609, Administer every 2 minutes as needed for 2 doses. naLOXone (NARCAN) injection 0.4 mg 0.4 mg, Intravenous, As needed, Opioid reversal, POSS of 4, if patient exhibits somnolence, excessive sedation, or respiratory rate is less than 8 breaths per minute., 2 doses, Starting on Sun02/17/20 at 1603, Until Sun02/19/20 at 1609, Administer every 2 minutes as needed for 2 doses., Post-Op ondansetron (ZOFRAN) injection 4 mg 4 mg, Intravenous, Every 8 hours PRN, Nausea, Vomiting, Starting on Sun02/16/20 at 0938, Until Sun02/19/20 at 1609, If unable to take PO. Given 02/17/2020 4:04 PM SUPPORT MANAGER 4 mg ondansetron (ZOFRAN-ODT) disintegrating tablet 8 mg 8 mg, Oral, Every 8 hours PRN, Nausea, Vomiting, Starting on Sun02/16/20 at 0938, Until Rehana 02/19/20 at 1609 oxytocin (PITOCIN) 30 units in NS 500 mL infusion 0-300 mL/hr, Intravenous, Continuous, Starting on Sun02/16/20 at 1000, Until Sun02/18/20 at 1133, Initiate during third stage of labor, timing to be determined by delivering provider. Initial rate at 300 ml/hr for the 1st hour, then decrease to 60 mL/hr for the 2nd hour.?? Continue this rate until the fundus is firm or the patient has completed her recovery phase. For uterine atony, increase oxytocin infusion to 600 ml/hr (36 units/hr) for one hour then decrease HAZARDOUS MEDICATION Rate/Dose Change 02/17/2020 6:30 AM SUPPORT MANAGER 7 mL/hr 7 mL/hr oxytocin (PITOCIN) 30 units in NS 500 mL infusion 0-300 suzan-units/min (0-300 mL/hr), Intravenous, Continuous, Starting on 02/17/20 at 0215, Until Sun02/18/20 at 1133, Start at 1 suzan-unit/min. Increase by 1 suzan-unit/min every 30 minutes until adequate contraction defined as 3-5 contractions in 10 minutes or cervical change occurs. Max dose of 30 suzan-units/min. Notify provider when dose has reached 20 suzan-unit/min. RN to adjust dose based upon maternal and/or response. If uterine tachysystole occurs with reassuring FHR:, -Decrease oxytocin rate by half -If tachysystole does not resolve within 15 minutes after initial intervention, stop oxytocin infusion and notify provider If uterine tachysystole occurs when the FHR is NOT reassuring: -Stop the oxytocin infusion. -Follow guidelines below for resumption of oxytocin when tachysystole resolved: If oxytocin is stopped due to tachysystole for less than 30 minutes resume oxytocin at half the rate at time it was stopped. If oxytocin is stopped due to tachysystole for longer than 30 minutes resume oxytocin at the initial ordered dose. If stopped for less than 30 minutes resume at half the rate at time it was stopped If stopped for more than 30 minutes resume at the initial dose ordered. Following delivery infuse any remaining oxytocin at 300ml/hr (300 suzan-units/min) for the fist hour, then decrease to 60 ml/r (60 suzan-units/min) for the 2nd hour. Continue this rate until the fundus is firm or the patient has completed her recovery phase. HAZARDOUS MEDICATION HAZARDOUS MEDICATION Rate/Dose Change 02/17/2020 1:55 PM SUPPORT MANAGER 5 suzan-units/min 5 mL/hr Rate/Dose Change 02/17/2020 12:55 PM SUPPORT MANAGER 3 suzan-units/min 3 mL/hr Rate/Dose Change 02/17/2020 12:15 PM SUPPORT MANAGER 2 suzan-units/min 2 mL/hr senna-docusate (SENOKOT-S) 8.6-50 MG tablet 1 tablet 1 tablet, Oral, 2 times daily, First dose on Sun02/17/20 at 2100, Until Discontinued, Post-Op Given 02/19/2020 7:25 AM SUPPORT MANAGER 1 tablet Given 02/18/2020 9:01 PM SUPPORT MANAGER 1 tablet Given 02/18/2020 8:35 AM SUPPORT MANAGER 1 tablet sertraline (ZOLOFT) tablet 200 mg 200 mg, Oral, Daily, First dose (after last modification) on Sun02/16/20 at 1900, Until Discontinued Given 02/16/2020 7:05 PM SUPPORT MANAGER 200 mg sertraline (ZOLOFT) tablet 200 mg 200 mg, Oral, Daily, First dose on Sun02/17/20 at 1800, Until Discontinued Given 02/17/2020 9:08 PM SUPPORT MANAGER 200 mg sertraline (ZOLOFT) tablet 200 mg 200 mg, Oral, Nightly at bedtime, First dose (after last modification) on Sun02/18/20 at 2100, Until Discontinued Given 02/18/2020 9:01 PM SUPPORT MANAGER 200 mg documented in this encounter Active and Recently Administered Medications Times are shown in SUPPORT MANAGER. Scheduled Medication Order 02/17/2020 02/18/2020 02/19/2020 ceFAZolin (ANCEF) 2 g in sterile water 20 mL IV (COMPLETED)(Linked Group 1) 2 g, Intravenous, at 240 mL/hr, house calls nurse practitioner, 1 dose, On Sun02/17/20 at 1530, Give 2 gram dose for patients less than 120 kg. Give within 60 minutes of surgical incision., Pre-Op 1524 (Given - Provider: Corine Escalona, DENAE) diphenhydrAMINE (BENADRYL) capsule 25 mg 25 mg, Oral, 2 times daily, First dose (after last modification) on Sun02/18/20 at 2100, Until Discontinued 210 (Given - Provider: Laurie Catnu, DENAE) 0900 (Canceled Entry - Provider: Automatic Discharge Provider - Comment: Automatically canceled at discontinue of medication order) heparin (porcine) injection 7,500 Units 7,500 Units, Subcutaneous, Every 12 hours, First dose on Sun02/17/20 at 2330, Until Discontinued, First dose to be administered once patient meets discharge criteria from PACU., Post-Op 2348 (Given - Provider: Avani Moreno RN) 1204 (Given - Provider: Ita Khalil, DENAE)2354 (Given - Provider: Laurie Cantu, DENAE) 1120 (Given - Provider: Namrata Fernando, DENAE) ketorolac (TORADOL) injection 30 mg (COMPLETED)(Linked Group 2) 30 mg, Intravenous, Every 6 hours, 4 doses, First dose on Sun02/17/20 at 1800, Last dose on Sun02/18/20 at 1200, For IV administration, give over 15 seconds., Post-Op 2222 (Given - Provider: Avani Moreno RN) 0442 (Given - Provider: Avani Moreno, DENAE)1105 (Given - Provider: Ita Khalil, DENAE)1620 (Given - Provider: Ita Khalil, DENAE) ketorolac (TORADOL) tablet 10 mg(Linked Group 2) 10 mg, Oral, Every 6 hours, 16 doses, First dose on Sun02/18/20 at 1800, Last dose on Sun02/22/20 at 1200, Post-Op 2201 (Given - Provider: Laurie Cantu RN) 0440 (Given - Provider: Laurie Cantu, DENAE)0600 (Canceled Entry - Provider: Automatic Discharge Provider - Comment: Automatically canceled at discontinue of medication order)1119 (Given - Provider: Namrata Fernando, DENAE) lactated ringers bolus infusion 1,000 mL (COMPLETED) 1,000 mL, Intravenous, Administer over 30 Minutes, Once, 1 dose, On Sun02/17/20 at 0030, If not previously administered 0030 (New Bag - Provider: Quincy Walsh RN)0100 (Due: Infusion Stop Time - Provider: Quincy Walsh, DENAE) lactated ringers bolus infusion 500 mL (COMPLETED) 500 mL, Intravenous, Administer over 30 Minutes, Once, 1 dose, On Sun02/18/20 at 0500 0441 (New Bag - Provider: Avani Moreno RN)0511 (Due: Infusion Stop Time - Provider: Avani Moreno RN) senna-docusate (SENOKOT-S) 8.6-50 MG tablet 1 tablet 1 tablet, Oral, 2 times daily, First dose on Sun02/17/20 at 2100, Until Discontinued, Post-Op 2099 (Not Given - Provider: Avani Moreno RN - Reason: Patient/family declined) 0835 (Given - Provider: Ita Khalil RN)210 (Given - Provider: Laurie Cantu RN) 0725 (Given - Provider: Namrata Fenrando RN) sertraline (ZOLOFT) tablet 200 mg (CANCELED) 200 mg, Oral, Daily, First dose on Sun02/17/20 at 1800, Until Discontinued 2107 (Given - Provider: Avani Moreno RN) 0900 (Due) sertraline (ZOLOFT) tablet 200 mg 200 mg, Oral, Nightly at bedtime, First dose (after last modification) on Sun02/18/20 at 2100, Until Discontinued 2100 (Given - Provider: Laurie Cantu RN) Continuous Medication Order 02/17/2020 02/18/2020 02/19/2020 fentaNYL 2 mcg/mL-BUpivacaine 0.125 % 100 mL epidural (CANCELED) 14 mL/hr, Epidural, Continuous, Starting on Sun02/17/20 at 0030, Until Sun02/17/20 at 1604, LOADING DOSE: 5 milliliter (10 mcg) (bolus from pump) BASAL INFUSION RATE: 14 milliliter/hour continuous epidural infusion (20 mcg/hr) PCEA DEMAND DOSE: 5 milliliter (10 mcg) LOCKOUT INTERVAL: 15 minutes MAX DOSE LOCKOUT: 80 milliliter / 4 hours 0034 (New Bag - Provider: Quincy Walsh, DENAE)0634 (New Bag - Provider: Corine Escalona RN)1258 (New Bag - Provider: Lali Mcneil RN) lactated ringers infusion at 125 mL/hr, Intravenous, Continuous, Starting on Sun02/16/20 at 1000, Until Rehana 02/19/20 at 1609, For all patients in active labor with non-vertex presentation, multiple gestation, previous , persistent non-reassuring FHR, Hx post- hemorrhage, active phase longer than 8 hrs and/or patient desires an epidural. 0130 (New Bag - Provider: Quincy Walsh RN)0633 (New Bag - Provider: Corine Escalona RN)1045 (New Bag - Provider: Corine Escalona RN)1530 (New Bag - Provider: Bianca Pedroza CRNA)1628 (Infusion Stop Time - Provider: Bianca Pedroza CRNA) oxytocin (PITOCIN) 30 units in NS 500 mL infusion (CANCELED) 0-300 mL/hr, Intravenous, Continuous, Starting on Sun02/16/20 at 1000, Until Sun02/18/20 at 1133, Initiate during third stage of labor, timing to be determined by delivering provider. Initial rate at 300 ml/hr for the 1st hour, then decrease to 60 mL/hr for the 2nd hour.?? Continue this rate until the fundus is firm or the patient has completed her recovery phase. For uterine atony, increase oxytocin infusion to 600 ml/hr (36 units/hr) for one hour then decrease HAZARDOUS MEDICATION 0630 (Rate/Dose Change - Provider: Corine Escalona RN) oxytocin (PITOCIN) 30 units in NS 500 mL infusion (CANCELED) 0-300 suzan-units/min (0-300 mL/hr), Intravenous, Continuous, Starting on Sun02/17/20 at 0215, Until Sun02/18/20 at 1133, Start at 1 suzan-unit/min. Increase by 1 suzan-unit/min every 30 minutes until adequate contraction defined as 3-5 contractions in 10 minutes or cervical change occurs. Max dose of 30 suzan-units/min. Notify provider when dose has reached 20 suzan-unit/min. RN to adjust dose based upon maternal and/or response. If uterine tachysystole occurs with reassuring FHR:, -Decrease oxytocin rate by half -If tachysystole does not resolve within 15 minutes after initial intervention, stop oxytocin infusion and notify provider If uterine tachysystole occurs when the FHR is NOT reassuring: -Stop the oxytocin infusion. -Follow guidelines below for resumption of oxytocin when tachysystole resolved: If oxytocin is stopped due to tachysystole for less than 30 minutes resume oxytocin at half the rate at time it was stopped. If oxytocin is stopped due to tachysystole for longer than 30 minutes resume oxytocin at the initial ordered dose. If stopped for less than 30 minutes resume at half the rate at time it was stopped If stopped for more than 30 minutes resume at the initial dose ordered. Following delivery infuse any remaining oxytocin at 300ml/hr (300 suzan-units/min) for the fist hour, then decrease to 60 ml/r (60 suzan-units/min) for the 2nd hour. Continue this rate until the fundus is firm or the patient has completed her recovery phase. HAZARDOUS MEDICATION HAZARDOUS MEDICATION 0209 (New Bag - Provider: Quincy Walsh RN)0303 (Rate/Dose Change - Provider: Quincy Walsh RN)0330 (Rate/Dose Change - Provider: Quincy Walsh RN)0400 (Rate/Dose Change - Provider: Quincy Walsh RN)0430 (Rate/Dose Change - Provider: Quincy Walsh RN)0525 (Rate/Dose Change - Provider: Corine Escalona RN)0630 (Rate/Dose Change - Provider: Corine Escalona RN)0700 (Rate/Dose Change - Provider: Corine Escalona RN)0730 (Rate/Dose Change - Provider: Corine Escalona RN)0900 (Rate/Dose Change - Provider: Corine Escalona RN)1025 (Infusion Stop Time - Provider: Corine Escalona RN)1100 (Restarted - Provider: Corine Escalona RN)1215 (Rate/Dose Change - Provider: Corine Escalona RN)1255 (Rate/Dose Change - Provider: Lali Mcneil RN)1355 (Rate/Dose Change - Provider: Corine Escalona RN)1440 (Infusion Stop Time - Provider: Corine Escalona RN) oxytocin (PITOCIN) 30 units in NS 500 mL infusion (CANCELED) 0-300 mL/hr, Intravenous, Continuous, Starting on Sun02/17/20 at 1530, Until Sun02/18/20 at 1133, Initial rate at 300 ml/hr for the 1st hour, then decrease to 60 mL/hr for the 2nd hour. Continue this rate until the fundus is firm or the patient has completed her recovery phase. HAZARDOUS MEDICATION, Pre-Op 1628 (New Bag - Provider: Bianca Pedroza CRNA) PRN Medication Order 02/17/2020 02/18/2020 02/19/2020 acetaminophen (TYLENOL) tablet 650 mg 650 mg, Oral, Every 4 hours PRN, Mild pain (Scale 1 - 3), Fever, Starting on Sun02/16/20 at 0938, Until Sun02/19/20 at 1609, Maximum dose of acetaminophen is 4000 mg from all sources in 24 hours. 1147 (Given - Provider: Corine Escalona RN) 2101 (Given - Provider: Laurie Cantu RN) 0214 (Given - Provider: Laurie Cantu RN) butorphanol (STADOL) injection 1 mg 1 mg, Intravenous, Every 2 hours PRN, Moderate pain (Scale 4 - 7), Starting on Sun02/16/20 at 2209, Until Sun02/19/20 at 1609 diphenhydrAMINE (BENADRYL) capsule 25 mg (CANCELED) 25 mg, Oral, Nightly PRN, Allergies, Starting on Sun02/16/20 at 1828, Until Sun02/18/20 at 1735 0836 (Given - Provider: Ita Khalil RN) diphenhydrAMINE (BENADRYL) injection 12.5 mg 12.5 mg, Intravenous, Once as needed, Itching, 1 dose, Starting on Sun02/17/20 at 0009, Until Sun02/19/20 at 1609, For IV administration, give no faster than 25 mg/min. diphenhydrAMINE (BENADRYL) injection 12.5 mg 12.5 mg, Intravenous, Every 4 hours PRN, Itching, Starting on Sun02/17/20 at 1603, Until Sun02/19/20 at 1609, For IV administration, give no faster than 25 mg/min., Post-Op famotidine (PEPCID) tablet 20 mg 20 mg, Oral, Every 12 hours PRN, Other, dyspepsia, Starting on Sun02/16/20 at 0938, Until Sun02/19/20 at 1609 HYDROcodone-acetaminophen (NORCO) 5-325 MG tablet 1 tablet 1 tablet, Oral, Every 4 hours PRN, Moderate pain (Scale 4 - 7), Starting on Sun02/17/20 at 1734, Until Sun02/19/20 at 1609, Maximum dose of acetaminophen is 4000 mg from all sources in 24 hours., Post-Op 1335 (Given - Provider: Ita Khalil, DENAE)1723 (Given - Provider: Laurie Cantu RN)2355 (Given - Provider: Laurie Cantu RN) 0724 (Given - Provider: Namrata Fernando RN) hzupgsyzw-kptclmkm-unbcde icone (MYLANTA MAXIMUM STRENGTH) 2790-1379-655 mg/30mL suspension 10 mL, Oral, Every 6 hours PRN, Indigestion, dyspepsia, Starting on Sun02/16/20 at 0938, Until Sun02/19/20 at 1609, Shake Well naLOXone (NARCAN) 0.04 mg in sodium chloride (PF) 0.9 % IV syringe 0.04 mg, Intravenous, Every 5 min PRN, Other, for itching if?diphenhydramine is not effective, 4 doses, Starting on Sun02/17/20 at 1603, Until Sun02/19/20 at 1609, NALOXONE DOSE/DILUTION Dilute naloxone 0.4 mg (1 mL) with 9 mL NS to achieve concentration of 0.04 mg/mL. Admin/calculated amount is based on a concentration of 0.04 mg/mL. Administer each dose over 5-8 seconds. , Post-Op naLOXone (NARCAN) 2,000 mcg in sodium chloride 0.9 % 250 mL infusion 1.7 mcg/kg/hr ? 118.4 kg (25.16 mL/hr, rounded to 25.2 mL/hr), Intravenous, Continuous PRN, For severe N/V or pruritis, Starting on Sun02/17/20 at 1603, Until 02/19/20 at 1609, Post-Op naLOXone (NARCAN) injection 0.4 mg 0.4 mg, Intravenous, As needed, Opioid reversal, If patient exhibits somnolence and/or excessive sedation or if respirations fall below 8 per minute, 2 doses, Starting on Sun02/17/20 at 0009, Until Sun02/19/20 at 1609, Administer every 2 minutes as needed for 2 doses. naLOXone (NARCAN) injection 0.4 mg 0.4 mg, Intravenous, As needed, Opioid reversal, POSS of 4, if patient exhibits somnolence, excessive sedation, or respiratory rate is less than 8 breaths per minute., 2 doses, Starting on Sun02/17/20 at 1603, Until Sun02/19/20 at 1609, Administer every 2 minutes as needed for 2 doses., Post-Op ondansetron (ZOFRAN) injection 4 mg 4 mg, Intravenous, Every 8 hours PRN, Nausea, Vomiting, Starting on Sun02/16/20 at 0938, Until Sun02/19/20 at 1609, If unable to take PO. 1604 (Given - Provider: Bianca Pedroza CRNA) ondansetron (ZOFRAN-ODT) disintegrating tablet 8 mg 8 mg, Oral, Every 8 hours PRN, Nausea, Vomiting, Starting on Sun02/16/20 at 0938, Until Rehana 02/19/20 at 1609 phenylephrine (MIGUELITO-SYNEPHRINE) injection 100 mcg (COMPLETED) 100 mcg, Intravenous, Once as needed, Hypotension with SBP less than 100 and symptomatic, 1 dose, Starting on Sun02/17/20 at 0009, Until Sun02/17/20 at 1606 1539 (Given - Provider: Bianca Pedroza CRNA)1544 (Given - Provider: Bianca Pedroza CRNA)1546 (Given - Provider: Bianca Pedroza CRNA)1549 (Given - Provider: Bianca Pedroza CRNA)1557 (Given - Provider: Bianca Pedroza CRNA)1600 (Given - Provider: Bianca Pedroza CRNA)1606 (Given - Provider: Bianca Pedroza CRNA) No Frequency Medication Order 02/17/2020 02/18/2020 02/19/2020 citric acid-sodium citrate (BICITRA) 500-334 MG/5ML oral solution (COMPLETED) 1 dose, Starting on Sun02/17/20 at 1519, Until Sun02/17/20 at 1524, Created by cabinet override 1524 (Given - Provider: Corine Escalona RN) Linked Groups Order Group 1: ceFAZolin (ANCEF) 2 g in sterile water 20 mL IV (COMPLETED)Jump to med 2 g, Intravenous, at 240 mL/hr, house calls nurse practitioner, 1 dose, On Sun02/17/20 at 1530, Give 2 gram dose for patients less than 120 kg. Give within 60 minutes of surgical incision., Pre-Op Or ceFAZolin (ANCEF) 3 g in sterile water 20 mL IV (CANCELED) 3 g, Intravenous, at 240 mL/hr, house calls nurse practitioner, 1 dose, On Sun02/17/20 at 1530, Give 3 gram dose for patients 120 kg and greater. Give within 60 minutes of surgical incision., Pre-Op Group 2: ketorolac (TORADOL) injection 30 mg (COMPLETED)Jump to med 30 mg, Intravenous, Every 6 hours, 4 doses, First dose on Sun02/17/20 at 1800, Last dose on Sun02/18/20 at 1200, For IV administration, give over 15 seconds., Post-Op Followed by ketorolac (TORADOL) tablet 10 mgJump to med 10 mg, Oral, Every 6 hours, 16 doses, First dose on Sun02/18/20 at 1800, Last dose on Sun02/22/20 at 1200, Post-Op documented in this encounter Care Teams Nanofabrication Specialist Relationship Specialty Start Date End Date Betty Soni PA-C PCP - General NURSE PRACTITIONER 06/24/19 documented as of this encounter
--- OUTSIDE RECORDS SUMMARY | 2024-04-06 17:21 | XMS_ITS | Encounter Summary ---
Author Organization [facility] Address [address] [place] [address]. [place], [place] [id number] [place] [address] Care Team Providers Care Cover Cutter Machine Name Role Phone Lorelei Davis PA-C Primary Care Provider +1- [phone] Encounter Details Date Type Department Care Team (Latest Contact Info) Description 07/04/2019 Travel Social History Tobacco Use Types Packs/Day [...] on filedocumented in this encounter Care Teams Cover Cutter Machine Relationship Specialty Start Date End Date Lorelei Davis PA-C PCP - General NURSE PRACTITIONER 06/24/19 documented as of this encounter
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
--- OUTSIDE RECORDS SUMMARY | 2024-04-06 17:21 | XMS_ITS | Encounter Summary ---
Author Organization [facility] Address [address] [place] [address]. [place], [place] [id number] [place] [address] Care Team Providers Care Political Consultant Name Role Phone Lorelei Davis PA-C Primary Care Provider +1- [phone] Encounter Details Date Type Department Care Team (Latest Contact Info) Description 02/08/2020 Travel Social History Tobacco Use Types Packs/Day [...] COVID-19? 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
--- OUTSIDE RECORDS SUMMARY | 2024-04-06 17:21 | XMS_ITS | Encounter Summary ---
Author Organization [facility] Address [address] [place] [address]. [place] [address] [place] [address] Care Team Providers Care American Studies Professor Name Role Phone Lorelei Davis PA-C Primary Care Provider +1- [phone] Encounter Details Date Type Department Care Team (Late st Contact Info) Description 08/27/2019 Orders Only [facility] [address] [place] [address] Tammy Spann, [address] [place] [address] Social History Tobacco Use Types Packs/Day Years [...] have Coronavirus / COVID-19? No / Unsure 08/27/2019 7:36 AM CDT documented as of this encounter Plan of Treatment Not on file documented as of this encounter Results * GLUCOSE TOLERANCE TEST 3 HR OB (08/27/2019 7:58 AM CDT) GLUCOSE FASTING 91 70 - 99 mg/dL 08/27/2019 8:22 AM CDT [facility] ([facility] AMOUNT GIVEN 100 g 08/27/2019 8:22 AM CDT [facility] () [facility] PATHOLOGIST COMMENT 08/26 8:22 AM CDT [facility] Comment: ?? INTERPRETATION CRITERIA : ?CRITERIA FOR THE DIAGNOSIS OF ?GESTATIONAL DIABETES GLUCOSE TOLERANCE: ?FASTING GLUCOSE > 95 ?1HR GLUCOSE ? >180 ?2HR GLUCOSE ? >155 ?3HR GLUCOSE ? >140 ?NOTE:TWO OR MORE LEVELS HIGHER THAN ? DIAGNOSTIC CRITERIA INDICATE ?GESTATIONAL DIABETES. ?(REFERENCES:[facility], ? [employer].) 08/27/2019 7:58 AM CDT us Tammyana Spann DO LABORATORY Final Resul t [facility] [address] [place] [address], documented in this encounter Visit Diagnoses Diagnosis Abnormal maternal glucose tolerance, antepartum (HHS/HCC)- Primary Abnormal maternal glucose tolerance, antepartum documented in this encounter Care Teams American Studies Professor Relationship Specialty Start Date End Date Lorelei Davis PA-C PCP - General NURSE PRACTITIONER 06/24/19 documented as of this encounter
--- OUTSIDE RECORDS SUMMARY | 2024-04-06 17:21 | XMS_ITS | Encounter Summary ---
Author Organization [facility] Address [address] [place] [address]. [place] [address] [place] [address] Care Team Providers Care Azure Architect Name Role Phone Lorelei Davis PA-C Primary Care Provider +1- [phone] Encounter Details Date Type Department Care Team (Late st Contact Info) Description 12/01/2019 Orders Only [facility] [address] [place] [address] Gretchen Dove, XANDER [address] [place] [address] Social History Tobacco Use Types Packs/Day Years [...] have Coronavirus / COVID-19? No / Unsure 12/03/2019 6:18 AM CDT documented as of this encounter Plan of Treatment Not on file documented as of this encounter Results * ANTIBODY SCREEN (12/03/2019 7:02 AM CDT) ANTIBODY SCREEN NEGATIVE 12/03/2019 8:37 AM CDT [facility] () [facility] 12/03/2019 7:02 AM CDT Grethcen Dove CNM BLOOD BANK TEST ORDERABLES F inal Result Performing Organization Address City/[facility]/ZIP Co de Phone Number [facility] [address] [place] [address], [place] [phone] * HIV - RAPID (12/03/2019 7:02 AM CDT) HIV RAPID NON-REACTIV E NON-REACTI VE 12/03/2019 7:59 AM CDT [facility] 12/03/2019 7:02 AM CDT Gretchen TERRELL [facility] Final Result Performing Organization Address [facility]/ZIP Co de Phone Number [facility] [address] [place] [address], [place] [phone] * SYPHILIS IGG AB (12/03/2019 7:02 AM CDT) Pathologist [facility] SYPHILIS IGG AB NON-REACTI VE NON-REACTI VE 12/03/2019 2:27 PM CDT [facility] 12/03/2019 7:02 AM CDT Gretchen [facility] Final Result Performing Organization Address City/[facility]/ZIP Co de Phone Number [facility] [address] [place] [address], [place] [phone] * (ABNORMAL) CBC W/DIFF AUTOMATED (12/03/2019 7:02 AM CDT) Pathologist [facility] WBC 10.5 4.4 - 11.0 x10'3/uL 12/03/2019 7:30 AM CDT [facility] RBC 3.92(L) 4.50 - 5.10 x10'6/uL 12/03/2019 7:30 AM CDT [facility] HGB 11.9(L) 12.3 - 15.3 G/DL 12/03/2019 7:30 AM T [facility] HCT 34.3(L) 35.9 - 44.6 % 12/03/2019 7:30 AM T [facility] MCV 87.5 80.0 - 96.0 FL 12/03/2019 7:30 AM T [facility] MCH 30.4 25.3 - 30.9 PG 12/03/2019 7:30 AM [facility] MCHC 34.7(H) 31.0 - 34.1 G/DL 12/03/2019 7:30 AM [facility] RDW 12.5 12.4 - 15.1 % 12/03/2019 7:30 AM [facility] PLT 225 151 - 353 x10'3/uL 12/03/2019 7:30 AM [facility] MPV 9.3(L) 9.6 - 12.0 FL 12/03/2019 7:30 AM [facility] RBC MORPHOLOGY NORMAL 12/03/2019 7:30 AM [facility] PLT MORPH. NORMAL 12/03/2019 7:30 AM [facility] WBC MORPHOLOGY NORMAL 12/03/2019 7:30 AM [facility] LYMPHOCYTES % 10.4(L) 15.8 - 45.0 % 12/03/2019 7:30 AM [facility] NEUTROPHILS % 83.3(H) 42.1 - 71.9 % 12/03/2019 7:30 AM [facility] MONOCYTES % 5.2(L) 5.7 - 12.5 % 12/03/2019 7:30 AM [facility] EOSINOPHILS 0.5 0.0 - 5.6 % 12/03/2019 7:30 AM CDT [facility] BASOPHILS 0.2 0.0 - 1.3 % 12/03/2019 7:30 AM CDT [facility] ABS. NEUTROPHILS TOTAL 8.76(H) 1.40 - 6.00 x10'3/uL 12/03/2019 7:30 AM CDT [facility] IMMATURE GRANS % 0.4 0.0 - 0.5 % 12/03/2019 7:30 AM CDT [facility] ABS. LYMPHOCYTES 1.09 0.80 - 4.70 x10'3/uL 12/03/2019 7:30 AM CDT [facility] 12/03/2019 7:02 AM CDT [facility] Final Result [facility] [address] [place] [address], [place] [phone] * (ABNORMAL) GLUCOSE 1 HR PP (12/03/2019 7:02 AM CDT) [facility] GLUCOSE 1 HOUR POST DOSE 142(H) 70 - 130 MG/DL 12/03/2019 7:50 AM CDT [facility] 12/03/2019 7:02 AM CDT Gretchen [facility] Final Result [facility] [address] [place] [address], [place] [phone] documented in this encounter Visit Diagnoses Diagnosis Unspecified screening (HHS/HCC)- Primary Unspecified screening documented in this encounter Care Teams Azure Architect Relationship Specialty Start Date End Date Lorelei Davis PA-C PCP - General NURSE PRACTITIONER 06/24/19 documented as of this encounter
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
--- OUTSIDE RECORDS SUMMARY | 2024-04-06 17:21 | XMS_ITS | Encounter Summary ---
Author Organization [facility] Address [address] [place] [address]. [place], [place] [id number] [place] [id number] Care Team Providers Care Business Process Analyst Name Role Phone Lorelei Davis PA-C Primary Care Provider [phone]- [phone] Encounter Details Date Type Department Care Team (Latest Contact Info) Description 12/12/2019 Travel Social History Tobacco Use Types Packs/Day [...] have Coronavirus / COVID-19? No / Unsure 12/12/2019 7:05 AM CDT documented as of this encounter Plan of Treatment Not on file documented as of this encounter Visit Diagnoses Not on filedocumented in this encounter Care Teams Business Process Analyst Relationship Specialty Start Date End Date Lorelei Davis PA-C PCP - General NURSE PRACTITIONER 06/24/19 documented as of this encounter
--- OUTSIDE RECORDS SUMMARY | 2024-04-06 17:21 | XMS_ITS | Encounter Summary ---
Author Organization [facility] Address [address] [place] [address]. [place] [address] [place] [address] Care Team Providers Care Agricultural Research Engineer Name Role Phone Unavailable Primary Care Provider Unavailabl e Encounter Details Date Type Department Care Team (Late st Contact Info) Description 03/24/2018 Abstract [facility] Care [address] [place] [address] Social History Tobacco Use Types Packs/Day Years [...] Procedure Name Priority Date/Time Associated Diagnosis Comments STREP A, DNA Routine 03/24/2018 9:20 AM CEMENT FINISHER APPRENTICE RAPID STREP A STAT 03/24/2018 9:20 AM CEMENT FINISHER APPRENTICE INFLUENZA A & B STAT 03/24/2018 9:20 AM CEMENT FINISHER APPRENTICE documented in this encounter Results * STREP A, DNA (03/24/2018 9:20 AM CEMENT FINISHER APPRENTICE) STREP A MOLECULAR NEGATIVE NEGATIVE 03/24/2018 11:27 AM CEMENT FINISHER APPRENTICE [facility] Comment: NOTE: A negative result is highly sensitivefor S. pyogenes in throat specimens.This test does not distinguish between viableand non-viable organisms.If the result is negative and symptomspersist, additional testing is recommended torule out other pathogens. 03/24/2018 9:20 AM CEMENT FINISHER APPRENTICE us Generic Conversion Md [facility] MICROBIOLOGY - GENERAL ORDERABLES Final Result Performing Organization Address [facility] Co de Phone Number [facility] [address] [place] [address], [place] [phone] * RAPID STREP A (03/24/2018 9:20 AM CEMENT FINISHER APPRENTICE) RAPID STREP TEST NEGATIVE NEGATIVE 03/24/2018 10:33 AM CEMENT FINISHER APPRENTICE [facility] SERUM OR PLASMA SPECIMEN / Unknown 03/24/2018 9:20 AM CEMENT FINISHER APPRENTICE 03/24/2018 10:24 AM CEMENT FINISHER APPRENTICE Comment:ACELLULAR BLOOD (SER UM OR PLASMA) SPECIMEN us Generic Conversion Md [facility] MICROBIOLOGY - GENERAL ORDERABLES Final Result Performing Organization Address [facility] Co de Phone Number [facility] [address] [place] [address], [place] [phone] * INFLUENZA A & B (03/24/2018 9:20 AM CEMENT FINISHER APPRENTICE) SPECIMEN TYPE NASAL 03/24/2018 10:24 AM CEMENT FINISHER APPRENTICE [facility] INFLUENZA A NEGATIVE NEGATIVE 03/24/2018 10:43 AM CEMENT FINISHER APPRENTICE [facility] INFLUENZA B NEGATIVE NEGATIVE 03/24/2018 10:43 AM CEMENT FINISHER APPRENTICE [facility] 03/24/2018 9:20 AM CEMENT FINISHER APPRENTICE 03/24/2018 10:24 AM CEMENT FINISHER APPRENTICE us Generic Conversion Md [facility] MICROBIOLOGY - GENERAL ORDERABLES Final Result Performing Organization Address [facility] Co de Phone Number [facility] [address] [place] [address], [place] [phone] documented in this encounter Visit Diagnoses Diagnosis Acute sinusitis Acute sinusitis, unspecified documented in this encounter
--- OUTSIDE RECORDS SUMMARY | 2024-04-06 17:21 | XMS_ITS | Encounter Summary ---
Author Organization [facility] Address [address] [place] [address]. [place] [address] [place] [address] Care Team Providers Care Brick Offbearer Name Role Phone Lorelei Davis PA-C Primary Care Provider +1- [phone] Encounter Details Date Type Department Care Team (Latest Contact Info) Description 12/12/2019 7:06 AM CDT - 12/12/2019 11:59 PM CDT Hospital Encounter [facility] [address] [place], [place] [id number] Gretchen Dove, [facility] [address] [place] [address] Discharge Disposition: Home or Self Care (Routine [...] Procedure Name Priority Date/Time Associated Diagnosis Comments HC GLUCOSE TOLERANCE ADDL SPEC Routine 12/12/2019 10:40 AM CDT GLUCOSE TOLERANCE 2 HR OB Routine 12/12/2019 9:38 AM CDT GLUCOSE TOLERANCE 1 HR OB Routine 12/12/2019 8:37 AM CDT GLUCOSE TOLERANCE TEST 3 HR Routine 12/12/2019 7:16 AM CDT Abnormal maternal glucose tolerance, antepartum (HHS/HCC) documented in this encounter Results * GLUCOSE TOLERANCE TEST, 3HR OB (12/12/2019 10:40 AM CDT) GLUCOSE 3 HR 97 mg/dL 12/12/2019 11:27 AM CDT [facility] 12/12/2019 10:4 0 AM CDT us Gretchen Dove CNM LABORATORY Final Result Performing Organization Address [facility] Co de Phone Number [facility] [address] [place] [address], [place] [phone] * GLUCOSE TOLERANCE 2 HR OB (12/12/2019 9:38 AM CDT) GLUCOSE 2 HR 128 mg/dL 12/12/2019 10:40 AM CDT [facility] 12/12/2019 9:38 AM CDT us Gretchen Dove CNM LABORATORY Final Result Performing Organization Address City/[facility] Co de Phone Number [facility] [address] [place] [address], [place] [phone] * GLUCOSE TOLERANCE 1 HR OB (12/12/2019 8:37 AM CDT) GLUCOSE 1 HR 173 mg/dL 12/12/2019 9:40 AM CDT [facility] 12/12/2019 8:37 AM CDT us Gretchen Dove CNM LABORATORY Final Result Performing Organization Address City/State/[facility] de Phone Number [facility] [address] [place] [address], * GLUCOSE TOLERANCE TEST 3 HR OB (12/12/2019 7:16 AM CDT) GLUCOSE FASTING 83 70 - 99 mg/dL 12/12/2019 7:38 AM CDT [facility] AMOUNT GIVEN 100 g 12/12/2019 7:38 AM CDT [facility] PATHOLOGIST COMMENT 12/11 7:38 AM CDT [facility] Comment: ?? INTERPRETATION CRITERIA : ?CRITERIA FOR THE DIAGNOSIS OF ?GESTATIONAL DIABETES GLUCOSE TOLERANCE: ?FASTING GLUCOSE > 95 ?1HR GLUCOSE ? >180 ?2HR GLUCOSE ? >155 ?3HR GLUCOSE ? >140 ?NOTE:TWO OR MORE LEVELS HIGHER THAN ? DIAGNOSTIC CRITERIA INDICATE ?GESTATIONAL DIABETES. ?(REFERENCES:NATIONAL INSTITUTES OF HEALTH, ? [employer].) 12/12/2019 7:16 AM CDT Gretchen TERRELL LABORATORY Final Result Performing Organization Address [facility] de Phone Number [facility] [address] [place] [address], [place] [phone] documented in this encounter Visit Diagnoses Diagnosis Abnormal maternal glucose tolerance, antepartum (HHS/HCC) Abnormal maternal glucose tolerance, antepartum documented in this encounter Care Teams Brick Offbearer Relationship Specialty Start Date End Date Lorelei Davis PA-C PCP - General NURSE PRACTITIONER 06/24/19 documented as of this encounter
--- OUTSIDE RECORDS SUMMARY | 2024-04-06 17:21 | XMS_ITS | Encounter Summary ---
Author Organization [facility] Address [address] [place] [address]. [place] [address] [place] [address] Care Team Providers Care Contact Acid Plant Operator Name Role Phone Unavailable Primary Care Provider Unavailabl e Encounter Details Date Type Department Care Team (Late st Contact Info) Description 06/21/2017 Abstract [facility] Emergency Room [address] [place] [address] Magdi Lu MD Social History Tobacco Use Types Packs/Day Years [...] Procedure Name Priority Date/Time Associated Diagnosis Comments URINALYSIS WI REFLEX TO CULTURE STAT 06/21/2017 9:25 AM CDT COMPREHENSIVE METABOLIC PANEL STAT 06/21/2017 8:20 AM CDT CHORIONIC GONADOTROPIN HCG QL STAT 06/21/2017 8:20 AM CDT CBC W/DIFF AUTOMATED STAT 06/21/2017 8:20 AM CDT LIPASE STAT 06/21/2017 8:20 AM CDT STOOL FOR WBC STAT 06/21/2017 8:00 AM CDT CLOSTRIDIUM DIFFICILE STAT 06/21/2017 8:00 AM CDT O&P CONC&SMEAR TO REF LAB STAT 06/21/2017 8:00 AM CDT OCCULT BLOOD, FECES STAT 06/21/2017 8 :00 AM CDT CULTURE STOOL Routine 06/21/2017 8:00 AM CDT ROTAVIRUS AG, EIA STAT 06/21/2017 8:0 0 AM CDT CRYPTOSPOR/GIARDIA AG, EIA STAT 06/21/2017 8:00 AM CDT documented in this encounter Results * (ABNORMAL) URINALYSIS WI REFLEX TO CULTURE (06/21/2017 9:25 AM CDT) COLOR (U) YELLOW 06/21/2017 10:11 AM CDT [facility] TRANSPARENCY CLEAR 06/21/2017 10:11 AM CDT [facility] SPECIFIC GRAVITY (U) >1.030(H) 1.000 - 1.030 06/21/2017 10:11 AM CDT [facility] U PH 5.5 5.0 - 9.0 06/21/2017 10:11 AM CDT [facility] LEUKOCYTES (U) NEGATIVE NEGATIVE 06/21/2017 10:11 AM CDT [facility] NITRITES NEGATIVE NEGATIVE 06/21/2017 10:11 AM T [facility] PROTEIN (U) NEGATIVE NEGATIVE 06/21/2017 10:11 AM CDT [facility] URINE GLUCOSE NEGATIVE NEGATIVE 06/21/2017 10:11 AM CDT [facility] KETONES MG/DL (U) NEGATIVE NEGATIVE 06/21/2017 10:11 AM CDT [facility] BILIRUBIN (U) NEGATIVE NEGATIVE 06/21/2017 10:11 AM CDT [facility] BLOOD (U) 1+(A) NEGATIVE 06/21/2017 10:11 AM CDT [facility] WBC/HPF 0-5 0 - 5 /HPF 06/21/2017 10:11 AM CDT [facility] RBC/HPF 0-5 0 - 5 /HPF 06/21/2017 10:11 AM CDT [facility] EPI/HPF FEW /HPF 06/21/2017 10:11 AM CDT [facility] CULTURE & SENSITIVITY INDICATED? CULTURE IS NOT INDICATED 06/21/2017 10:11 AM CDT [facility] 06/21/2017 9:25 AM CDT 06/21/2017 9:33 AM CDT us Generic Conversion Md [facility] URINE ORDERABLES Final Result Performing Organization Address City/[facility]/ZIP Co de Phone Number [facility] [address] [place] [address], [place] [phone] * CHORIONIC GONADOTROPIN HCG QL (06/21/2017 8:20 AM CDT) [facility] PREG SCREEN-SERUM NEGATIVE NEGATIVE 06/21/2017 8:55 AM CDT [facility] 06/21/2017 8:20 AM CDT 06/21/2017 8:32 AM CDT us Generic Conversion Md [facility] LABORATORY Final R esult [facility] [address] [place] [address], [place] [phone] * LIPASE (06/21/2017 8:20 AM CDT) [facility] LIPASE 15 8.0 - 78.0 UNITS/L 06/21/2017 8:59 AM CDT [facility] SERUM OR PLASMA SPECIMEN / Unknown 06/21/2017 8:20 AM CDT 06/21/2017 8:32 AM CDT us Generic Conversion Md [facility] LABORAT[facility] Final R esult [facility] [address] [place] [address], [place] [phone] * (ABNORMAL) COMPREHENSIVE METABOLIC PANEL (06/21/2017 8:20 AM CDT) Pathologist [facility] GLUCOSE 93 70 - 105 MG/DL 06/21/2017 8:59 AM CDT [facility] BUN 13 7.0 - 18.7 MG/DL 06/21/2017 8:59 AM T [facility] CREATININE S/P/B 0.75 0.57 - 1.11 MG/DL 06/21/2017 8:59 AM T [facility] SODIUM S/P/B 137 136 - 145 MMOL/L 06/21/2017 8:59 AM T [facility] POTASSIUM S/P/B 3.8 3.5 - 5.1 MMOL/L 06/21/2017 8:59 AM T [facility] CHLORIDE S/P/B 110(H) 98 - 107 MMOL/L 06/21/2017 8:59 AM T [facility] CO2 18.0(L) 22 - 29 MMOL/L 06/21/2017 8:59 AM T [facility] ANION GAP 12.8 10.0 - 24.0 MMOL/L 06/21/2017 8:59 AM T [facility] OSMOLALITY (CALC) 274 271 - 290 MOSM/KG 06/21/2017 8:59 AM T [facility] CALCIUM S/P/B 8.8 8.4 - 10.2 MG/DL 06/21/2017 8:59 AM T [facility] BILIRUBIN TOTAL S/P/B 0.5 0.2 - 1.2 MG/DL 06/21/2017 8:59 AM T [facility] TOTAL PROTEIN S/P/B 6.8 6.4 - 8.3 G/DL 06/21/2017 8:59 AM [facility] ALBUMIN S/P/B 3.9 3.5 - 5.0 G/DL 06/21/2017 8:59 AM T [facility] AST 18 5 - 34 U/L 06/21/2017 8:59 AM [facility] ALT 15 6 - 55 U/L 06/21/2017 8:59 AM [facility] ALKALINE PHOSPHATASE S/P/B 72 30 - 115 U/L 06/21/2017 8:59 AM [facility] BUN CREATININE RATIO 17.3 6.0 - 26.0 06/21/2017 8:59 AM [facility] A/G RATIO 1.3 1.1 - 1.9 RATIO 06/21/2017 8:59 AM [facility] EGFR NON-AFR. AMER. >60 >60 ML/MIN/1.7 3 M2 06/21/2017 8:59 AM [facility] Comment: GFR Reference Range:Kidney Failure - <15mL/min ?Chronic Kidney Disease - <60mL/min ?? Normal Kidney Function - >60mL/min ?? GFR calculation is not recommended forPatients less than 18 years or greater than70 years as per the national Kidney Foundation.If the patient is -[place], multiply results by 1.21 06/21/2017 8:20 AM CDT 06/21/2017 8:32 AM CDT us Generic Conversion Md [facility] LAB[facility] Final R esult [facility] [address] [place] [address], [place] [phone] * (ABNORMAL) CBC W/DIFF AUTOMATED (06/21/2017 8:20 AM CDT) [facility] Signature WBC 5.7 4.4 - 11.0 x10'3/uL 06/21/2017 8:38 AM CDT [facility] RBC 5.03 4.50 - 5.10 x10'6/uL 06/21/2017 8:38 AM CDT [facility] HGB 15.0 12.3 - 15.3 G/DL 06/21/2017 8:38 AM T [facility] HCT 42.5 35.9 - 44.6 % 06/21/2017 8:38 AM CDT [facility] MCV 84.5 80.0 - 96.0 FL 06/21/2017 8:38 AM T [facility] MCH 29.8 25.3 - 30.9 PG 06/21/2017 8:38 AM CDT [facility] MCHC 35.3(H) 31.0 - 34.1 G/DL 06/21/2017 8:38 AM T [facility] RDW 12.2(L) 12.4 - 15.1 % 06/21/2017 8:38 AM CDT [facility] PLT 206 151 - 353 x10'3/uL 06/21/2017 8:38 AM T [facility] MPV 9.1(L) 9.6 - 12.0 FL 06/21/2017 8:38 AM T [facility] RBC MORPHOLOGY NORMAL 06/21/2017 8:38 AM T [facility] PLT MORPH. NORMAL 06/21/2017 8:38 AM CDT [facility] WBC MORPHOLOGY NORMAL 06/21/2017 8:38 AM CDT [facility] LYMPHOCYTES % 14.5(L) 15.8 - 45.0 % 06/21/2017 8:38 AM CDT [facility] NEUTROPHILS % 72.4(H) 42.1 - 71.9 % 06/21/2017 8:38 AM CDT [facility] MONOCYTES % 11.8 5.7 - 12.5 % 06/21/2017 8:38 AM CDT [facility] EOSINOPHILS 0.9 0.0 - 5.6 % 06/21/2017 8:38 AM CDT [facility] BASOPHILS 0.2 0.0 - 1.3 % 06/21/2017 8:38 AM T [facility] ABS. NEUTROPHILS TOTAL 4.10 1.40 - 6.00 x10'3/uL 06/21/2017 8:38 AM CDT [facility] IMMATURE GRANS % 0.2 0.0 - 0.5 % 06/21/2017 8:38 AM CDT [facility] ABS. LYMPHOCYTES 0.82 0.80 - 4.70 x10'3/uL 06/21/2017 8:38 AM T [facility] 06/21/2017 8:20 AM CDT 06/21/2017 8:32 AM CDT us Generic Conversion Md [facility] Final R esult [facility] [address] [place] [address], * ROTAVIRUS AG, EIA (06/21/2017 8:00 AM CDT) ROTAVIRUS (STOOL) NEGATIVE NEGATIVE 06/21/2017 10:34 AM CDT [facility] 06/21/2017 8:00 AM CDT 06/21/2017 10:17 AM CDT us Generic Conversion Md [facility] MICROBIOLOGY - GENERAL ORDERABLES Final Result [facility] [address] [place] [address], [place] [phone] * O&P CONC&SMEAR TO REF LAB (06/21/2017 8:00 AM CDT) SPECIMEN SOURCE STOOL 8 7:58 AM CDT [facility] O & P EXAMINATION (STOOL) REPORT 06/28/2017 8:25 PM CDT [facility] MARYLU JOHN Comment: Ova and Parasites, Concentrate and Permanent SmearExamination for Ova and ParasitesSOURCE : STOOLResult/Comment:NO OVA AND PARASITES SEEN.Reference Range: ??No Ova and Parasites seenRoutine Ova and Parasite Exam may not detect someparasites that occasionally cause diarrheal illness.Test code(s) 72110O[45698](Cryptosporidium Ag, DFA)and/or 08468A[66351] (Cyclospora and Isospora Exam)may be ordered to detect these parasites. One negativesample does not necessarily rule out the presence ofa parasitic infection.Assay performed by wet mount after concentration.Parasite Exam, Trichrome StainSOURCE : STOOLResult/Comment:NO OVA AND PARASITES SEEN.Routine Ova and Parasite Exam may not detect someparasites that occasionally cause diarrheal illness.Test code(s) 94251D[20771](Cryptosporidium Ag, DFA)and/or 36969V[30487] (Cyclospora and Isospora Exam)may be ordered to detect these parasites. One negativesample does not necessarily rule out the presence ofa parasitic infection.Test Performed by Joaquina Hughes,[facility],[address] [place] [id number] Emanuel M.D., Ph.D., Director of [phone], CLIA [id number] STOOL SPECIMEN / Unknown 06/21/2017 8:00 AM CDT 06/21/2017 8:06 AM CDT us Generic Conversion Md [facility] MICROBIOLOGY - GENERAL ORDERABLES Final Result [employer] LANIE ROBERTS [address] [place] [address], [place] [phone] [facility] [address] [place] [address], [place] [phone] * (ABNORMAL) STOOL FOR WBC (06/21/2017 8:00 AM CDT) STOOL WBC LACTOFERRIN POSITIVE( A) NEGATIVE 06/21/2017 8:29 AM CDT [facility] 06/21/2017 8:00 AM CDT 06/21/2017 8:06 AM CDT us Generic Conversion Md [facility] BODY FLUIDS AND STOOLS ORDERABLES Final Result Performing Organization Address City/[facility]/ZIP Co de Phone Number [facility] [address] [place] [address], [place] [phone] * CRYPTOSPOR/GIARDIA AG, EIA (06/21/2017 8:00 AM CDT) GIARDIA ANTIGEN (STOOL) NEGATIVE NEGATIVE 06/21/2017 4:22 PM CDT [facility] CRYPTOSPOR AG (STOOL) NEGATIVE NEGATIVE 06/21/2017 4:22 PM CDT [facility] 06/21/2017 8:00 AM CDT 06/21/2017 8:06 AM CDT us Generic Conversion Md [facility] BODY FLUIDS AND STOOLS ORDERABLES Final Result [facility] [address] [place] [address], [place] [phone] * Stool Culture (06/21/2017 8:00 AM CDT) SPEC DESCRIPTION STOOL 06/21/2017 7:57 AM CDT [facility] SPECIAL REQUESTS NO SPECIAL REQUEST 06/21/2017 7:57 AM CDT [facility] CULTURE RESULT NEGATIVE FOR SHIGA TOXIN 1 AND 2 06/24/2017 7:46 AM CDT [facility] CULTURE RESULT NO ENTERIC PATHOGENS ISOLATED 06/24/2017 7:46 AM CDT [facility] CULTURE RESULT NOTE: STOOL CULTURES ARE ROUTINELY SCREENED FOR SALMONELLA,SH IGELLA,YERSIN IA,AEROMONAS, PLESIOMONAS,C AMPYLOBA CTER,E.COLI 0157,OVERGROW THS OF S.AUREUS,YEAS T AND P. AERUGINOSA 06/24/2017 7:46 AM CDT [facility] STOOL SPECIMEN / Unknown 06/21/2017 8:00 AM CDT 06/21/2017 8:05 AM CDT us Generic Conversion Md [facility] MICROBIOLOGY - GENERAL ORDERABLES Final Result [facility] [address] [place] [address], [place] [phone] [facility] [address] [place] [address], [place] [phone] * (ABNORMAL) OCCULT BLOOD, FECES (06/21/2017 8:00 AM CDT) OCCULT BLOOD FECAL POSITIVE(A ) NEGATIVE 06/21/2017 8:41 AM CDT [facility] 06/21/2017 8:00 AM CDT 06/21/2017 8:05 AM CDT us Generic Conversion Md [facility] BODY FLUIDS AND STOOLS ORDERABLES Final Result [facility] [address] [place] [address], [place] [phone] * CLOSTRIDIUM DIFFICILE (06/21/2017 8:00 AM CDT) [facility] MOLECULAR ASSAY NEGATIVE NEGATIVE 06/21/2017 9:14 AM CDT [facility] Comment: NOTE: C. difficile molecular tests are highly sensitive. ??Empiric therapy for patients with diarrhea and negative C. difficile test should be avoided. ?? Submission of more than one specimen within 7 days is not recommended. ?? Molecular tests for C. difficile are highly sensitive and a negative result does not need to be confirmed by a second specimen. 06/21/2017 8:00 AM CDT 06/21/2017 8:05 AM CDT us Generic Conversion Md [facility] BODY FLUIDS AND STOOLS ORDERABLES Final Result Performing Organization Address [facility] Co de Phone Number [facility] [address] [place] [address], [place] [phone] documented in this encounter Visit Diagnoses Diagnosis Nausea with vomiting documented in this encounter
--- OUTSIDE RECORDS SUMMARY | 2024-04-06 17:21 | XMS_ITS | Encounter Summary ---
Author Organization [facility] Address [address] [place] [address]. [place] [address] [place] [address] Care Team Providers Care Loan Examiner Name Role Phone Lorelei Davis PA-C Primary Care Provider +1- [phone] Encounter Details Date Type Department Care Team (Latest Contact Info) Description 07/02/2019 10:00 AM CDT - 07/02/2019 11:59 PM CDT Hospital Encounter [facility] [address] [place], [place] [id number] Lorelei Davis PA-C [address] [place], [place] [id number] Discharge Disposition: Home or Self Care (Routine [...] have Coronavirus / COVID-19? No / Unsure 07/02/2019 10:02 AM CDT documented as of this encounter Plan of Treatment Not on file documented as of this encounter Procedures Procedure Name Priority Date/Time Associated Diagnosis Comments HCG QUANT (SERUM)-CHORIONIC GONADOTROPIN Routine 07/02/2019 10:10 AM CDT (HHS/HCC) Abdominal tenderness, unspecified site documented in this encounter Results * (ABNORMAL) HCG QUANT (SERUM)-CHORIONIC GONADOTROPIN (07/02/2019 10:10 AM CDT) HCG QUANTITATIVE 22,490(H) 0 - 6 MIU/ML 07/02/2019 11:08 AM CDT [facility] Comment: WEEKS OF ? REFERENCE RANGES [...] - 100,000 07/02/2019 10:1 0 AM CDT Lorelei Davis PA-C LABORATORY Final Resu lt Performing Organization Address City/State/[facility] Co de Phone Number [facility] [address] [place] [address], documented in this encounter Visit Diagnoses Diagnosis (HHS/HCC) state, incidental Abdominal tenderness, unspecified site documented in this encounter Care Teams Loan Examiner Relationship Specialty Start Date End Date Lorelei Davis PA-C PCP - General NURSE PRACTITIONER 06/24/19 documented as of this encounter
--- OUTSIDE RECORDS SUMMARY | 2024-04-06 17:21 | XMS_ITS | Encounter Summary ---
Author Organization [facility] Address [address] [place] [address]. [place], [place] [address] [place] [address] Care Team Providers Care Spool Maker Name Role Phone Lorelei Davis PA-C Primary Care Provider +1- [phone] Encounter Details Date Type Department Care Team (Latest Contact Info) Description 07/02/2019 Travel Social History Tobacco Use Types Packs/Day [...] on filedocumented in this encounter Care Teams Spool Maker Relationship Specialty Start Date End Date Lorelei Davis PA-C PCP - General NURSE PRACTITIONER 06/24/19 documented as of this encounter
--- OUTSIDE RECORDS SUMMARY | 2024-04-06 17:21 | XMS_ITS | Encounter Summary ---
Author Organization [facility] Address [address] [place] [address]. [place], [place] [address] [place] [address] Care Team Providers Care Accounting System Expert Name Role Phone Lorelei Davis PA-C Primary Care Provider +1- [phone] Encounter Details Date Type Department Care Team (Latest Contact Info) Description 08/27/2019 Travel Social History Tobacco Use Types Packs/Day [...] on filedocumented in this encounter Care Teams Accounting System Expert Relationship Specialty Start Date End Date Lorelei Davis PA-C PCP - General NURSE PRACTITIONER 06/24/19 documented as of this encounter
--- OUTSIDE RECORDS SUMMARY | 2024-04-06 17:21 | XMS_ITS | Encounter Summary ---
Author Organization [facility] Address [address] [place] [address]. [place], [place] [id number] [place] [id number] Care Team Providers Care Belly Packer Name Role Phone Lorelei Davis PA-C Primary Care Provider [phone]- [phone] Encounter Details Date Type Department Care Team (Latest Contact Info) Description 12/01/2019 Travel Social History Tobacco Use Types Packs/Day [...] have Coronavirus / COVID-19? No / Unsure 12/01/2019 6:58 AM CDT documented as of this encounter Plan of Treatment Not on file documented as of this encounter Visit Diagnoses Not on filedocumented in this encounter Care Teams Belly Packer Relationship Specialty Start Date End Date Lorelei Davis PA-C PCP - General NURSE PRACTITIONER 06/24/19 documented as of this encounter
--- OUTSIDE RECORDS SUMMARY | 2024-04-06 17:21 | XMS_ITS | Encounter Summary ---
Author Organization [facility] Address [address] [place] [address]. [place] [address] [place] [address] Care Team Providers Care Shirt Sewer Name Role Phone Lorelei Davis PA-C Primary Care Provider +1- [phone] Reason for Visit * Reason Comments NST Leaking Fluid Encounter Details Date Type Department Care Team (Latest Contact Info) Description 02/08/2020 7:29 PM CONTRACT SHELTERED WORKSHOP SUPERVISOR - 02/08/2020 9:28 PM CONTRACT SHELTERED WORKSHOP SUPERVISOR Hospital Encounter [facility] Labor & Delivery [address] [place], [place] [address] Tammy Spann DO [address] [place], [place] [id number] NST (Leaking Fluid) Discharge Disposition: Home or Self Care (Routine [...] COVID-19? No / Unsure 02/08/2020 7:36 PM CONTRACT SHELTERED WORKSHOP SUPERVISOR documented as of this encounter Last Filed Vital Signs Vital Sign Reading Time Taken Comments Blood Pressure 124/84 02/08/2020 7:36 PM CONTRACT SHELTERED WORKSHOP SUPERVISOR Pulse 104 02/08/2020 7:36 PM CONTRACT SHELTERED WORKSHOP SUPERVISOR Temperature 36.6 ??C (97.8 ??F) 02/08/2020 7:45 PM CS T Respiratory Rate 18 02/08/2020 7:45 PM CONTRACT SHELTERED WORKSHOP SUPERVISOR Oxygen Saturation - - Inhaled Oxygen Concentration - - Weight - - Height - - Body Mass Index - - documented in this encounter Discharge Instructions * Discharge Instructions* Lali Mcneil RN - 02/08/2020 9:18 PM CONTRACT SHELTERED WORKSHOP SUPERVISOR Discharge Instructions After NST Patient Information Call the [facility] at [phone] or return to the [facility] if: * You experience decreased movement. * Your water breaks. Call your physician or the [facility] if: * You are experiencing headaches, visual disturbances, or epigastric discomfort. * You are less than 37 weeks gestation and experiencing contractions less than 10 minutes apart for1 hour. * You are greater than 37 weeks gestation and experiencing contractions 5-10 minutes apart for 1 hour and are increasingly getting stronger in length. * Keep your next scheduled clinic visit. Additional Instructions Given: Discharge Instructions After NST Patient Information Call the [facility] [place] at [phone] or return to the [facility] if: * You experience decreased movement. * Your water breaks. Call your physician or the [facility] if: * You are experiencing headaches, visual disturbances, or epigastric discomfort. * You are less than 37 weeks gestation and experiencing contractions less than 10 minutes apart for1 hour. * You are greater than 37 weeks gestation and experiencing contractions 5-10 minutes apart for 1 hour and are increasingly getting stronger in length. * Keep your next scheduled clinic visit. Additional Instructions Given: RACT SHELTERED WORKSHOP SUPERVISOR documented in this encounter Medications at Time of Discharge sertraline 100 MG tablet Take 200 mg by mouth daily. aspirin EC (ASPIRIN EC) 81 MG tablet Take 162 mg by mouth daily. 02/19/2020 vitamin 27-1 MG Tab tablet Take 1 tablet by mouth daily. 06/09/2020 documented as of this encounter Plan of Treatment Not on file documented as of this encounter Procedures Procedure Name Priority Date/Time Associated Diagnosis Comments PLACENTAL ALPHA MICROGLOBULIN-1 Routine 02/08/2020 7:55 PM CONTRACT SHELTERED WORKSHOP SUPERVISOR ([facility]) NONSTRESS TEST Routine 02/08/2020 7:42 PM CONTRACT SHELTERED WORKSHOP SUPERVISOR (HHS/HCC) documented in this encounter Results * PLACENTAL ALPHA MICROGLOBULIN-1 (02/08/2020 7:55 PM CONTRACT SHELTERED WORKSHOP SUPERVISOR) PLACENTAL A-MICROGLOBULI N 1 NEGATIVE NEGATIVE 02/08/2020 8:33 PM CONTRACT SHELTERED WORKSHOP SUPERVISOR [facility] VAGINAL STRUCTURE / Unknown 02/08/2020 7:55 PM CONTRACT SHELTERED WORKSHOP SUPERVISOR us Tammy Jaxch DO BODY FLUIDS AND STOOLS ORDE GRACE Final Result [facility] [address] [place] [address], documented in this encounter Visit Diagnoses Diagnosis (HHS/HCC)- Primary state, incidental documented in this encounter Care Teams Shirt Sewer Relationship Specialty Start Date End Date Lorelei Davis PA-C PCP - General NURSE PRACTITIONER 06/24/19 documented as of this encounter
--- OUTSIDE RECORDS SUMMARY | 2024-04-06 17:21 | XMS_ITS | Encounter Summary ---
Author Organization [facility] Address [address] [place] [address]. [place] [address] [place] [address] Care Team Providers Care Pluck Separator Name Role Phone Lorelei Davis PA-C Primary Care Provider +1- [phone] Encounter Details Date Type Department Care Team (Late st Contact Info) Description 12/12/2019 Orders Only [facility] [address] [place] [address] Gretchen Dove, [facility] [address] [place] [address] Social History Tobacco Use Types [...] - 99 mg/dL 12/12/2019 7:38 AM CDT [facility] AMOUNT GIVEN 100 g 12/12/2019 7:38 AM CDT [facility] PATHOLOGIST COMMENT 12/11 7:38 AM CDT [facility] Comment: ?? INTERPRETATION CRITERIA : ?CRITERIA FOR THE DIAGNOSIS OF ?GESTATIONAL DIABETES GLUCOSE TOLERANCE: ?FASTING GLUCOSE > 95 ?1HR GLUCOSE ? >180 ?2HR GLUCOSE ? >155 ?3HR GLUCOSE ? >140 ?NOTE:TWO OR MORE LEVELS HIGHER THAN ? DIAGNOSTIC CRITERIA INDICATE ?GESTATIONAL DIABETES. ?(REFERENCES:NATIONAL INSTITUTES OF HEALTH, ? [place] [employer].) 12/12/2019 7:16 AM CDT G[facility] Final Result [facility] [address] [place] [address], documented in this encounter Visit Diagnoses Diagnosis Abnormal maternal glucose tolerance, antepartum (HHS/HCC)- Primary Abnormal maternal glucose tolerance, antepartum documented in this encounter Care Teams Pluck Separator Relationship Specialty Start Date End Date Lorelei Davis PA-C PCP - General NURSE PRACTITIONER 06/24/19 documented as of this encounter
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
--- OUTSIDE RECORDS SUMMARY | 2024-04-06 17:21 | XMS_ITS | Encounter Summary ---
Author Organization [facility] Address [address] [place] [address]. [place] [address] [place] [address] Care Team Providers Care Client Support Manager Name Role Phone oLrelei Davis PA-C Primary Care Provider +1- [phone] Reason for Referral * Imaging (Routine) - Closed Specialty Diagnoses / Procedures Referred By Contac t Referred To Contact RADIOLOGY Diagnoses (HHS/HCC) Abdominal cramping Procedures [facility] Lorelei Davis PA-C Phone: tel: fax: Referral ID Status Reason Start Date Expiration Date Visits Re quested Visits Authorized [id number] Closed 07/02/2019 08/01/2020 1 1 Reason for Visit * Imaging (Routine) - Closed Specialty Diagnoses / Procedures Referred By Contac t Referred To Contact RADIOLOGY Diagnoses (HHS/HCC) Abdominal cramping Procedures [facility] Lorelei Davsi PA-C Phone: tel: fax: Referral ID Status Reason Start Date Expiration Date Visits Re quested Visits Authorized [id number] Closed 07/02/2019 08/01/2020 1 1 Encounter Details Date Type Department Care Team (Latest Contact Info) Description 07/04/2019 11:51 AM CDT - 07/04/2019 11:59 PM CDT Hospital Encounter [facility] [address] [place] [address] Lorelei Davis PA-C [address] [place] [address] Discharge Disposition: Home or Self Care (Routine [...] Procedure Name Priority Date/Time Associated Diagnosis Comments [employer] [facility] TA Routine 07/04/2019 12:51 PM CDT ([facility]) Abdominal cramping documented in this encounter Results * [employer] [facility] TA (07/04/2019 12:51 PM CDT) Anatomical Region Laterality Modality Abdomen Ultrasound 07/04/2019 3:33 PM CDT Impressions 07/04/2019 3:40 PM CDT IMPRESSION: IUP with pole and yolk sac. Ultrasound age 6 weeks 0 days, estimated date of confinement 2020. heart motion 108 bpm. Small possible subchorionic hemorrhage inferior to the gestational sac measuring 16 x 5 x 12 mm. Small cyst right ovary measuring 21 mm. Right ovary measures 29 x 27 x 22 mm. Left ovary not visualized. Interpreted By: Sergio Norton, 07/04/2019 3:33 PM Narrative 07/04/2019 3:40 PM CDT IMAGING STUDIES:[facility] TA ? DATE: 07/04/2019 11:54 AM INDICATION: Abdominal cramping ?? COMPARISON: No comparisons. TECHNIQUE: Examination performed by blacktop spreader using grayscale with color flow and spectral Doppler. Selected images submitted for interpretation. Worksheet completed. Endovaginal approach. Limited examination. Procedure Note Sergio Norton MD - 07/04/2019 IMAGING STUDIES:[facility] TA DATE: 07/04/2019 11:54 AM INDICATION: Abdominal cramping COMPARISON: No comparisons. TECHNIQUE: Examination performed by blacktop spreader using grayscalewith color flow and spectral Doppler. Selected images submitted for interpretation. Worksheet completed. Endovaginal approach. Limited examination. IMPRESSION: IUP with pole and yolk sac. Ultrasound age 6 weeks 0 days,estimated date of confinement 2020. heart motion 108 bpm. Smallpossible subchorionic hemorrhage inferior to the gestational sac measuring 16 x 5x 12 mm. Small cyst right ovary measuring 21 mm. Right ovary measures 29 x 27 x22 mm. Left ovary not visualized. Interpreted By: Sergio Norton, 07/04/2019 3:33 PM us Lorelei Davis PA-C ULTRASOUND Final Resu lt documented in this encounter Visit Diagnoses Diagnosis (HHS/HCC) state, incidental Abdominal cramping Abdominal pain, unspecified site documented in this encounter Care Teams Client Support Manager Relationship Specialty Start Date End Date Lorelei Davis PA-C PCP - General NURSE PRACTITIONER 06/24/19 documented as of this encounter
--- OUTSIDE RECORDS SUMMARY | 2024-04-06 17:21 | XMS_ITS | Encounter Summary ---
Author Organization [facility] Address [address] [place] [address]. [place], [place] [address] [place] [address] Care Team Providers Care Curling Machine Operator Name Role Phone Lorelei Davis PA-C Primary Care Provider +1- [phone] Encounter Details Date Type Department Care Team (Latest Contact Info) Description 06/24/2019 Travel Social History Tobacco Use Types Packs/Day [...] on filedocumented in this encounter Care Teams Curling Machine Operator Relationship Specialty Start Date End Date Lorelei Davis PA-C PCP - General NURSE PRACTITIONER 06/24/19 documented as of this encounter
--- OUTSIDE RECORDS SUMMARY | 2024-04-06 17:21 | XMS_ITS | Encounter Summary ---
Author Organization [facility] Address [address] [place] [address]. [place], [place] [address] [place] [address] Care Team Providers Care Equip Tech Name Role Phone Lorelei Davis PA-C Primary Care Provider +1- [phone] Encounter Details Date Type Department Care Team (Latest Contact Info) Description 12/03/2019 Travel Social History Tobacco Use Types Packs/Day [...] on filedocumented in this encounter Care Teams Equip Tech Relationship Specialty Start Date End Date Lorelei Davis PA-C PCP - General NURSE PRACTITIONER 06/24/19 documented as of this encounter
--- OUTSIDE RECORDS SUMMARY | 2024-04-06 17:21 | XMS_ITS | Encounter Summary ---
Author Organization [facility] Address [address] [place] [address]. [place], [place] [address] [place] [address] Care Team Providers Care Carpenter Helper Name Role Phone Unavailable Primary Care Provider Unavailabl e Encounter Details Date Type Department Care Team (Late st Contact Info) Description 04/17/2013 Abstract [facility] Emergency Room [address] [place], [place] [id number] Arnoldo Block MD [facility] [place], [place] [id number] Social History Tobacco Use Types Packs/Day Years Used Date Smoking Tobacco: Never Assessed Comments Unknown Sex and Gender Information Value Date Recorded Sex Assigned at Not on file Legal Sex Female 7:58 PM CDT Gender Identity Not on file Sexual Orientation Not on file documented as of this encounter Plan of Treatment Not on file documented as of this encounter Visit Diagnoses Diagnosis Closed trimalleolar fracture documented in this encounter
--- OUTSIDE RECORDS SUMMARY | 2024-04-06 17:21 | XMS_ITS | Encounter Summary ---
Author Organization [facility] Address [address] [place] [address]. [place], [place] [address] [place] [address] Care Team Providers Care Acquisition Editor Name Role Phone Unavailable Primary Care Provider Unavailabl e Encounter Details Date Type Department Care Team (Late st Contact Info) Description 01/20/2016 Abstract [facility] [address] [place], [place] [id number] Lucero Turner, SHOES HAND SEWER [address] [address] Social History Tobacco Use Types Packs/Day Years Used Date Smoking Tobacco: Never Assessed Comments Unknown Sex and Gender Information Value Date Recorded Sex Assigned at Not on file Legal Sex Female 7:58 PM CDT Gender Identity Not on file Sexual Orientation Not on file documented as of this encounter Plan of Treatment Not on file documented as of this encounter Visit Diagnoses Diagnosis Acute bronchitis documented in this encounter
--- OUTSIDE RECORDS SUMMARY | 2024-04-06 17:21 | XMS_ITS | Encounter Summary ---
Author Organization [facility] Address [address] [place] [address]. [place] [address] [place] [address] Care Team Providers Care Commercial Management Accountant Name Role Phone Lorelei Davis PA-C Primary Care Provider +1- [phone] Encounter Details Date Type Department Care Team (Latest Contact Info) Description 08/27/2019 7:36 AM CDT - 08/27/2019 11:59 PM CDT Hospital Encounter [facility] [address] [place] [address] Tammy Spann DO [address] [place] [address] Discharge Disposition: Home or Self Care (Routine [...] Comments HC GLUCOSE TOLERANCE ADDL SPEC Routine 08/27/2019 11:39 AM CDT GLUCOSE TOLERANCE 2 HR OB Routine 08/27/2019 10:37 AM CDT GLUCOSE TOLERANCE 1 HR OB Routine 08/27/2019 9:35 AM CDT GLUCOSE TOLERANCE TEST 3 HR Routine 08/27/2019 7:58 AM CDT Abnormal maternal glucose tolerance, antepartum (HHS/HCC) documented in this encounter Results * GLUCOSE TOLERANCE TEST, 3HR OB (08/27/2019 11:39 AM CDT) GLUCOSE 3 HR 63 mg/dL 08/27/2019 1:35 PM CDT [facility] 08/27/2019 11:3 9 AM CDT us Tammyheike Spann DO LABORATORY Final Resul t Performing Organization Address [facility]/ZIP Co de Phone Number [facility] [address] [place] [address], [place] [phone] * GLUCOSE TOLERANCE 2 HR OB (08/27/2019 10:37 AM CDT) GLUCOSE 2 HR 117 mg/dL 08/27/2019 11:05 AM CDT [facility] 08/27/2019 10:3 7 AM CDT us Tammyana Spann DO LABORATORY Final Resul t [facility] [address] [place] [address], [place] [phone] * GLUCOSE TOLERANCE 1 HR OB (08/27/2019 9:35 AM CDT) GLUCOSE 1 HR 111 mg/dL 08/27/2019 10:18 AM CDT [facility] 08/27/2019 9:35 AM CDT us Tammyheike Spann DO LABORATORY Final Resul t Performing Organization Address [facility] de Phone Number [facility] [address] [place] [address], * GLUCOSE TOLERANCE TEST 3 HR OB (08/27/2019 7:58 AM CDT) GLUCOSE FASTING 91 70 - 99 mg/dL 08/27/2019 8:22 AM CDT [facility] AMOUNT GIVEN 100 g 08/27/2019 8:22 AM CDT [facility] PATHOLOGIST COMMENT 08/26 8:22 AM CDT [facility] Comment: ?? INTERPRETATION CRITERIA : ?CRITERIA FOR THE DIAGNOSIS OF ?GESTATIONAL DIABETES GLUCOSE TOLERANCE: ?FASTING GLUCOSE > 95 ?1HR GLUCOSE ? >180 ?2HR GLUCOSE ? >155 ?3HR GLUCOSE ? >140 ?NOTE:TWO OR MORE LEVELS HIGHER THAN ? DIAGNOSTIC CRITERIA INDICATE ?GESTATIONAL DIABETES. ?(REFERENCES:NATIONAL INSTITUTES OF HEALTH, ? [place] DIABETES ASSOCIATION.) 08/27/2019 7:58 AM CDT Tammy Spann DO LABORATORY Final Resul t Performing Organization Address [facility] de Phone Number [facility] [address] [place] [address], documented in this encounter Visit Diagnoses Diagnosis Abnormal maternal glucose tolerance, antepartum (HHS/HCC) Abnormal maternal glucose tolerance, antepartum documented in this encounter Care Teams Commercial Management Accountant Relationship Specialty Start Date End Date Lorelei Davis PA-C PCP - General NURSE PRACTITIONER 06/24/19 documented as of this encounter
--- OUTSIDE RECORDS SUMMARY | 2024-04-06 17:21 | XMS_ITS | Encounter Summary ---
Author Organization [facility] Address [address] [place] [address]. [place] [address] [place] [address] Care Team Providers Care Environmental Engineering Professor Name Role Phone Lorelei Davis PA-C Primary Care Provider +1- [phone] Encounter Details Date Type Department Care Team (Latest Contact Info) Description 02/16/2020 Travel Social History Tobacco Use Types Packs/Day Years Used Date Smoking Tobacco: Never Smokeless Tobacco: Never Alcohol Use Standard Drinks/Week Comments Not Currently 0 (1 standard drink = 0.6 oz pur e alcohol) Comments Yes Sex and Gender Information Value Date Recorded Sex Assigned at Not on file Legal Sex Female 7:58 PM CDT Gender Identity Not on file Sexual Orientation Not on file COVID-19 Exposure Response Date Recorded In the last month, have you been in contact with someone who was confirmed or suspected to have Coronavirus / COVID-19? No / Unsure 02/08/2020 7:36 PM DIAGNOSTIC RADIOLOGIC TECHNOLOGIST documented as of this encounter Functional Status * Question Answer Date of Assessment Author Status Do you have serious difficulty walking or climbing stairs? No 02/16/2020 10:36 AM Kim Pyle RN Ac tive * Question Answer Date [...] Assessment Author Status No 02/16/2020 10:36 AM DIAGNOSTIC RADIOLOGIC TECHNOLOGIST Acti ve * RETIRED Are you blind or do you have serious difficulty seeing, even when wearing glasses? Answer Date of Assessment Author Status No 02/16/2020 10:36 AM DIAGNOSTIC RADIOLOGIC TECHNOLOGIST Acti ve * Do you have serious [...] on filedocumented in this encounter Care Teams Environmental Engineering Professor Relationship Specialty Start Date End Date Lorelei Davis PA-C PCP - General NURSE PRACTITIONER 06/24/19 documented as of this encounter
--- OUTSIDE RECORDS SUMMARY | 2024-04-06 17:21 | XMS_ITS | Encounter Summary ---
Author Organization [facility] Address [address] [place] [address]. [place] [address] [place] [address] Care Team Providers Care Breakdown Mill Operator Name Role Phone Lorelei Davis PA-C Primary Care Provider +1- [phone] Encounter Details Date Type Department Care Team (Latest Contact Info) Description 12/03/2019 6:00 AM CDT - 12/03/2019 11:59 PM CDT Hospital Encounter [facility] [address] [place], [place] [id number] Gretchen Dove, [facility] [address] [place] [address] Discharge Disposition: Home or Self [...] Procedure Name Priority Date/Time Associated Diagnosis Comments GLUCOSE 1 HR PP Routine 12/03/2019 7:02 AM CDT Unspecified screening ([facility]) SYPHILIS IGG AB Routine 12/03/2019 7:02 AM CDT Unspecified screening (HHS/HCC) HIV - RAPID Routine 12/03/2019 7:02 AM CDT Unspecified screening (HHS/HCC) ANTIBODY SCREEN Routine 12/03/2019 7:02 AM CDT Unspecified screening (HHS/HCC) CBC W/DIFF AUTOMATED Routine 12/03/2019 7:02 AM CDT Unspecified screening ([facility]/HCC) documented in this encounter Results * ANTIBODY SCREEN (12/03/2019 7:02 AM CDT) [facility] ANTIBODY SCREEN NEGATIVE 12/03/2019 8:37 AM CDT [facility] 12/03/2019 7:02 AM CDT Gretchen Dove [facility] BLOOD BANK TEST ORDERABLES F inal Result Performing Organization Address City/[facility]/ZIP Co de Phone Number [facility] [address] [place] [address], [place] [phone] * HIV - RAPID (12/03/2019 7:02 AM CDT) [facility] HIV RAPID NON-REACTIV E NON-REACTI VE 12/03/2019 7:59 AM CDT [facility] 12/03/2019 7:02 AM CDT Gretchen Dove [facility] Final Result [facility] [address] [place] [address], [place] [phone] * SYPHILIS IGG AB (12/03/2019 7:02 AM CDT) [facility] SYPHILIS IGG AB NON-REACTI VE NON-REACTI VE 12/03/2019 2:27 PM CDT [facility] 12/03/2019 7:02 AM CDT Gretchen Dove [facility]M LABORATORY Final Result [facility] [address] [place] [address], [place] [phone] * (ABNORMAL) CBC W/DIFF AUTOMATED (12/03/2019 7:02 AM CDT) WBC 10.5 4.4 - 11.0 x10'3/uL 12/03/2019 7:30 AM CDT [facility] RBC 3.92(L) 4.50 - 5.10 x10'6/uL 12/03/2019 7:30 AM CDT [facility] HGB 11.9(L) 12.3 - 15.3 G/DL 12/03/2019 7:30 AM CDT [facility] HCT 34.3(L) 35.9 - 44.6 % 12/03/2019 7:30 AM CDT [facility] MCV 87.5 80.0 - 96.0 FL 12/03/2019 7:30 AM CDT [facility] MCH 30.4 25.3 - 30.9 PG 12/03/2019 7:30 AM CDT [facility] MCHC 34.7(H) 31.0 - 34.1 G/DL 12/03/2019 7:30 AM CDT [facility] RDW 12.5 12.4 - 15.1 % 12/03/2019 7:30 AM CDT [facility] PLT 225 151 - 353 x10'3/uL 12/03/2019 7:30 AM CDT [facility] MPV 9.3(L) 9.6 - 12.0 FL 12/03/2019 7:30 AM CDT [facility] RBC MORPHOLOGY NORMAL 12/03/2019 7:30 AM CDT [facility] PLT MORPH. NORMAL 12/03/2019 7:30 AM CDT [facility] WBC MORPHOLOGY NORMAL 12/03/2019 7:30 AM CDT [facility] LYMPHOCYTES % 10.4(L) 15.8 - 45.0 % 12/03/2019 7:30 AM CDT [facility] NEUTROPHILS % 83.3(H) 42.1 - 71.9 % 12/03/2019 7:30 AM CDT [facility] MONOCYTES % 5.2(L) 5.7 - 12.5 % 12/03/2019 7:30 AM CDT [facility] EOSINOPHILS 0.5 0.0 - 5.6 % 12/03/2019 7:30 AM CDT [facility] BASOPHILS 0.2 0.0 - 1.3 % 12/03/2019 7:30 AM CDT [facility] ABS. NEUTROPHILS TOTAL 8.76(H) 1.40 - 6.00 x10'3/uL 12/03/2019 7:30 AM CDT [facility] IMMATURE GRANS % 0.4 0.0 - 0.5 % 12/03/2019 7:30 AM CDT [facility] ABS. LYMPHOCYTES 1.09 0.80 - 4.70 x10'3/uL 12/03/2019 7:30 AM CDT [facility] 12/03/2019 7:02 AM CDT us Gretchen Dove CNM LABORATORY Final Result [facility] [address] [place] [address], [place] [phone] * (ABNORMAL) GLUCOSE 1 HR PP (12/03/2019 7:02 AM CDT) GLUCOSE 1 HOUR POST DOSE 142(H) 70 - 130 MG/DL 12/03/2019 7:50 AM CDT [facility] 12/03/2019 7:02 AM CDT Gretchen TERRELL [facility] Final Result [facility] [address] [place] [address], documented in this encounter Visit Diagnoses Diagnosis Unspecified screening (HHS/HCC) Unspecified screening documented in this encounter Care Teams Breakdown Mill Operator Relationship Specialty Start Date End Date Lorelei Davis PA-C PCP - General NURSE PRACTITIONER 06/24/19 documented as of this encounter
--- OUTSIDE RECORDS SUMMARY | 2024-04-06 17:22 | XMS_ITS | Encounter Summary ---
Author Organization [facility] Address [address] [place] [address]. [place], [place] [address] [place] [address] Care Team Providers Care Medical Information Officer Name Role Phone Unavailable Primary Care Provider Unavailabl e Encounter Details Date Type Department Care Team (Late st Contact Info) Description 07/22/[address] [facility] [address] [place], [place] [id number] Samantha Weeks PA [facility] [place], [place] [id number] Social History Tobacco Use Types Packs/Day Years Used Date Smoking Tobacco: Never Assessed Comments Unknown Sex and Gender Information Value Date Recorded Sex Assigned at Not on file Legal Sex Female 7:58 PM CDT Gender Identity Not on file Sexual Orientation Not on file documented as of this encounter Plan of Treatment Not on file documented as of this encounter Visit Diagnoses Diagnosis Abdominal pain Abdominal pain, unspecified site documented in this encounter
--- OUTSIDE RECORDS SUMMARY | 2024-04-06 17:22 | XMS_ITS | Encounter Summary ---
Author Organization [facility] Address [address] [place] [address]. [place], [place] [address] [place] [address] Care Team Providers Care Concrete Block Molder Name Role Phone Unavailable Primary Care Provider Unavailabl e Encounter Details Date Type Department Care Team (Late st Contact Info) Description 07/10/2009 Abstract [facility] [address] [place], [place] [id number] Lorelei Davis, PAMikhailC [address] [place] [address] [address] [place] [address] Social History Tobacco Use Types [...]
--- OUTSIDE RECORDS SUMMARY | 2024-04-06 17:22 | XMS_ITS | Encounter Summary ---
Author Organization [facility] Address [address] [place] [address]. [place], [place] [address] [place] [address] Care Team Providers Care Dispatcher Maintenance Name Role Phone Unavailable Primary Care Provider Unavailabl e Encounter Details Date Type Department Care Team (Late st Contact Info) Description 07/25/2011 Abstract [facility] [address] [place], [place] [phone] Samantha Weeks PA [address] [place], [place] [id number] Social History Tobacco Use Types Packs/Day Years Used Date Smoking Tobacco: Never Assessed Comments Unknown Sex and Gender Information Value Date Recorded Sex Assigned at Not on file Legal Sex Female 7:58 PM CDT Gender Identity Not on file Sexual Orientation Not on file documented as of this encounter Plan of Treatment Not on file documented as of this encounter Visit Diagnoses Diagnosis Irregular menstrual cycle documented in this encounter
--- OUTSIDE RECORDS SUMMARY | 2024-04-06 17:22 | XMS_ITS | Encounter Summary ---
Author Organization [facility] Address [address] [place] [address]. [place] [address] [place] [address] Care Team Providers Care Synchronizer Name Role Phone Unavailable Primary Care Provider Unavailabl e Encounter Details Date Type Department Care Team (Latest Contact Info) Description 06/13/2012 Abstract [facility] Magdi Lu MD Social History Tobacco Use [...] Sign Reading Time Taken Comments Blood Pressure 122/68 06/13/2012 5:25 PM MANGANESE BREAKER Pulse 67 06/13/2012 5:25 PM MANGANESE BREAKER Temperature - - Respiratory Rate - - Oxygen Saturation - - Inhaled Oxygen Concentration - - Weight - - Height - - Body Mass Index - - documented in this encounter Progress Notes * Nereyda Andrews, JOANNA - 06/13/2012 5:15 PM CST Reason For Visit Acute Visit Chief Complaint 1. Cold Symptoms pt presents with c/o sinus congestion/pressure/drainage, bilateral ear pruritis, prod. cough, sore throat, fever at night, body aches, fatigue History of Present Illness Pt c/o sinus drainage and congestion, sore throat, cough, body aches, and fatigue for 4-5 days. Hasnot taken anything for these symptoms, states is on clomid trying to get and ovulated 2 days ago. Monalisa other concerns at this time. Review of Systems See HPI for pertinent positives. Active Problems 1. Acute Pharyngitis 462 2. Acute Sinusitis 461.9 Social History ?? Never A Smoker Current Meds 1. Ibuprofen 600 MG Oral Tablet; TAKE 1 TABLET EVERY 6 HOURS NEEDED; Therapy: 06May2012 to (Evaluate:14May2012) Requested for: 06May2012; Last Rx:06May2012 Ordered; For: Acute Pharyngitis (462); Rx By: Vivian Andrews; Dispense: 8 Days ; #:30 Tablet; Refill: 0; Verified Transmission to [facility] [id number] 2. MetFORMIN HCl TABS; Therapy: (Recorded:13Jun2012) to Recorded; Dispense: 0 Days ; #: Sufficient TABS; Refill: 0; Record; Last Updated By: Lalo Dinero Allergies 1. Yumi CAPS 2. Claritin CAPS Vitals Signs [Data Includes: Current Encounter] 13Jun2012 05:25PM Temperature: 99.4 F Heart Rate: 67 Respiration: 18 Systolic: 122 Diastolic: 68 O2 Saturation: 97 Unable to obtain weight: Patient refused Physical Exam Constitutional: no acute distress, well appearing and well nourished. Head/Face: frontal sinus tenderness, but normal. Eyes: conjunctiva and lids with no swelling, erythema or discharge. ENT: nasal discharge, nasal erythema, nasal edema, bulging TMs and oropharyngeal erythema, but no oropharyngeal exudate and no swollen tonsils. Pulmonary: no increased work of breathing or signs of respiratory distress and clear to auscultation. Cardiovascular: normal rate and rhythm, normal S1 and S2, without murmurs. Lymphatic: neck nodes without lymphadenopathy. Skin: no lesions. Psychiatric: oriented to person, place, and time and mood and affect normal. Assessment 1. Acute Sinusitis 461.9 2. Acute Pharyngitis 462 Plan 1. Amoxicillin 875 MG Oral Tablet; TAKE 1 TABLET EVERY 12 HOURS DAILY; Therapy: to (Evaluate:23Jun2012); Last Rx:13Jun2012 Ordered; For: Acute Sinusitis (461.9), Acute Pharyngitis (462); Rx By: Vivian Andrews; Dispense: 10 Days ; #:20 Tablet; Refill: 0; Send To: [facility] [address] Warm salt water gargles 3-4 times a day, you can take a plain over the counter robitussin, see yourprimray doctor if no better in 2-3 days. Signatures Electronically signed by : Vivian Andrews NP; Jun 13 2012 5:36PM (Author) ANESE BREAKER documented in this encounter Plan of Treatment Not on file documented as of this encounter Visit Diagnoses Not on filedocumented in this encounter
--- OUTSIDE RECORDS SUMMARY | 2024-04-06 17:22 | XMS_ITS | Encounter Summary ---
Author Organization [facility] Address [address] [place] [address]. [place] [address] [place] [address] Care Team Providers Care Big Data Software Engineer Name Role Phone Unavailable Primary Care Provider Unavailabl e Encounter Details Date Type Department Care Team (Late st Contact Info) Description 06/18/[address] [facility] [address] [place], [place] [id number] Elmo Sandoval MD [address] [place] [address] [place] [address] Social History Tobacco Use Types Packs/Day Years Used Date Smoking Tobacco: Never Assessed Comments Unknown Sex and Gender Information Value Date Recorded Sex Assigned at Not on file Legal Sex Female 7:58 PM CDT Gender Identity Not on file Sexual Orientation Not on file documented as of this encounter Plan of Treatment Not on file documented as of this encounter Visit Diagnoses Diagnosis Encounter for other general counseling or advice on contraception documented in this encounter
--- OUTSIDE RECORDS SUMMARY | 2024-04-06 17:22 | XMS_ITS | Encounter Summary ---
Author Organization [facility] Address [address] [place] [address]. [place] [address] [place] [address] Care Team Providers Care Manager Licensing Name Role Phone Unavailable Primary Care Provider Unavailabl e Encounter Details Date Type Department Care Team (Late st Contact Info) Description 04/18/[address] [facility] [address] [place], [place] [phone] Joss Ellis MD [address] [address] Social History Tobacco Use Types Packs/Day Years Used Date Smoking Tobacco: Never Assessed Comments Unknown Sex and Gender Information Value Date Recorded Sex Assigned at Not on file Legal Sex Female 7:58 PM CDT Gender Identity Not on file Sexual Orientation Not on file documented as of this encounter Plan of Treatment Not on file documented as of this encounter Visit Diagnoses Diagnosis Urinary tract infection Urinary tract infection, site not specified documented in this encounter
--- OUTSIDE RECORDS SUMMARY | 2024-04-06 17:22 | XMS_ITS | Encounter Summary ---
Author Organization [facility] Address [address] [place] [address]. [place] [address] [place] [address] Care Team Providers Care Supervisor [employer] Nut Farming Name Role Phone Unavailable Primary Care Provider Unavailabl e Encounter Details Date Type Department Care Team (Latest Contact Info) Description 12/31/2011 Abstract [facility] Fernandez Helton MD [address] [place] [address] Social History Tobacco Use Types Packs/Day Years Used Date Smoking Tobacco: Never Assessed Comments Unknown Sex and Gender Information Value Date Recorded Sex Assigned at Not on file Legal Sex Female 7:58 PM CDT Gender Identity Not on file Sexual Orientation Not on file documented as of this encounter Last Filed Vital Signs Vital Sign Reading Time Taken Comments Blood Pressure 118/72 12/31/2011 1:31 PM CDT Pulse 81 12/31/2011 1:31 PM CDT Temperature - - Respiratory Rate - - Oxygen Saturation - - Inhaled Oxygen Concentration - - Weight - - Height - - Body Mass Index - - documented in this encounter Progress Notes * Fernandez Helton MD - 12/31/2011 1:30 PM CDT Chief Complaint 1. Sore Throat 2. Cough c/o bilateral ear pain, sinus pressure/drainage/congestion, sore throat, had fever yesterday Reason For Visit Acute Visit History of Present Illness Pleasant 31 year old female with onset 2 weeks ago of sinus pressure, sinus congestion, sinus drainage, sore throat and ear discomfort. No other symptoms or complaints. Had fever yesterday, but is gone now, she says. Review of Systems See HPI for pertinent positives. Other Symptoms: none. Active Problems 1. Acute Sinusitis 461.9 Social History ?? Never A Smoker Allergies 1. Yumi CAPS 2. Claritin CAPS Vitals Signs [Data Includes: Current Encounter] [id number] 01:31PM Temperature: 97.4 F Heart Rate: 81 Respiration: 16 Systolic: 118 Diastolic: 72 O2 Saturation: 98 Physical Exam Constitutional General appearance: No acute distress, well appearing and well nourished. Eyes Conjunctiva and lids: No swelling, erythema or discharge. Pupils and irises: Equal, round and reactive to light. Ears, Nose, Mouth, and Throat External inspection of ears and nose: Normal. Otoscopic examination: Tympanic membranes translucent with normal light reflex. Canals patent without erythema. Oropharynx: Abnormal. Posterior pharyngeal sinus drainage. Pulmonary Respiratory effort: No increased work of breathing or signs of respiratory distress. Auscultation of lungs: Clear to auscultation. Cardiovascular Auscultation of heart: Normal rate and rhythm, normal S1 and S2, without murmurs. Lymphatic Palpation of lymph nodes in neck: No lymphadenopathy. Skin Skin and subcutaneous tissue: Normal without rashes or lesions. Neurologic Alert/ conversive. Psychiatric Mood and affect: Normal. Assessment 1. Acute Sinusitis 461.9 Plan 1. Azithromycin 250 MG Oral Tablet; TAKE 2 TABLETS ON DAY 1 THEN TAKE 1 TABLET A DAY FOR 4 DAYS; Therapy: [id number] to (Last Rx:[id number]) Follow up with your MD in 5 days, or sooner if needed. Signatures Electronically signed by : Fernandez Helton M.D.; Dec 31 2011 1:40PM (Author) L DRAFTSMAN documented in this encounter Plan of Treatment Not on file documented as of this encounter Visit Diagnoses Not on filedocumented in this encounter
--- OUTSIDE RECORDS SUMMARY | 2024-04-06 17:22 | XMS_ITS | Encounter Summary ---
Author Organization [facility] Address [address] [place] [address]. [place] [address] [place] [address] Care Team Providers Care Chest Painting And Sealing Supervisor Name Role Phone Unavailable Primary Care Provider Unavailabl e Encounter Details Date Type Department Care Team (Late st Contact Info) Description 07/12/[address] [facility] [address] [place], [place] [id number] Elmo Sandoval MD [address] [facility] [address] [place] [address] [place] [address] Social History Tobacco Use Types Packs/Day [...]
--- OUTSIDE RECORDS SUMMARY | 2024-04-06 17:22 | XMS_ITS | Encounter Summary ---
Author Organization [facility] Address [address] [place] [address]. [place] [address] [place] [address] Care Team Providers Care Form Designer Name Role Phone Unavailable Primary Care Provider Unavailabl e Encounter Details Date Type Department Care Team (Latest Contact Info) Description 07/08/2012 Abstract [facility] Sanjiv Emmanuel MD Social History Tobacco Use Types Packs/Day Years Used Date Smoking Tobacco: Never Assessed Comments Unknown Sex and Gender Information Value Date Recorded Sex Assigned at Not on file Legal Sex Female 7:58 PM CDT Gender Identity Not on file Sexual Orientation Not on file documented as of this encounter Last Filed Vital Signs Vital Sign Reading Time Taken Comments Blood Pressure 104/68 07/08/2012 12:50 PM CDT Pulse 103 07/08/2012 12:50 PM CDT Temperature - - Respiratory Rate - - Oxygen Saturation - - Inhaled Oxygen Concentration - - Weight 105.2 kg (232 lb) 07/08/2012 12:50 PM CDT Height - - Body Mass Index - - documented in this encounter Progress Notes * Sanjiv Emmanuel MD - 07/08/2012 12:25 PM CDT Reason For Visit Acute Visit Chief Complaint 1. Pain 2. Fever Pt presents to clinic today tearful with c/o all over body aches and a fever onset of last noc. Shests her back hurts and pain radiates into the front. She took Tylenol this AM. History of Present Illness NAUSEA, VOMITING, DIARRHEA, INTERMITTENT URINARY URGENCY OFF AND ON FOR 1 WEEK. FOR 1 DAY SHE'S HADDIFFUSE MID-LOWER ABDOMINAL PAIN THAT RADIATES INTO BACK. ALSO FOR ONE DAY SHE HAS FATIGUE, BODY ACHES, AND FEELS WEAK IN HER ARMS AND LEGS. ALSO, SHE SAYS SHE HAD A FEVER OF 103 LAST NIGHT AND 101 THIS AM. NO VAGINAL DISCHARGE. NO OTHER SX. LMP 2-3 WEEKS AGO. Active Problems 1. Acute Pharyngitis 462 2. Acute Sinusitis 461.9 Past Medical History 1. History of Polycystic Ovarian Syndrome 256.4 DDD IN LUMBAR SPINE, PCOD, IBS, CHOLECYSTECTOMY, TONSILECTOMY Surgical History 1. History of Cholecystectomy 2. History of Tonsillectomy Social History ?? Never A Smoker OCCASIONALLY DRINKS ETOH Current Meds 1. ClomiPHENE Citrate 50 MG Oral Tablet; Therapy: 25Jun2012 to Recorded; Dispense: 5 Days ; #:10 TABS; Refill: 0; Record; Last Updated By: Juli De Jesus 2. Cyclobenzaprine HCl 5 MG Oral Tablet; Therapy: 07Mar2012 to Recorded; Dispense: 7 Days ; #:21 TABS; Refill: 0; Record; Last Updated By: Juli De Jesus 3. Hydrocodone-Acetaminophen 5-500 MG Oral Tablet; Therapy: 20Apr2012 to Recorded; Dispense: 2 Days ; #:10 TABS; Refill: 0; Record; Last Updated By: Juli De Jesus 4. MetFORMIN HCl ER 750 MG Oral Tablet Extended Release 24 Hour; Therapy: 27Jun2012 to Recorded; Dispense: 30 Days ; #:60 TB24; Refill: 0; Record; Last Updated By: Juli De Jesus Allergies 1. Yumi CAPS 2. Claritin CAPS 3. Contrast Dye Vitals Signs [Data Includes: Current Encounter] 08Jul2012 12:50PM Temperature: 98.4 F Heart Rate: 103 Respiration: 18 Systolic: 104 Diastolic: 68 O2 Saturation: 98 Weight: 232 lb Results/Data wbc 4.38, HB 14.3, PLT 218, NA 140, K 3.4, CL 109, ICA 1.23, TCO2 21, GLU 106, BUN 10, CREAT 0.7, URINE PREG NEG, UA 1+ LEUKO, UA MICRO 0-5 WBC, 0-5 RBC, MOD EPI, MANY DAYNA. CULTURE PENDING. Physical Exam Constitutional: no acute distress, well appearing and well nourished. Head/Face: normal. Eyes: conjunctiva and lids with no swelling, erythema or discharge. ENT: no sinus tenderness or nasal discharge and no erythema or edema of the ears and nose, translucent with normal light reflex and canals patent without erythema, nasal mucosa, septum, and turbinates normal without edema or erythema and normal oropharynx without erythema, edema, exudate, or lesions. Pulmonary: no increased work of breathing or signs of respiratory distress and clear to auscultation. Cardiovascular: normal rate and rhythm, normal S1 and S2, without murmurs. Abdomen: NO MASSES OR ORGANOMEGALLY. MILD DIFFUSE TENDERNESS IN MID-LOWER ABDOMEN... MOST PROMINENTIN RLQ AND LLQ. NO GUARDING BUT MILD REBOUND TENDERNESS IN LLQ AND RLQ NOTED. Lymphatic: neck nodes without lymphadenopathy. Skin: no lesions. Musculoskeletal/Neurological: 2/4 DTRS AND 5/5 STRENGTH AND 5/5 SENSATION IN ARMS AND LEGS BILATERALLY. CN 2-12 GIT. Assessment 1. Abdominal Pain 789.00 2. Fatigue 780.79 3. Nausea With Vomiting 787.01 Plan 1. Sulfamethoxazole-TMP DS 800-160 MG Oral Tablet; 1 po bid for 10 days; Therapy: 08Jul2012 to (Last Rx:08Jul2012) Ordered; For: Abdominal Pain (789.00); Rx By: Sanjiv Emmanuel; Dispense: 0 Days ; #:20 Tablet; Refill: 0; Transmitted To: [facility] 2. Ondansetron 8 MG Oral Tablet Dispersible; ONE PO Q 12 HOURS PRN NAUSEA; Therapy: 08Jul2012 to (Last Rx:[id number]) Ordered; For: Nausea With Vomiting (787.01); Rx By: Sanjiv Emmanuel; Dispense: 0 Days ; #:5 Tablet Dispersible; Refill: 0; Transmitted To: [facility] 67524 3. *Urine Dip Siemens Machine Read Strip In Office Done: 08Jul2012 Ordered; For: Nausea With Vomiting (787.01); Ordered By: Sanjiv Emmanuel Perform: In Office Due: [id number]; Last Updated By: Maribeth Beck 4. *Urine Test In Office Done: 08Jul2012 Ordered; For: Nausea With Vomiting (787.01); Ordered By: Sanjiv Emmanuel Perform: In Office Due: 08Jul2012; Last Updated By: Maribeth Beck 5. BMP - [facility]PC Done: 08Jul2012 Ordered; For: Nausea With Vomiting (787.01); Ordered By: Sanjiv Emmanuel Perform: [facility] Due: 15Jul2012; Last Updated By: Maribeth Beck 6. Complete Blood Count CBC - [facility] Done: 08Jul2012 Ordered; For: Nausea With Vomiting (787.01); Ordered By: Sanjiv Emmanuel Perform: [facility] Due: 15Jul2012; Last Updated By: Maribeth Beck 7. URINE CULTURE Requested for: 08Jul2012 Ordered; For: Nausea With Vomiting (787.01); Ordered By: Sanjiv Emmanuel Perform: [facility] Due: 18Jul2012 1) PUSH ORAL FLUIDS (I.E. PEDIALYTE, GATORADE). 2) I RECCOMMENDED THAT YOU GOTO THE EMERGENCY ROOM NOW BUT YOU DECLINED. GOTO THE EMERGENCY ROOM IFYOU CHANGE YOUR MIND (OR IF SYMPTOMS WORSEN/CHANGE). OTHERWISE, SEE YOUR DOCTOR IN 1-2 DAYS FOR A RECHECK Discussion/Summary ? ETILOGY OF PATIENT'S SX. POSSIBLY VIRAL SYNDRONE +/- UTI BUT THIS UNCERTAIN. WITH HER ABDOMINAL PAIN/TENDERNESS I RECCOMMENDED ER NOW FOR FURTHER EVALUATION (I.E. CT SCAN). PT. REFUSES ER AT THIS TIME AND UNDERSTANDS RISKS (I.E. SHE HAS A MORE SEVERE ILLNESS THAT VIRAL/UTI).. THEREFORE, I'LL RX FOR VIRAL SYNDROME VS. UTI ABOVE. PT. TOLD TO GOTO ER IF SHE CHANGES MIND (OR IF SX WORSEN/CHANGE). PT. COMMUNICATED UNDERSTANDING. I NOTIFED DR. ARMAS THAT PT. REFUSES ER AT THIS TIME BUT THAT I RECCOMMENDED ER (AND HOPEFULLY SHE'LL GO LATER). PT. TOLD SHE NEEDS TO HAVE WBC, GLU, K, RECHECKED IN NEAR FUTURE BY PCP. Signatures Electronically signed by : Sanjiv Emmanuel M.D.; Jul 08 2012 1:56PM (Author) LOGY NURSE NAVIGATOR documented in this encounter Plan of Treatment Not on file documented as of this encounter Visit Diagnoses Not on filedocumented in this encounter
--- OUTSIDE RECORDS SUMMARY | 2024-04-06 17:22 | XMS_ITS | Encounter Summary ---
Author Organization [facility] Address [address] [place] [address]. [place], [place] [address] [place] [address] Care Team Providers Care Sales Order Processor Name Role Phone Unavailable Primary Care Provider Unavailabl e Encounter Details Date Type Department Care Team (Late st Contact Info) Description 04/12/2009 Abstract [facility] CONVERSION [address] [place] [address] Sanjiv Emmanuel MD Social History Tobacco Use [...]
--- OUTSIDE RECORDS SUMMARY | 2024-04-06 17:22 | XMS_ITS | Encounter Summary ---
Author Organization [facility] Address [address] [place] [address]. [place], [place] [address] [place] [address] Care Team Providers Care Soil Conservation Technician Name Role Phone Unavailable Primary Care Provider Unavailabl e Encounter Details Date Type Department Care Team (Late st Contact Info) Description 07/08/[address] [facility] [address] [place] [address] Sanjiv Emmanuel MD Social History Tobacco Use [...] as of this encounter Visit Diagnoses Diagnosis Nausea with vomiting documented in this encounter
--- OUTSIDE RECORDS SUMMARY | 2024-04-06 17:22 | XMS_ITS | Encounter Summary ---
Author Organization [facility] Address [address] [place] [address]. [place] [address] [place] [address] Care Team Providers Care Filling Operator Name Role Phone Unavailable Primary Care Provider Unavailabl e Encounter Details Date Type Department Care Team (Latest Contact Info) Description 05/06/2012 Abstract [facility] Medical [facility] Walter Celeste L, DO [address] [place], [place] [id number] Social History Tobacco Use Types Packs/Day Years Used Date Smoking Tobacco: Never Assessed Comments Unknown Sex and Gender Information Value Date Recorded Sex Assigned at Not on file Legal Sex Female 7:58 PM CDT Gender Identity Not on file Sexual Orientation Not on file documented as of this encounter Last Filed Vital Signs Vital Sign Reading Time Taken Comments Blood Pressure - - Pulse 102 05/06/2012 7:21 AM SOLAR WATER HEATER INSTALLER Temperature - - Respiratory Rate - - Oxygen Saturation - - Inhaled Oxygen Concentration - - Weight - - Height - - Body Mass Index - - documented in this encounter Progress Notes * JOANNA Rhodes - 05/06/2012 7:15 AM CST Chief Complaint 1. Sore Throat sore throat with fatigue,pt on Amoxicillan 875mg bid for the past 2 days, Active Problems 1. Acute Sinusitis 461.9 Social History ?? Never A Smoker Allergies 1. Yumi CAPS 2. Claritin CAPS Vitals Signs [Data Includes: Current Encounter] 06May2012 07:21AM Temperature: 98.3 F Heart Rate: 102 O2 Saturation: 98 Assessment 1. Acute Pharyngitis 462 Plan 1. Ibuprofen 600 MG Oral Tablet; TAKE 1 TABLET EVERY 6 HOURS NEEDED; Therapy: 06May2012 to (Evaluate:[id number]); Last Rx:06May2012 Ordered; For: Acute Pharyngitis (462); Rx By: Vivian Andrews; Dispense: 8 Days ; #:30 Tablet; Refill: 0; Transmitted To: [facility] [id number] Signatures Electronically signed by : Vivian Andrews NP; May 06 2012 7:33AM (Author) R WATER HEATER INSTALLER * JOANNA Rhodes - 05/06/2012 7:15 AM CST Chief Complaint 1. Sore Throat History of Present Illness Pt c/o sore throat x 3 days, states she was looked at by school nurse 3 days ago and was told therewere white patches and contacted PMD and was started on Amoxil, states had fever 101 to 102 at homelast PM, states has body aches and doesnt feel well. States is taking amoxil as ordered, but not taking tylenol or zyrtec. Review of Systems See HPI for pertinent positives. Active Problems 1. Acute Sinusitis 461.9 Social History ?? Never A Smoker Allergies 1. Yumi CAPS 2. Claritin CAPS Vitals Signs [Data Includes: Current Encounter] 06May2012 07:21AM Temperature: 98.3 F Heart Rate: 102 O2 Saturation: 98 Physical Exam Constitutional: no acute distress, well appearing and well nourished. Head/Face: normal and no sinus tenderness. Eyes: conjunctiva and lids with no swelling, erythema or discharge. ENT: nasal erythema, oropharyngeal erythema, oropharyngeal exudate and swollen tonsils, but translucent with normal light reflex and canals patent without erythema and nasal mucosa, septum, and turbinates normal without edema or erythema. Pulmonary: no increased work of breathing or signs of respiratory distress. Abdomen: non-tender and without masses. Lymphatic: anterior chain tenderness. Psychiatric: oriented to person, place, and time and mood and affect normal. Assessment 1. Acute Pharyngitis 462 Plan 1. Ibuprofen 600 MG Oral Tablet; TAKE 1 TABLET EVERY 6 HOURS NEEDED; Therapy: to (Evaluate:[id number]); Last Rx:06May2012 Ordered; For: Acute Pharyngitis (462); Rx By: Vivian Andrews; Dispense: 8 Days ; #:30 Tablet; Refill: 0; Send To: [facility] [id number] Continue on the Amoxil as ordered by your PMD, warm salt water gargles 3-4 times a day, mortin as ordered for sore throat or fever. If no better in 2-3 days see your primary doctor. Discussion/Summary Treatment plan includes increased fluid intake and non-steroidal anti- inflammatory drugs. Patient instructed to call the office if not better. Patient Discussion: follow-up PRN. 'School / Work Excuse' Kirstin London may return to work on 05-07-12. May return to work on 05-07-12. Signatures Electronically signed by : Vivian Andrews NP; May 06 2012 7:38AM (Author) R WATER HEATER INSTALLER documented in this encounter Miscellaneous Notes * Letter - JOANNA Rhodes - 05/06/2012 7:15 AM CST 'School / Work Excuse' Kirstin London may return to work on 05-07-12. May return to work on 05-07-12. Signatures Electronically signed by : Vivian Andrews NP; May 06 2012 7:38AM (Author) R WATER HEATER INSTALLER documented in this encounter Plan of Treatment Not on file documented as of this encounter Visit Diagnoses Not on filedocumented in this encounter
--- OUTSIDE RECORDS SUMMARY | 2024-04-06 17:22 | XMS_ITS | Encounter Summary ---
Author Organization [facility] Address [address] [place] [address]. [place] [address] [place] [address] Care Team Providers Care Electric Spot Welder Name Role Phone Unavailable Primary Care Provider Unavailabl e Encounter Details Date Type Department Care Team (Late st Contact Info) Description 07/30/2009 Abstract [facility] CONVERSION [address] [place] [address] Dillon Deutsch MD [address] [place] [address] Social History Tobacco Use Types Packs/Day [...]
--- OUTSIDE RECORDS SUMMARY | 2024-04-06 17:22 | XMS_ITS | Encounter Summary ---
Author Organization [facility] Address [address] [place] [address]. [place], [place] [address] [place] [address] Care Team Providers Care Bench Assembler Name Role Phone Unavailable Primary Care Provider Unavailabl e Encounter Details Date Type Department Care Team (Late st Contact Info) Description 07/02/[address] [facility] [address] [place] [address] Sanjiv Emmanuel MD Social History Tobacco Use [...] of this encounter Visit Diagnoses Diagnosis Acute pharyngitis documented in this encounter
--- OUTSIDE RECORDS SUMMARY | 2024-04-06 17:22 | XMS_ITS | Encounter Summary ---
Author Organization [facility] Address [address] [place] [address]. [place], [place] [address] [place] [address] Care Team Providers Care Service Restorer Emergency Name Role Phone Unavailable Primary Care Provider Unavailabl e Encounter Details Date Type Department Care Team (Latest Contact Info) Description 07/10/2012 Abstract [facility] Social History Tobacco Use Types Packs/Day Years [...]
--- OUTSIDE RECORDS SUMMARY | 2024-04-06 17:22 | XMS_ITS | Encounter Summary ---
Author Organization [facility] Address [address] [place] [address]. [place] [address] [place] [address] Care Team Providers Care Coffee Weigher Name Role Phone Unavailable Primary Care Provider Unavailabl e Encounter Details Date Type Department Care Team (Late st Contact Info) Description 04/09/[address] [facility] CONVERSION [address] [place], [place] [id number] Joss Ellis MD [address] [address] Social History Tobacco Use Types [...]
--- OUTSIDE RECORDS SUMMARY | 2024-04-06 17:22 | XMS_ITS | Encounter Summary ---
Author Organization [facility] Address [address] [place] [address]. [place], [place] [address] [place] [address] Care Team Providers Care Motor Coach Chauffeur Name Role Phone Unavailable Primary Care Provider Unavailabl e Encounter Details Date Type Department Care Team (Late st Contact Info) Description 08/14/2011 Abstract [facility] [address] [place], [place] [phone] Samantha Weeks PA [address] [place], [place] [phone] Social History Tobacco Use Types Packs/Day Years Used Date Smoking Tobacco: Never Assessed Comments Unknown Sex and Gender Information Value Date Recorded Sex Assigned at Not on file Legal Sex Female 7:58 PM CDT Gender Identity Not on file Sexual Orientation Not on file documented as of this encounter Plan of Treatment Not on file documented as of this encounter Visit Diagnoses Diagnosis Head injury Head injury, unspecified documented in this encounter
--- OUTSIDE RECORDS SUMMARY | 2024-04-06 17:22 | XMS_ITS | Encounter Summary ---
Author Organization [facility] Address [address] [place] [address]. [place], [place] [address] [place] [address] Care Team Providers Care Felter Tennis Balls Name Role Phone Unavailable Primary Care Provider Unavailabl e Encounter Details Date Type Department Care Team (Late st Contact Info) Description 05/03/[address] [facility] [address] [place], [place] [id number] Elmo Sandoval MD [address] [facility] [address] [place] [address] [place] [address] Social History Tobacco Use Types Packs/Day [...] as of this encounter Visit Diagnoses Diagnosis Polycystic ovaries documented in this encounter
--- OUTSIDE RECORDS SUMMARY | 2024-04-06 17:22 | XMS_ITS | Encounter Summary ---
Author Organization [facility] Address [address] [place] [address]. [place], [place] [address] [place] [address] Care Team Providers Care Nursing Specialist Name Role Phone Unavailable Primary Care Provider Unavailabl e Encounter Details Date Type Department Care Team (Late st Contact Info) Description 05/27/2010 Abstract [facility] [address] [place] [address] Sanjiv Emmanuel MD Social History Tobacco Use [...]
--- OUTSIDE RECORDS SUMMARY | 2024-04-06 17:22 | XMS_ITS | Encounter Summary ---
Author Organization [facility] Address [address] [place] [address]. [place] [address] [place] [address] Care Team Providers Care Ceramic Coater Name Role Phone Unavailable Primary Care Provider Unavailabl e Encounter Details Date Type Department Care Team (Latest Contact Info) Description 04/21/2012 Abstract [facility] Walter Celsete L, DO [address] [place], [place] [id number] Social History Tobacco Use Types Packs/Day Years Used Date Smoking Tobacco: Never Assessed Comments Unknown Sex and Gender Information Value Date Recorded Sex Assigned at Not on file Legal Sex Female 7:58 PM CDT Gender Identity Not on file Sexual Orientation Not on file documented as of this encounter Last Filed Vital Signs Vital Sign Reading Time Taken Comments Blood Pressure 102/72 04/21/2012 11:27 AM CENTER LEAD CONSULTANT Pulse 82 04/21/2012 11:27 AM CENTER LEAD CONSULTANT Temperature - - Respiratory Rate - - Oxygen Saturation - - Inhaled Oxygen Concentration - - Weight - - Height - - Body Mass Index - - documented in this encounter Progress Notes * Generic Conversion MD Popeye - 04/21/2012 11:05 AM CST Reason For Visit Acute Visit Chief Complaint 1. Cold Symptoms Pt presents to clinic today with c/o sore throat, sinus congestion and drainage, prod cough and loss of voice with a fever at noc. Active Problems 1. Acute Sinusitis 461.9 Social History ?? Never A Smoker Current Meds 1. Azithromycin 250 MG Oral Tablet; TAKE 2 TABLETS ON DAY 1 THEN TAKE 1 TABLET A DAY FOR 4 DAYS; Therapy: [id number] to (Last Rx:[id number]) Requested for: [id number] Ordered; For: Acute Sinusitis (461.9); Rx By: Fernandez Helton; Dispense: 0 Days ; #:6 Tablet; Refill:0; Verified Transmission to [facility] [address] Allergies 1. Yumi CAPS 2. Claritin CAPS Vitals Signs [Data Includes: Current Encounter] 21Apr2012 11:27AM Temperature: 98.5 F Heart Rate: 82 Respiration: 16 Systolic: 102 Diastolic: 72 O2 Saturation: 98 Unable to obtain weight: Patient refused ER LEAD CONSULTANT documented in this encounter Plan of Treatment Not on file documented as of this encounter Visit Diagnoses Not on filedocumented in this encounter
--- OUTSIDE RECORDS SUMMARY | 2024-04-06 17:22 | XMS_ITS | Encounter Summary ---
Author Organization [facility] Address [address] [place] [address]. [place], [place] [address] [place] [address] Care Team Providers Care Graphics Editor Name Role Phone Unavailable Primary Care Provider Unavailabl e Encounter Details Date Type Department Care Team (Latest Contact Info) Description 04/22/2012 Abstract [facility] Social History Tobacco Use Types [...]
--- OUTSIDE RECORDS SUMMARY | 2024-04-06 17:22 | XMS_ITS | Encounter Summary ---
Author Organization [facility] Address [address] [place] [address]. [place] [address] [place] [address] Care Team Providers Care Deputy Director Of Nursing Name Role Phone Unavailable Primary Care Provider Unavailabl e Encounter Details Date Type Department Care Team (Late st Contact Info) Description 07/23/2009 Abstract [facility] CONVERSION [address] [place] [address] Dillon Deutsch MD [address] [place] [address] Social History Tobacco Use Types Packs/Day [...]
--- OUTSIDE RECORDS SUMMARY | 2024-04-06 17:30 | XMS_ITS | Clinical Summary ---
Author Organization [facility] Address [address] [place] [address] Care Team Providers Care Conduit Cleaner Name Role Phone Lorelei Davis Primary Care Provider [phone] Allergies Active Allergy Reactions Criticality Noted Date Comments Iodinated Contrast Media Anaphylaxis High 10/15/2019 Lavender Oil Headache Low 11/13/2019 Vanilla Headache Low 11/13/2019 Medications sertraline (ZOLOFT) 100 mg tablet Take 200 mg by mouth daily 09/27/2021 Active montelukast (SINGULAIR) 10 mg tablet Take 10 mg by mouth daily 08/16/2021 Active HYDROcodone-acet aminophen (NORCO) 5-325 mg per tabletIndication s:Pain Take 1 tablet by mouth every 6 (six) hours as needed Active cyclobenzaprine (FLEXERIL) 10 mg tablet Take 10 mg by mouth 3 (three) times a day as needed for muscle spasms Active ibuprofen (ADVIL,MOTRIN) 800 mg tablet Take 800 mg by mouth every 6 (six) hours as needed for pain Active Active Problems No known active problems Surgical History Surgery Date Site/Laterality Comments ANKLE FRACTURE SURGERY CHOLECYSTECTOMY TONSILLECTOMY Bilateral Medical History Medical History Date Comments Allergic rhinitis Anxiety Arthritis Depression Gastric reflux Migraines Obesity Fibroid tumor Family History Medical History Relation Name Comments Arthritis Father Mental illness Father Arthritis Mother Relation Name Status Comments Father Mother Social History Tobacco Use Types Packs/Day Years Used Date Smoking Tobacco: Never Personal Safety Answer Date Recorded Getting School Help Needed Not on file 06/03 Comments Unknown Sex and Gender Information Value Date Recorded Sex Assigned at Not on file Legal Sex Female 12:35 AM STRATEGY EXECUTION CONSULTANT Gender Identity Not on file Sexual Orientation Not on file Obstetrics History Last Filed Vital Signs Vital Sign Reading Time Taken Comments Blood Pressure 112/80 08/17/2016 3:30 PM CDT Pulse 79 08/01/2016 5:40 PM CDT Temperature 36.1 ??C (97 ??F) 08/01/2016 5:40 PM CDT Respiratory Rate - - Oxygen Saturation 97% 08/01/2016 5:40 PM CDT Inhaled Oxygen Concentration - - Weight 104.3 kg (230 lb) 10/12/2021 10:48 AM CDT Height 165.1 cm (5' 5 ) 10/12/2021 10:48 AM CDT Body Mass Index 38.27 10/12/2021 10:48 AM CDT Plan of Treatment Health Maintenance Due Date Last Done Comments Breast Cancer Screening-Mammogram 1982 Depression Screening 1982 Hepatitis C Screening 1982 Varicella Vaccines (1 of 2 - 13+ 2-dose series) 1995 Hepatitis B Screening 02/28/2000 Regular Well Visit/Exam 18-64 02/28/2000 Cervical Cancer Screening 07/13/2017 07/13/2016 Covid-19 Vaccine (2023-2 5 season) 2023 05/19/2021, 06/19/2020, 05/29/2020 Influenza Vaccine (#1) 2023 0, 04/18/2019 DTaP/Tdap/Td Vaccine (2 - Td or Tdap) 11/29/2029 11/30/2019 HPV Vaccines Aged Out No longer eligi ble based on patient's age to complete this topic Pneumococcal vaccine <65 Aged Out No longer eligible based on patient's age to complete this topic Procedures Procedure Name Priority Date/Time Associated Diagnosis Comments THINPREP PAP Routine 07/13/2016 6:30 PM CDT from Last 3 Months or Most Recently Relevant to Health Maintenance Results * ThinPrep Pap (07/13/2016 6:30 PM CDT) Thin Prep Pap Smear SEE BELOW 07/18 12:15 PM CDT [facility] HISTORICAL RESULTS Comment: Surface Plate Inspector ThinPrep Cytology Final Report ? ThinPrep Pap Specimen Source ? Cervix/Endocervix ?? Specimen Adequacy ? Satisfactory for interpretation, endocervical cells ?? (transformation zone) present. ?? Interpretation ? Negative for intraepithelial lesion or malignancy. ?? 07/18/16 Performing Arts Technicians: ELLIOTT Hernandez(ASCP) ?? 07/18/16 ?Verified By: ELLIOTT Hernandez(ASCP) ? electronic signature ?? [facility], Department of Pathology ?? [address] [facility] ?? [place] ??[place] [address] ?? For questions regarding this case, ?? call ext. [phone] ?? CPT Code(s) ? 25522 ?? Clinical History ? LMP: 07/02/16 ?? : N ?? : N ?? IUD: N ?? Hormone Therapy: N ?? Postmenopausal: N ?? Previous surgery date and type: N ?? Hysterectomy: N ?? Chemotherapy: N ?? BARBARA Exposure: N ?? Radiation: N ?? Previous Abnormal Pap? Details: N ?? Diagnostic or Screening Pap Test: Screening ?? Performed by [employer], ?? [address], [facility] [place] [address] ?? [email or web address], Rafal Goddard MD - Lab. Director ?? 07/13/2016 6:30 PM CDT 07/13/2016 6:50 PM CDT Elmo Sandoval MD LAB PATHOLOGY ORDERABLES F inal Result [facility] HISTORICAL RESULTS from Last 3 Months or Most Recently Relevant to Health Maintenance [place] Care Teams Conduit Cleaner Relationship Specialty Start Date End Date Lorelei Davis PA [address] [place] [id number] PCP - General Family Practice 09/19/21
--- OUTSIDE RECORDS SUMMARY | 2024-04-06 17:30 | XMS_ITS | Encounter Summary ---
Author Organization [facility] Address [address] [place] [address] Phone Care Team Providers Care Hair Salon Manager Name Role Phone Lorelei Davis Primary Care Provider [phone] Reason for Referral * Diagnostic Imaging (Routine) - Closed Specialty Diagnoses / Procedures Referred By Robyn avalos Referred To Contact Diagnoses Chronic pain of left ankle Procedures [place]R [place]le [place] 3+ [place] [address] [place] [address] Phone: tel: fax: [facility] Referral ID Status Reason Start Date Expiration Date Visits Re quested Visits Authorized [id number] Closed 10/06/2021 11/05/2022 1 1 Reason for Visit * Reason Comments Pain Encounter Details Date Type Department Care Team (Late st Contact Info) Description 10/12/2021 11:00 AM CDT Office Visit [facility] Orthopaedic Surgery [address] [facility] [address] [place] [address] [place] [address] [place] [address] Ankle arthritis (Primary Dx); Chronic pain of left ankle Social History Tobacco Use Types Packs/Day Years Used Date Smoking Tobacco: Never Comments Unknown Sex and Gender Information Value Date Recorded Sex Assigned at Not on file Legal Sex Female 12:35 AM RIBBON CUTTER Gender Identity Not on file Sexual Orientation Not on file documented as of this encounter Last Filed Vital Signs Vital Sign Reading Time Taken Comments Blood Pressure - - Pulse - - Temperature - - Respiratory Rate - - Oxygen Saturation - - Inhaled Oxygen Concentration - - Weight 104.3 kg (230 lb) 10/12/2021 10:48 AM CDT Height 165.1 cm (5' 5 ) 10/12/2021 10:48 AM CDT Body Mass Index 38.27 10/12/2021 10:48 AM CDT documented in this encounter Patient Instructions * Patient Instructions* Eduarda Viramontes RMA - 10/12/2021 11:52 AM CDT Your provider has placed an order for an injection for your left ankle with one of the Physiatry providers. If you have not been contacted by their scheduling team within 2-3 business days, please call [phone]. Please contact our office 2-3 week after your injection by phone or by your patient My Chart to letus know how you are doing. This will help us in documenting how well you pain responded to the injection and if it would be beneficial to repeat it in the future. Our office number is [phone] ifyou would like to contact us by phone. documented in this encounter Progress Notes * Uyen Power NP - 10/12/2021 11:00 AM CDT NEW PATIENT VISIT CHIEF COMPLAINT Pain of the Left Ankle HISTORY OF PRESENT ILLNESS This is a 41 y.o. female who presents for evaluation today of her left chronic ankle pain. In 2017 she sustained an ankle fracture with ORIF followed by hardware removal 2019. Since this injury she has had persistent pain. She is experiencing an aching, throbbing and sharp pain. This is worse during long periods of walking or walking on uneven ground. Rest makes this better. She has been using ibuprofen and [place]. PAST MEDICAL HISTORY Past Medical History: Diagnosis Date ??? Allergic rhinitis ??? Anxiety ??? Arthritis ??? Depression ??? Fibroid tumor ??? Gastric reflux ??? Migraines ??? Obesity SURGICAL HISTORY Past Surgical History: Procedure Laterality Date ??? ANKLE FRACTURE SURGERY ??? CHOLECYSTECTOMY ??? TONSILLECTOMY Bilateral SOCIAL HISTORY She reports that she has never smoked. She does not have any smokeless tobacco history on file. Shereports current drug use. Drug: Alcohol. Patient reports consuming alcoholic drinks , with a daily consumption of drinks. Patient also reports consumption of 6 or more alcoholic drinks at one occasion. FAMILY HISTORY She family history includes Arthritis in her father and mother; Mental illness in her father. DRUG ALLERGIES She is allergic to iodinated contrast media, lavender oil, and vanilla. INITIAL REVIEW OF MEDICATIONS She has a current medication list which includes the following prescription(s): cyclobenzaprine, hydrocodone-acetaminophen, ibuprofen, montelukast (SINGULAIR), and sertraline (ZOLOFT). REVIEW OF SYSTEMS Review of Systems Constitutional: Negative. HENT: Negative. Eyes: Negative. Respiratory: Negative. Cardiovascular: Negative. Gastrointestinal: Negative. Endocrine: Negative. Genitourinary: Negative. Musculoskeletal: Positive for arthralgias, gait problem, joint swelling and myalgias. Skin: Negative. Allergic/Immunologic: Negative. Hematological: Negative. Psychiatric/Behavioral: Negative. Breast: Negative. PHYSICAL EXAMINATION Ht Readings from Last 1 Encounters: 10/12/21 165.1 cm (5' 5 ) Wt Readings from Last 1 Encounters: 10/12/21 104.3 kg (230 lb) Patient is alert and oriented ??3. Hearing is intact to spoken word. Respirations are even and nonlabored. Exam of the left lower extremity shows palpable DP and PT pulses. Sensation is intact to light touch through the DP, SP, sural, saphenous and tibial distribution. Skin reveals no rashes, lesions or ulcers. No evidence of swelling, erythema or ecchymosis. Well-healed incisions. Tenderness over the anteromedial ankle joint. No She has an intact dorsiflexion, plantar flexion, inversion and eversion. 5/5 motor strength through the EHL, FHL, anterior tibialis, gastrocsoleus, peroneals and posterior tibialis. Pes planovalgus noted REVIEW OF X-RAYS/STUDIES I have ordered left ankle radiographs and personally reviewed the images with the patient today. Myindependent interpretation is moderate tibiotalar osteoarthritis noted with those tracks in the distal fibula and tibia and heterotopic ossifications through the syndesmosis. IMPRESSION/DIAGNOSIS Left ankle posttraumatic osteoarthritis TREATMENT/PLAN I have reviewed her physical examination, x-ray findings and impression thoroughly with her today. I recommended proceeding with conservative management that would include ankle cortisone injections,activity modification and proper shoe wear with orthotics to offer arch support. She is wishing to proceed with an ankle cortisone injection. We will schedule her for this at her earliest convenience. In the meantime she may use ice and anti-inflammatories. I recommended a custom orthotics to offerarch support with medial and lateral posting. She will begin with [id number] inserts. She is to call the office 2 weeks after the injection to get an update of her symptoms. If she receives great relief from this injection we may repeat them accordingly. Patient voices understanding and is inagreement with this plan today. FOLLOW UP Call after injection with update In collaborative practice with PEDRO Calvo, RN, BUSINESS TRAVEL CONSULTANT-C Nurse Practitioner Foot and Ankle Service [facility] Uyen Power RN, BUSINESS TRAVEL CONSULTANT-C in a collaborative practice with Dr. Shaka Lindo and Dr. Davy Power, RN, BUSINESS TRAVEL CONSULTANT-C dictating using Fluency Direct. Tool Supervisor variances may occur. documented in this encounter Plan of Treatment Not on file documented as of this encounter Results * XR Ankle Left 3+ View (10/12/2021 11:29 AM CDT) Anatomical Region Laterality Modality Lower Extremities, Ankle Left Compute d Radiography 10/12/2021 2:39 PM CDT Impressions 10/12/2021 5:57 PM CDT 1. Mild to moderate left tibiotalar osteoarthritis. 2. Sclerotic line in the left talus, possibly representing an old healed fracture. 3. Mildly widened syndesmosis with heterotopic ossification. 4. Multiple remote ghost tracks noted distal left fibula and tibia with healed medial and lateral malleolar fractures. Dictated by: Chico Caceres M.D. The radiology attending physician has personally reviewed this study, and had reviewed and/or edited this written report and agrees with it. Electronically signed by: Giancarlo Shen MD Narrative 10/12/2021 5:57 PM CDT EXAMINATION: XR ANKLE LEFT 3 OR MORE VIEWS HISTORY: Left ankle pain FINDINGS: 3 weight bearing images of the left ankle are performed without comparison. Remote ghost tracks are noted in the distal fibula and tibia. There is heterotopic ossification of the syndesmosis, which is mildly widened. No medial clear space widening. There is mild to moderate tibiotalar osteoarthritis. There is a sclerotic line noted in the talar neck on the lateral view. There are healed medial lateral malleolar fractures. No acute fracture. Soft tissues are unremarkable. Procedure Note Cherrie Shen MD - 10/12/2021 EXAMINATION: XR ANKLE LEFT 3 OR MORE VIEWS HISTORY: Left ankle pain FINDINGS: 3 weight bearing images of the left ankle are performed without comparison. Remote ghost tracks are noted in the distal fibula and tibia. There is heterotopic ossification of the syndesmosis, which is mildly widened. No medial clear space widening. There is mild to moderate tibiotalar osteoarthritis. There is a sclerotic line noted in the talar neck on the lateral view. There are healed medial lateral malleolar fractures. No acute fracture. Soft tissues are unremarkable. IMPRESSION: 1. Mild to moderate left tibiotalar osteoarthritis. 2. Sclerotic line in the left talus, possibly representing an old healed fracture. 3. Mildly widened syndesmosis with heterotopic ossification. 4. Multiple remote ghost tracks noted distal left fibula and tibia with healed medial and lateral malleolar fractures. Dictated by: Chico Caceres M.D. The radiology attending physician has personally reviewed this study, and had reviewed and/or edited this written report and agrees with it. Electronically signed by: Giancarlo Shen MD Uyen Power NP IMG XR PROCEDURES Final Result documented in this encounter Visit Diagnoses Diagnosis Ankle arthritis- Primary Unspecified arthropathy, ankle and foot Chronic pain of left ankle Chronic pain of left ankle documented in this encounter Historical Medications * This list may reflect changes made after this encounter. ibuprofen (ADVIL,MOTRIN) 800 mg tablet Take 800 mg by mouth every 6 (six) hours as needed for pain cyclobenzaprine (FLEXERIL) 10 mg tablet Take 10 mg by mouth 3 (three) times a day as needed for muscle spasms HYDROcodone-aceta minophen (NORCO) 5-325 mg per tabletIndications :Pain Take 1 tablet by mouth every 6 (six) hours as needed montelukast (SINGULAIR) 10 mg tablet Take 10 mg by mouth daily 08/16/2021 sertraline (ZOLOFT) 100 mg tablet Take 200 mg by mouth daily 09/27/2021 added in this encounter Care Teams Hair Salon Manager Relationship Specialty Start Date End Date Lorelei Davis PA [address] [place] [id number] PCP - General Family Practice 09/19/21 documented as of this encounter
--- OUTSIDE RECORDS SUMMARY | 2024-04-06 17:30 | XMS_ITS | Encounter Summary ---
Author Organization [facility] Address [address] [place] [address] Care Team Providers Care Family Law Attorney Name Role Phone Lorelei Davis Primary Care Provider [phone] Reason for Referral * Diagnostic Imaging (Routine) - Closed Specialty Diagnoses / Procedures Referred By Robyn avalos Referred To Contact Diagnoses Chronic pain of left ankle Procedures XR Ankle Left 3+ [place] [address] [place] [address] Phone: tel: fax: [facility] Referral ID Status Reason Start Date Expiration Date Visits Re quested Visits Authorized [id number] Closed 10/06/2021 11/05/2022 1 1 Reason for Visit * Diagnostic Imaging (Routine) - Closed Specialty Diagnoses / Procedures Referred By Robyn avalos Referred To Contact Diagnoses Chronic pain of left ankle Procedures XR Ankle [place] 3[place] [address] [place] [address] Phone: tel: fax: [facility] Referral ID Status Reason Start Date Expiration Date Visits Re quested Visits Authorized [id number] Closed 10/06/2021 11/05/2022 1 1 Encounter Details Date Type Department Care Team (Latest Contact Info) Description 10/12/2021 11:24 AM CDT - 10/12/2021 11:59 PM CDT Hospital Encounter [facility] Radiology at [facility] [address] [place] [address] Chronic pain of left ankle Discharge Disposition: Discharge to home or self care Social History Tobacco Use Types Packs/Day Years Used Date Smoking Tobacco: Never Comments Unknown Sex and Gender Information Value Date Recorded Sex Assigned at Not on file Legal Sex Female 12:35 AM TAPING FOREMAN Gender Identity Not on file Sexual Orientation Not on file documented as of this encounter Medications at Time of Discharge cyclobenzaprine (FLEXERIL) 10 mg tablet Take 10 mg by mouth 3 (three) times a day as needed for muscle spasms HYDROcodone-aceta minophen (NORCO) 5-325 mg per tabletIndications :Pain Take 1 tablet by mouth every 6 (six) hours as needed ibuprofen (ADVIL,MOTRIN) 800 mg tablet Take 800 mg by mouth every 6 (six) hours as needed for pain montelukast (SINGULAIR) 10 mg tablet Take 10 mg by mouth daily 08/16/2021 sertraline (ZOLOFT) 100 mg tablet Take 200 mg by mouth daily 09/27/2021 documented as of this encounter Discharge Disposition Disposition Code Departure Means Destination Discharge to home or self care documented in this encounter Plan of Treatment Not on file documented as of this encounter Procedures Procedure Name Priority Date/Time Associated Diagnosis Comments XR ANKLE LEFT 3 OR MORE VIEWS Schedule Routine, Read Routine (OP Routine) 10/12/2021 11:29 AM CDT Chronic pain of left ankle documented in this encounter Results * XR Ankle Left [...] documented in this encounter Visit Diagnoses Diagnosis Chronic pain of left ankle documented in this encounter Care Teams Family Law Attorney Relationship Specialty Start Date End Date Lorelei Davis PA [address] [place] [address] PCP - General Family Practice 09/19/21 documented as of this encounter
--- OUTSIDE RECORDS SUMMARY | 2024-04-06 17:30 | XMS_ITS | Encounter Summary ---
Author Organization [facility] Care Team Providers Care Stoker Installer Name Role Phone No, Physician Primary Care Provider Lorelei Davis Primary Care Provider [phone] Encounter Details Date Type Department Care Team (Latest Contact Info) Description 09/12/2016 Orders Only [facility] Provider, MD Deyanira [address] [place] [address] Social History Tobacco Use Types Packs/Day Years Used Date Smoking Tobacco: Never Assessed Comments Unknown Sex and Gender Information Value Date Recorded Sex Assigned at Not on file Legal Sex Female 12:35 AM FILM HISTORIAN Gender Identity Not on file Sexual Orientation Not on file documented as of this encounter Plan of Treatment Not on file documented as of this encounter Procedures Procedure Name Priority Date/Time Associated Diagnosis Comments SCAN - LABS 09/15/2016 12:00 AM CDT documented in this encounter Results * SCAN - LABS (09/15/2016 12:00 AM CDT) Narrative 09/15/2016 12:00 AM CDT Ordered by an unspecified provider. Historical Provider Final Res ult documented in this encounter Visit Diagnoses Not on filedocumented in this encounter Care Teams Stoker Installer Relationship Specialty Start Date End Date No, Physician PCP - General 06/11/20 09/18/21 Lorelei Davis PA [facility] [place], [place] [id number] PCP - General Family Practice 09/19/21 documented as of this encounter
--- OUTSIDE RECORDS SUMMARY | 2024-04-06 17:30 | XMS_ITS | Encounter Summary ---
Author Organization [facility] Healthcare Address [address] [place] [address] Care Team Providers Care Senior Business Development Manager Name Role Phone Unavailable Primary Care Provider Unavailabl e Encounter Details Date Type Department Care Team (Latest Contact Info) Description 08/02/2016 5:22 AM CDT - 08/02/2016 11:30 AM CDT Hospital Encounter [facility] Elmo Sandoval MD [address] [place] [id number] Pelvic and perineal pain; Dysmenorrhea; Female infertility; Migraine without status migrainosus, not intractable; Uncomplicated asthma; Gastro-esophageal reflux disease without esophagitis Social History Tobacco Use Types Packs/Day Years Used Date Smoking Tobacco: Never Assessed Comments Unknown Sex and Gender Information Value Date Recorded Sex Assigned at Not on file Legal Sex Female 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 Gender Identity Not on file Sexual Orientation Not on file documented as of this encounter Last Filed Vital Signs Vital Sign Reading Time Taken Comments Blood Pressure 99/65 08/01/2016 5:40 PM CDT Pulse 79 08/01/2016 5:40 PM CDT Temperature 36.1 ??C (97 ??F) 08/01/2016 5:40 PM CDT Respiratory Rate - - Oxygen Saturation 97% 08/01/2016 5:40 PM CDT Inhaled Oxygen Concentration - - Weight 108.9 kg (240 lb) 08/01/2016 5:40 PM CDT Height 165.1 cm (5' 5 ) 08/01/2016 5:40 PM CDT Body Mass Index 39.94 08/01/2016 5:40 PM CDT documented in this encounter Plan of Treatment Not on file documented as of this encounter Procedures Procedure Name Priority Date/Time Associated Diagnosis Comments HEMOGRAM WITH MANUAL DIFFERENTIAL Routine 08/02/2016 6:44 AM CDT HCG, BLOOD, QUANTITATIVE Routine 08/02/2016 6:44 AM CDT documented in this encounter Results * (ABNORMAL) Hemogram with manual differential (08/02/2016 6:44 AM CDT) WBC 5.5 4.6 - 10.2 x10 3/ul 08/02/2016 6:58 AM CDT [employer] [facility] [employer] Addiction [employer] (ABAM) HISTORICAL RESULTS RBC 5.14(H) 3.76 - 4.80 x10 6/ul 08/02/2016 6:58 AM CDT [employer] Addiction Medicine (ABAM) HISTORICAL RESULTS Hemoglobin 15.3(H) 11.0 - 15.0 g/dl 08/02/2016 6:58 AM CDT [employer] Addiction [employer] (ABAM) HISTORICAL RESULTS Hct 42.6 33.0 - 43.0 % 08/02/2016 6:58 AM CDT [employer] Addiction [employer] (ABAM) HISTORICAL RESULTS MCV 82.9 80.0 - 97.0 fl 08/02/2016 6:58 AM CDT [employer] Addiction [employer] (ABAM) HISTORICAL RESULTS MCH 29.8 27.0 - 31.2 pg 08/02/2016 6:58 AM CDT [employer] Addiction Medicine (ABAM) HISTORICAL RESULTS MCHC 35.9(H) 31.8 - 35.4 g/dl 08/02/2016 6:58 AM CDT [employer] Addiction [employer] (ABAM) HISTORICAL RESULTS RDW 12.1 11.6 - 14.8 % 08/02/2016 6:58 AM CDT [employer] Addiction [employer] (ABAM) HISTORICAL RESULTS Plt Count 230 124 - 400 x10 3/ul 08/02/2016 6:58 AM CDT [employer] Addiction Medicine (ABAM) HISTORICAL RESULTS MPV 9.3 7.4 - 10.4 fl 08/02/2016 6:58 AM CDT [employer] Addiction [employer] (ABAM) HISTORICAL RESULTS MANUAL DIFF MANUAL DIFF --------- -- 08/02/2016 7:26 AM CDT [employer] [facility] [employer] Addiction Medicine (ABAM) HISTORICAL RESULTS Neutrophils % (Manual) 55 37 - 80 % Lymphocytes % (Manual) 33 10 - 51 % Atypical Lymphs % 3 0 - 6 % Monocytes % (Manual) 9 0 - 12 % ABSOLUTE COUNTS ABSOLUTE COUNTS --------- -- Abs Neuts cells/mm3 3025 /ul Absolute Neutrophils 3.0 1.7 - 8.7 x10 3/ul Absolute Lymphocytes 1.8 0.2 - 4.6 x10 3/ul ATYPICAL LYMPH ABS# 0.2 0 - 0.3 x10 3/ul Absolute Monocytes 0.5 0.1 - 1.5 x10 3/ul Smudge Cells # 6 /100 WBC Platelet Evaluation AGREE AGREE Comment:Slide review of plat elets correlates with instrument count. Ovalocytes 1+ 08/02/2016 6:44 AM CDT 08/02/2016 6:47 AM CDT Narrative [facility] HISTORICAL RESULTS - 08/02/2016 7:26 AM CDT us Elmo Sandoval MD LAB BLOOD ORDERABLES Final Result [facility] HISTORICAL RESULTS * hCG, blood, quantitative (08/02/2016 6:44 AM CDT) Beta HCG, Quant < 0.1 0.0 - 1.0 mIU/mL Comment: Weeks of preg ?BHCG ? Weeks of preg ? BHCG ?3 ? 5.8-71.2 ?10 ? 46,509-186,977 ?4 ? 9.5-750 ? 12 ? 27,832-210,612 ?5 ? 217-7,138 ? 14 ? 13,950-62,530 ?6 ? 158-31,795 ?15 ? 12,039-70,971 ?7 ?3,697-163,563 ?16 ?9,040-56,451 ?8 ? 32,065-149,571 ?17 ?8,175-55,868 ?9 ? 63,803-151,410 ?18 ?8,099-58,176 Post-menopause: ??0-8.3 ?METHOD: ??Hiral ECLIA Intended for the early detection of . ? 08/02/2016 6:44 AM CDT 08/02/2016 6:47 AM CDT us Elmo Sandoval MD LAB BLOOD ORDERABLES Final Result [facility] HISTORICAL RESULTS documented in this encounter Visit Diagnoses Diagnosis Pelvic and perineal pain Dysmenorrhea Female infertility Female infertility of unspecified origin Migraine without status migrainosus, not intractable Uncomplicated asthma Gastro-esophageal reflux disease without esophagitis documented in this encounter
--- OUTSIDE RECORDS SUMMARY | 2024-04-06 17:30 | XMS_ITS | Encounter Summary ---
Author Organization [facility] Facility Care Team Providers Care Club Licensee Name Role Phone No, Physician Primary Care Provider [phone] Lorelei Davis Primary Care Provider [phone] Encounter Details Date Type Department Care Team (Latest Contact Info) Description 08/02/2016 Orders Only [facility] ProviderDeyanira MD [address] [place] [address] Social History Tobacco Use Types Packs/Day Years Used Date Smoking Tobacco: Never Assessed Comments Unknown Sex and Gender Information Value Date Recorded Sex Assigned at Not on file Legal Sex Female 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 Historical Provider Final Res ult * PROCEDURE - RESULT (08/02/2016 12:00 AM CDT) Narrative 08/02/2016 12:00 AM CDT Ordered by an unspecified provider. Historical Provider Final Res ult documented in this encounter Visit Diagnoses Not on filedocumented in this encounter Care Teams Club Licensee Relationship Specialty Start Date End Date No, Physician PCP - General 06/11/20 09/18/21 Lorelei Davis PA [address] [place] [address] PCP - General Family Practice 09/19/21 documented as of this encounter
--- OUTSIDE RECORDS SUMMARY | 2024-04-06 17:30 | XMS_ITS | Encounter Summary ---
Author Organization [facility] Healthcare Address [address] [place] [address] Care Team Providers Care Quality Assistant Name Role Phone Unavailable Primary Care Provider Unavailabl e Encounter Details Date Type Department Care Team (Latest Contact Info) Description 07/13/2016 5:17 PM CDT Hospital Encounter 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 This test detects E6/E7 viral messenger RNA of the ?? high-risk HPV types 16, 18, 31, 33, 35, 39, 45, 51, 52, 56, ?? 58, 59, 66, and 68 associated with cervical cancer and its ?? precursor lesions. Cross-reactivity with low-risk HPV ?? genotypes 26, 67, 70, and 82 may occur. Sensitivity may be ?? affected by specimen collection methods, stage of ?? infection, and the presence of interfering substances. ?? Results should be interpreted in conjunction with other ?? available laboratory and clinical data. ?? This test is intended for medical purposes only and is not ?? valid for the evaluation of suspected sexual abuse or for ?? other forensic purposes. HPV testing should not be used for ?? screening or management of atypical squamous cells of ?? undetermined significance (ASCUS) in women under age 21. ?? Performed by [employer], ?? [address], [facility] [address] ?? [email or web address], Rafal Goddard MD, Lab. Director ?? 07/13/2016 6:30 PM CDT 07/13/2016 6:50 PM CDT Elmo Sandoval MD LAB BLOOD ORDERABLES Final Result [facility] HISTORICAL RESULTS * ThinPrep Pap (07/13/2016 6:30 PM CDT) Thin Prep Pap Smear SEE BELOW 07/18 12:15 PM CDT [facility] HISTORICAL RESULTS Comment: Heat Treat Operator ThinPrep Cytology Final Report ? ThinPrep Pap Specimen Source ? Cervix/Endocervix ?? Specimen Adequacy ? Satisfactory for interpretation, endocervical cells ?? (transformation zone) present. ?? Interpretation ? Negative for intraepithelial lesion or malignancy. ?? 07/18/16 Leather Shaver: ELLIOTT Hernandez(ASCP) ?? 07/18/16 ?Verified By: ELLIOTT Hernandez(ASCP) ? electronic signature ?? [facility], Department of Pathology ?? [address] [facility] ?? [place] ??[place] [address] ?? For questions regarding this case, ?? call ext. [phone] ?? CPT Code(s) ? 49246 ?? Clinical History ? LMP: 07/02/16 ?? : N ?? : N ?? IUD: N ?? Hormone Therapy: N ?? Postmenopausal: N ?? Previous surgery date and type: N ?? Hysterectomy: N ?? Chemotherapy: N ?? BARBARA Exposure: N ?? Radiation: N ?? Previous Abnormal Pap? Details: N ?? Diagnostic or Screening Pap Test: Screening ?? Performed by [employer], ?? [address] [facility] [address] ?? [email or web address], Rafal Goddard MD - Lab. Director ?? 07/13/2016 6:30 PM CDT 07/13/2016 6:50 PM CDT us Elmo Sandoval MD LAB PATHOLOGY ORDERABLES F inal Result [facility] HISTORICAL RESULTS documented in this encounter Visit Diagnoses Diagnosis Encounter for screening for malignant neoplasm of cervix Encounter for screening for human papillomavirus (HPV) documented in this encounter
--- OUTSIDE RECORDS SUMMARY | 2024-04-06 17:30 | XMS_ITS | Encounter Summary ---
Author Organization [facility] Healthcare Address [address] [place] [address] Care Team Providers Care Tool Design Draftsperson Name Role Phone Unavailable Primary Care Provider Unavailabl e Encounter Details Date Type Department Care Team (Latest Contact Info) Description 09/15/2016 11:04 AM CDT Hospital Encounter [facility] Elmo Sandoval MD [address] [place] [address] Female infertility Social History Tobacco Use Types Packs/Day Years Used Date Smoking Tobacco: Never Assessed Comments Unknown Sex and Gender Information Value Date Recorded Sex Assigned at Not on file 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 Follicular phase ? 0.1 - 0.9 ng/mL ?? Ovulation phase ?0.1 - 12.0 ng/mL ?? Luteal phase ? 1.8 - 23.9 ng/mL ?? Postmenopause ?0 - 0.1 ng/mL 09/15/2016 11:2 7 AM CDT 09/15/2016 11:44 AM CDT Elmo Sandoval MD LAB BLOOD ORDERABLES Final Result Performing Organization Address City/State/[facility] [[email or web address]] Co de Phone Number [facility] HISTORICAL RESULTS documented in this encounter Visit Diagnoses Diagnosis Female infertility Female infertility of unspecified origin documented in this encounter
--- OUTSIDE RECORDS SUMMARY | 2024-04-06 17:30 | XMS_ITS | Referral Summary ---
Author Organization [facility] Address [address] [place] [address] Care Team Providers Care Photo Studio Assistant Name Role Phone Lorelei Davis Primary Care Provider [phone] Allergies Active Allergy Reactions Criticality Noted Date [...] Active Active Problems No known active problems Social History Tobacco Use Types Packs/Day Years Used Date Smoking Tobacco: Never Personal Safety Answer Date Recorded Getting School Help Needed Not on file 06/03 Comments Unknown Sex and Gender Information Value Date Recorded Sex Assigned at Not on file Legal Sex Female 12:35 AM METER MAINTENANCE PERSON Gender Identity Not on file Sexual Orientation [...] 10/12/2021 10:48 AM CDT Plan of Treatment Not on file Procedures Procedure Name Priority Date/Time Associated Diagnosis Comments THINPREP PAP Routine 07/13/2016 6:30 PM CDT from Last 3 Months or Most Recently Relevant to Health Maintenance Results * ThinPrep Pap (07/13/2016 6:30 PM CDT) Thin Prep Pap Smear SEE BELOW 07/18 12:[address] [facility] HISTORICAL RESULTS Comment: Emergency Communications Operator ThinPrep Cytology Final Report ? ThinPrep Pap Specimen Source ? Cervix/Endocervix ?? Specimen Adequacy ? Satisfactory for interpretation, endocervical cells ?? (transformation zone) present. ?? Interpretation ? Negative for intraepithelial lesion or malignancy. ?? 07/18/16 Bilingual Customer Service Specialist: ELLIOTT Hernandez(ASCP) ?? 07/18/16 ?Verified By: ELLIOTT Hernandez(ASCP) ? electronic signature ?? [facility], Department of Pathology ?? [address] ?? [place] ??[place] [address] ?? For questions regarding this case, ?? call ext. [phone] ?? CPT Code(s) ? 05324 ?? Clinical History ? LMP: 07/02/16 ?? : N ?? : N ?? IUD: N ?? Hormone Therapy: N ?? Postmenopausal: N ?? Previous surgery date and type: N ?? Hysterectomy: N ?? Chemotherapy: N ?? BARBARA Exposure: N ?? Radiation: N ?? Previous Abnormal Pap? Details: N ?? Diagnostic or Screening Pap Test: Screening ?? Performed by [employer], ?? [address], [facility] [place] [address] ?? [email or web address], Rafal Goddard MD - Lab. Director ?? 07/13/2016 6:30 PM CDT 07/13/2016 6:50 PM CDT Elmo Sandoval MD LAB PATHOLOGY ORDERABLES F inal Result Performing Organization Address City/State/[facility] Co de Phone Number [facility] H[facility] RESULTS from Last 3 Months or Most Recently Relevant to Health Maintenance Insurance [facility] [address] [employer] ACCESS CT Care Teams Photo Studio Assistant Relationship Specialty Start Date End Date Lorelei Davis PA [address] [place] [phone] PCP - General Family Practice 09/19/21
--- OUTSIDE RECORDS SUMMARY | 2024-04-06 17:30 | XMS_ITS | Encounter Summary ---
Author Organization [facility] Address [address] [place] [address] Phone Care Team Providers Care Personnel Supervisor Name Role Phone Lorelei Davis Primary Care Provider [phone] Encounter Details Date Type Department Care Team (Late st Contact Info) Description 10/12/2021 Telephone [facility] Orthopaedic Surgery [address] [place] [address] 6th [place] [address] [place] [id number] Darlin Jhaveri RMA Social History Tobacco Use Types Packs/Day Years Used Date Smoking Tobacco: Never Comments Unknown Sex and Gender Information Value Date Recorded Sex Assigned at Not on file Legal Sex Female 12:35 AM TRAFFIC COORDINATOR Gender Identity Not on file Sexual Orientation Not on file documented as of this encounter Miscellaneous Notes * Telephone Encounter - Darlin Jhaveri RMA - 10/12/2021 4:25 PM CDT Procedure Pre-Screening Assessment Procedure:FL FLUORO GUIDED INJECTION ANKLE LEFT Date: 10/27/21 Time: 1:40pm Provider: vianney Location: [facility] Advanced Medicine ([facility]), [facility], [address] [place] [address] [address], [place] [address] Will you receive any vaccinations including the COVID booster 2 weeks prior to your scheduled procedure: No Allergic to x-ray contrast dye or local anesthetics: No Not Applicable Blood thinners: No Not Applicable Diabetic: No Not Applicable Provided Pre-Procedure Instructions including arrival time: Yes GIVEN VERBALLY Patient encouraged to call with issues/concerns. documented in this encounter Plan of Treatment Not on file documented as of this encounter Visit Diagnoses Not on filedocumented in this encounter Care Teams Personnel Supervisor Relationship Specialty Start Date End Date Lorelei Davis PA [address] [place] [address] PCP - General Family Practice 09/19/21 documented as of this encounter
--- OUTSIDE RECORDS SUMMARY | 2024-04-06 17:31 | XMS_ITS | Encounter Summary ---
Author Organization [facility] Healthcare Address [address] [place] [address] Care Team Providers Care Captain Waiter/Waitress Name Role Phone Unavailable Primary Care Provider Unavailabl e Encounter Details Date Type Department Care Team (Latest Contact Info) Description 07/13/2016 2:52 PM CDT Hospital Encounter [facility] Elmo Sandoval MD [address] [place] [address] Emotional lability Social History Tobacco Use Types Packs/Day Years Used Date Smoking Tobacco: Never Assessed Comments Unknown Sex and Gender Information Value Date Recorded Sex Assigned at Not on file Legal Sex Female 12:35 AM DRYWALL STRIPPER Gender Identity Not on file Sexual Orientation Not on file documented as of this encounter Plan of Treatment Not on file documented as of this encounter Procedures Procedure Name Priority Date/Time Associated Diagnosis Comments THYROID FUNCTION CASCADE Routine 07/13/2016 3:14 PM CDT documented in this encounter Results * TSH reflex to free T4 (07/13/2016 3:14 PM CDT) TSH W REFLEX TO FT4 1.34 0.27 - 4.20 uIU/mL 07/13/2016 4:10 PM CDT [facility] HISTORICAL RESULTS 07/13/2016 3:14 PM CDT 07/13/2016 3:28 PM CDT Elmo Sandoval MD LAB BLOOD ORDERABLES Final Result [facility] HISTORICAL RESULTS documented in this encounter Visit Diagnoses Diagnosis Emotional lability documented in this encounter
== END 2024-03-30 13:54 | disposition home or self-care (01) ==
PROVIDERS: Emergency Provider Registered Nurse; PCP Physician Assistant Medical
DX: H65.01 Acute serous otitis media, right ear (principal); J06.9 Acute upper respiratory infection, unspecified; E28.2 Polycystic ovarian syndrome; K21.9 Gastro-esophageal reflux disease without esophagitis; M19.90 Unspecified osteoarthritis, unspecified site; F41.9 Anxiety disorder, unspecified; F32.A Depression, unspecified
CPT/HCPCS: 99213; G0463

== ENCOUNTER 2024-12-09 08:58 | Emergency (ER) | payer OTHER, SELFPAY ==
[2024-12-09] VITALS (9 sets, daily range): BP systolic 136–157; BP diastolic 80–122; PULSE 77; RESP 20; TEMP 36.4; O2SAT 96–100
--- OUTSIDE RECORDS SUMMARY | 2024-12-09 09:07 | XMS_ITS | Encounter Summary ---
Author Organization [facility] Facility Care Team Providers Care Technician Assistant Name Role Phone No, Physician Primary Care Provider Lorelei Davis Primary Care Provider [phone] Encounter Details Date Type Department Care Team (Latest Contact Info) Description 09/12/2016 Orders Only [facility] Provider, MD Deyanira [address] [place] [address] Social History Tobacco Use Types Packs/Day Years Used Date Smoking Tobacco: Never Assessed Comments Unknown Sex and Gender Information Value Date Recorded Sex Assigned at Not on file Legal Sex Female 12:35 AM WELL LOGGING OPERATOR MUD ANALYSIS Gender Identity Not on file Sexual Orientation [...] on filedocumented in this encounter Care Teams Technician Assistant Relationship Specialty Start Date End Date No, Physician PCP - General 06/11/20 09/18/21 Lorelei Davis PA Count includes the [facility] [place], [place] [id number] PCP - General Family Practice 09/19/21 documented as of this encounter
--- OUTSIDE RECORDS SUMMARY | 2024-12-09 09:07 | XMS_ITS | Clinical Summary ---
Author Organization [facility] Address [address] [place] [address] Care Team Providers Care Internet Marketing Manager Name Role Phone Lorelei Davis PA-C Primary Care Provider [phone] Allergies Active Allergy Reactions Criticality Noted Date [...] Diagnosed Date Encounter for induction of labor ([facility] 02/15 Immunizations Immunization Administration Dates Next Due Flucelvax 6 Months+ [...] Comments Blood Pressure 134/90 06/03/2023 2:13 AM COLORIST PHOTOGRAPHY Pulse 85 06/03/2023 2:13 AM COLORIST PHOTOGRAPHY Temperature 36.2 C (97.2 F) 06/03/2023 2:47 AM COLORIST PHOTOGRAPHY Respiratory Rate 18 06/03/2023 2:13 AM COLORIST PHOTOGRAPHY Oxygen Saturation 100% 06/03/2023 2:13 AM COLORIST PHOTOGRAPHY Inhaled Oxygen Concentration - - Weight 104.3 kg (230 lb) 06/03/2023 2:13 AM COLORIST PHOTOGRAPHY Height 165.1 cm (5' 5) 06/03/2023 2:13 AM COLORIST PHOTOGRAPHY Body Mass Index 38.27 06/03/2023 2:13 AM COLORIST PHOTOGRAPHY Plan of Treatment Health Maintenance Due Date Last Done Comments Cervical Cancer Screening Pa p Smear (Age 30 to 64) Every 3 Years 1982 Annual Physical 1985 Hepatitis C 02/28/2000 Hepatitis B Vaccines (1 of 3 - 19+ 3-dose series) 2001 HPV Vaccines (1 - 3-dose SCD M series) 2009 Cervical Cancer Screening Pa p with HPV Testing (Age 30 to 64) Every 5 Years 02/28/2012 Cervical Cancer Screening with HPV 02/28/2012 COVID-19 Vaccine (2023-2 5 season) 2023 Mammogram Screening 10/25/2024 10/25/2022 DTaP, Tdap and Td Vaccines ( 2 - Td or Tdap) 11/29/2029 11/30/2019 Meningococcal B Vaccine Aged Out No l onger eligible based on patient's age to complete this topic Meningococcal Vaccine Aged Out No shandra maris eligible based on patient's age to complete this topic Pneumococcal Vaccine: Pediat rics (0 to 5 Years) and At-Risk Patients (6 to 49 Years) Aged Out No longer eligi ble based on patient's age to complete this topic RSV Immunizations Under 20 Months Aged Out No longer eligible based on [...] Narrative 10/25/2022 4:20 PM CDT IMAGING STUDIES: MG SCREENING W IONA WEBBER DATE: 10/25/2022 2:16 PM HISTORY: scr 42-year-old female for screening study. No reported prior breast intervention. Reported history of female paternal family member with breast cancer at 50 years old. COMPARISON: None. Patient reports prior mammogram greater than 20 years ago and therefore this is examination to reestablish baseline. TECHNIQUE: Bilateral digital screening mammogram with CAD. Standard CC and MLO views. Additional bilateral CC nipple profile views and additional right MLO view. 2-D imaging and 3-D tomography. DISCUSSION: Scattered fibroglandular tissue. Benign calcifications No mammographically suspicious mass, microcalcification, or architectural distortion. IMPRESSION: 1. No mammographic evidence of malignancy. Recommend annual mammogram. 2. BI-RADS Category 2: Benign. 3. TISSUE TYPE: Category B - There are areas of scattered fibroglandular density. A) A negative report should not delay a biopsy if a dominant or clinically suspicious mass is present. B) Adenosis and dense breasts may obscure an underlying neoplasm. C) Study interpreted with computer aided detection. Ordered By: KIANA CHUNG Interpreted By: Jeremias Reyes, 10/25/2022 4:07 PM us Kiana Chung DO MAMMO Final Resu lt from Last 3 Months or Most Recently Relevant to Health Maintenance Insurance [facility] Advance Directives * Full Code (Latest Code [...] 7:42 PM 02/09/2020 12:47 AM Care Teams Internet Marketing Manager Relationship Specialty Start Date End Date Lorelei Davis PA-C PCP - General NURSE PRACTITIONER 06/24/19
--- OUTSIDE RECORDS SUMMARY | 2024-12-09 09:07 | XMS_ITS | Clinical Summary ---
Author Organization [facility] Address [address] [place] [address] Care Team Providers Care Poultry Husbandry Teacher Name Role Phone Lorelei Davis Primary Care Provider [phone] Source Comments [facility],non-owned Affiliates and Associated Physician Practices is amultiple site organization consisting of ambulatory clinics and hospital sitesin [place], [place], [place] and [place]. This disclosure is being madepursuant to the Care Everywhere program and may not contain all information available regarding this patient. Last updated 17.[facility] Allergies Active Allergy Reactions Criticality Noted Date Comments Contrast-Iodinated Agents For Ct/Other Unknown 10/15/2019 Lavender Oil Headache 11/13/2019 Vanilla Headache 11/13/2019 Medications * Be aware that medications may not be up to date on this document. Alwaysverify current medications with the patient. montelukast (SINGULAIR) 10 MG tablet Take 10 [...] Binge Drinking Not on file 09/2019 Comments No Sex and Gender Information Value Date Recorded Sex Assigned at Not on file Legal Sex Female 1:19 PM CDT Gender Identity Not on file Sexual Orientation Not on file Last Filed Vital Signs Vital Sign Reading Time Taken Comments Blood Pressure 118/70 02/10/2020 3:44 PM LAMINATOR PRINTED CIRCUIT BOARDS Pulse 113 02/10/2020 3:44 PM LAMINATOR PRINTED CIRCUIT BOARDS Temperature - - Respiratory Rate 18 01/13/2020 4:40 PM CDT Oxygen Saturation 100% 11/13/2019 3:17 PM CDT Inhaled Oxygen Concentration - - Weight 118.4 kg (261 lb) 12/16/2019 4:42 PM CDT Height - - Body Mass Index - - Plan of Treatment Health Maintenance Due Date Last Done Comments LIPID TESTING 1982 MAMMOGRAM 1982 HIV SCREENING 1997 HEPATITIS C SCREENING 02/23/2000 DTAP/TDAP/TD VACCINES (1 - Tdap) 2001 HEPATITIS B VACCINE (1 of 3 - 19+ 3-dose series) 2001 HPV VACCINE (1 - 3-dose SCDM series) 2009 COVID-19 VACCINE (2023-2 5 season) 2023 DEPRESSION SCREENING 04/09/2024 INFLUENZA VACCINE (#1) 2024 ZOSTER VACCINE (1 of 2) 02/28/2032 HIB VACCINE Aged Out No longer eligi ble based on patient's age to complete this topic MENINGOCOCCAL (Group B) VACC INE SHARED DECISION-MAKING Aged Out No longer eligibl e based on patient's age to complete this topic MENINGOCOCCAL GROUPS A/C/Y/W VACCINE Aged Out No longer eligible b ased on patient's age to complete this topic PNEUMOCOCCAL VACCINE Aged Out No long er eligible based on patient's age to complete this topic Insurance [employer] Care Teams Poultry Husbandry Teacher Relationship Specialty Start Date End Date Lorelei Davis PA [address] [place] [phone] PCP - General Physician Technology Professional 10/17/19
--- OUTSIDE RECORDS SUMMARY | 2024-12-09 09:07 | XMS_ITS | Encounter Summary ---
Author Organization [facility] Facility Care Team Providers Care Materials Management Clerk Name Role Phone No, Physician Primary Care Provider [phone] Lorelei Davis Primary Care Provider [phone] Encounter Details Date Type Department Care Team (Latest Contact Info) Description 08/02/2016 Orders Only [facility] CLINCONV ProviderDeyanira MD [address] [place] [address] Social History Tobacco Use Types Packs/Day Years Used Date Smoking Tobacco: Never Assessed Comments Unknown Sex and Gender Information Value Date Recorded Sex Assigned at Not on file Legal Sex Female 12:35 AM BROOM BUNDLER Gender Identity Not on file Sexual Orientation [...] on filedocumented in this encounter Care Teams Materials Management Clerk Relationship Specialty Start Date End Date No, Physician PCP - General 06/11/20 09/18/21 Lorelei Davis PA [address] [place] [id number] PCP - General Family Practice 09/19/21 documented as of this encounter
--- OUTSIDE RECORDS SUMMARY | 2024-12-09 09:07 | XMS_ITS | Clinical Summary ---
Author Organization [facility] Address [address] [place] [address] Care Team Providers Care Mail Examiner Name Role Phone Lorelei Davis Primary Care Provider [phone] Allergies Active Allergy Reactions Criticality Noted Date [...] on file Legal Sex Female 12:35 AM REGIONAL OPERATIONS DIRECTOR Gender Identity Not on file Sexual Orientation Not on file Obstetrics History Last Filed Vital Signs Vital Sign Reading Time Taken Comments Blood Pressure 112/80 08/17/2016 3:30 PM CDT Pulse 79 08/01/2016 5:40 PM CDT Temperature 36.1 C (97 F) 08/01/2016 5:40 PM CDT Respiratory Rate - - Oxygen Saturation 97% 08/01/2016 5:40 PM CDT Inhaled Oxygen Concentration - - Weight 104.3 kg (230 lb) 10/12/2021 10:48 AM CDT Height 165.1 cm (5' 5) 10/12/2021 10:48 AM CDT Body Mass Index 38.27 10/12/2021 10:48 AM CDT Plan of Treatment Health Maintenance Due Date Last Done Comments Breast Cancer Screening-Mammogram 1982 Depression Screening 1982 Hepatitis C Screening 1982 Varicella Vaccines (1 of 2 - 13+ 2-dose series) 1995 Hepatitis B Screening 02/28/2000 Regular Well Visit/Exam 18-64 02/28/2000 HPV Vaccines (1 - 3-dose SCD M series) 2009 Cervical Cancer Screening 07/13/2017 07/13/2016 Covid-19 Vaccine (2023-2 5 season) 2023 05/19/2021, 06/19/2020, 05/29/2020 Influenza Vaccine (#1) 2024 0, 04/18/2019 DTaP/Tdap/Td Vaccine (2 - Td or Tdap) 11/29/2029 11/30/2019 Pneumococcal vaccine <65 Aged Out No longer eligible based on patient's age to complete this topic Procedures Procedure Name Priority Date/Time Associated Diagnosis Comments THINPREP PAP Routine 07/13/2016 6:30 PM CDT from Last 3 Months or Most Recently Relevant to Health Maintenance Results * ThinPrep Pap (07/13/2016 6:30 PM CDT) Thin Prep Pap Smear SEE BELOW 07/18 12:15 PM CDT [facility] HISTORICAL RESULTS Comment: Chief Substation Operator ThinPrep Cytology Final Report ThinPrep Pap Specimen Source Cervix/Endocervix Specimen Adequacy Satisfactory for interpretation, endocervical cells (transformation zone) present. Interpretation Negative for intraepithelial lesion or malignancy. 07/18/16 Observer Helper: ELLIOTT Hernandez(ASCP) 07/18/16 Verified By: ELLIOTT Hernandez(ASCP) electronic signature [facility] Department of Pathology [address] [place] [id number] For questions regarding this case, call ext. [phone] CPT Code(s) 28784 Clinical History LMP: 07/02/16 : N : N IUD: N Hormone Therapy: N Postmenopausal: N Previous surgery date and type: N Hysterectomy: N Chemotherapy: N BARBARA Exposure: N Radiation: N Previous Abnormal Pap? Details: N Diagnostic or Screening Pap Test: Screening Performed by [facility], [address] [place] [address] [id number] [email or web address], Rafal Goddard MD - Lab. Director 07/13/2016 6:30 PM CDT 07/13/2016 6:50 PM CDT Elmo Sandoval MD LAB PATHOLOGY ORDERABLES F inal Result [employer] HISTORICAL RESULTS from Last 3 Months or Most Recently Relevant to Health Maintenance [place] Care Teams Mail Examiner Relationship Specialty Start Date End Date Lorelei Davis PA [address] [place] [id number] PCP - General Family Practice 09/19/21
--- NOTE | 2024-12-09 09:33 | ED.SKABFB ---
HPI - Skin/Abscess/Foreign Bdy General Chief complaint: Skin/Abscess/Foreign Body Stated complaint: spider bite Time Seen by Provider: 12/09/24 09:05 Source: patient Mode of arrival: ambulatory Limitations: no limitations History of Present Illness HPI narrative: Patient is a 44-year-old female who presents the ED with report of redness and pain to her left upper arm. Patient reports she 1st noticed an area of irritation to her left upper arm near her axillary region on Sunday. States she was camping and believes she was bit by a spider. States since then, she has developed worsening redness, warmth, pain throughout her left upper inner arm. Also complains of itching. Denies fevers. Denies drainage from wound. Related Data Home Medications ?Medication ?Instructions ?Recorded ?Confirmed ?Last Taken ?Type omeprazole 20 mg capsule,delayed 20 mg PO PRN PRN Acid Reflux 10/23/23 10/22/24 Unknown History release Held on 10/25/23. Instructions: restart after antibiotics are done levonorgestrel (Mirena) 1 device intrauterine ONCE 01/29/24 10/22/24 Unknown History Allergies Allergy/AdvReac Type Severity Reaction Status Date / Time Iodinated Contrast Media Allergy Severe Anaphylaxis Verified 12/09/24 09:17 bismuth subsalicylate (From Allergy Mild Rash Verified 12/09/24 09:17 Pepto-Bismol) tioconazole (From Monistat 1 Allergy Mild Rash Verified 12/09/24 09:17 (tioconazole)) Review of Systems Review of Systems: All systems reviewed & are unremarkable except as noted in HPI. All systems reviewed & are unremarkable except as noted in HPI and below PMFSH Past Medical History Medical History Hypertriglyceridemia Arthritis Depression Anxiety PCOS (polycystic ovarian syndrome) Allergic rhinitis GERD (gastroesophageal reflux disease) IBS (irritable bowel syndrome) Surgical History Surgical History History of laparoscopy 2017 History of ankle surgery left- 2013 ORIF, 2019 hardware removed Previous section History of tonsillectomy History of cholecystectomy Family History Family History Father Hypertension Depression Heart disease Mother Asthma Depression Grandparent Heart disease Cerebrovascular accident Social History Social History Social History: 04/22/24 very confident with medical forms Smoking status: Never smoker Second hand tobacco smoke exposure: No Alcohol intake: current Drinks per week: 3 Alcohol use details: rarely Substance use: never Substance use type: does not use Do You Feel Safe in your Home?: Yes Lack of Transportation: No Lack of Food: Never True Current Housing: I Have Housing Concerned About Future Housing: No Difficulty Paying Gas/Electric Bills: No Difficulty Paying for Meds: YES Currently Unemployed: No Education: Master's Degree or Higher Difficulty w/ Childcare or Family Care: No Living arrangements: with family Occupation/Education: occupation Gender identity (if verbalized by the patient): Female Sexual Orientation (if Verbalized by the Patient): Straight or Heterosexual Spiritual care concerns: No Exam Narrative: GENERAL: Well appearing, morbidly obese with BMI of 47.1, non-toxic, in no acute distress. HEAD: Normocephalic, atraumatic. RESPIRATORY: Airway patent, respirations nonlabored. CARDIOVASCULAR: Regular rate and rhythm. Radial pulses strong and easily palpable. MUSCULOSKELETAL: Moves all extremities. Small scabbed lesion to left upper medial arm, just distal from axillary region. Diffuse erythema and warmth surrounding with extension throughout left medial upper arm down to medial elbow. Mild tenderness to palpation. No significant induration. No appreciable fluctuance or areas of abscess. SKIN: Warm, dry, normal color. NEURO: A&O X3. Speech clear. No ataxic movements. PSYCHIATRIC: Appropriate mood and affect. Normal interaction. Course Vital Signs Vital signs: Vital Signs Temperature 97.5 F L 12/09/24 09:12 Pulse Rate 77 12/09/24 09:12 Respiratory Rate 20 12/09/24 09:12 Blood Pressure 138/88 12/09/24 09:12 Pulse Oximetry 100 12/09/24 09:12 Oxygen Delivery Room Air 12/09/24 09:12 Temperature 97.5 F L 12/09/24 09:12 Pulse Rate 77 12/09/24 09:12 Respiratory Rate 20 12/09/24 09:12 Blood Pressure 138/88 12/09/24 09:12 Pulse Oximetry 100 12/09/24 09:12 Oxygen Delivery Room Air 12/09/24 09:12 MDM - Skin/Abscess/Foreign Bdy MDM Narrative Medical decision making narrative: Exam consistent with possible insect bite with superimposed cellulitis. Vital signs are stable. Patient is afebrile. In no acute distress. Feel safe for discharge home with oral antibiotics. She has not been on any antibiotics thus far. Will start on Keflex and Bactrim. Given 1st doses in the ED. Erythema was marked with skin marker. Patient advised to monitor symptoms closely. Advised if symptoms do not improve within the next 24-48 hours on antibiotics, to return to the ED for possible IV antibiotics. Patient is in agreement with this plan. Feels comfortable going home on oral antibiotics. Advised to continue Tylenol, ibuprofen, Benadryl as needed for further symptom relief. Given return precautions. Discharged in stable condition. Medical Records Attestation: I reviewed the patient's medical records. Discharge Plan Discharge Clinical Impression: Cellulitis of left upper arm, Insect bite of left upper arm Patient Disposition: Home Condition: Stable Instructions: Antibiotic Form, Cellulitis (ED), Insect Bite or Sting (ED) Additional Instructions: Take both antibiotics as prescribed. It is important you finish both courses. Avoid itching as much as possible. You may use Benadryl cream or oral Benadryl as needed for itching. Also recommend cool compresses to arm. Continue Tylenol/ibuprofen as needed for pain. Continue to monitor symptoms. Follow-up with your primary care doctor for further evaluation. Return to the ED if you experience worsening or severe symptoms, severe redness/streaking up and down arm, fevers, unable to keep down food or drink, or any other symptoms of concern. Patient Language: Montenegrin Prescriptions: New sulfamethoxazole-trimethoprim [Bactrim DS] 800-160 mg tablet 1 tablet PO Q12H 7 Days Qty: 14 0RF cephalexin 500 mg capsule 500 mg PO Q6H 7 Days Qty: 28 0RF No Action Mirena 21 mcg/24hr (up to 8 yrs) 52 mg intrauterine device 1 device intrauterine ONCE Rx Instructions: as a single dose metformin 500 mg tablet extended release 24 hr 500 mg PO DAILY Qty: 90 0RF Zepbound 2.5 mg/0.5 mL pen injector 2.5 mg subcut WEEKLY Qty: 2 0RF Rx Instructions: for 4 weeks bupropion HCl 300 mg tablet extended release 24 hr 300 mg PO QAM Qty: 90 1RF omeprazole 20 mg capsule,delayed release(DR/EC) 20 mg PO PRN PRN (Reason: Acid Reflux) sertraline 100 mg tablet 200 mg PO DAILY Qty: 180 0RF montelukast [Singulair] 10 mg tablet 10 mg PO DAILY Qty: 90 0RF fenofibrate nanocrystallized 145 mg tablet 145 mg PO DAILY Qty: 90 0RF topiramate 50 mg tablet 50 mg PO DAILY Qty: 90 1RF hydrocodone-acetaminophen 5-325 mg tablet 5 - 325 tablet PO TID PRN (Reason: Pain, Moderate) Qty: 20 0RF ibuprofen 800 mg tablet 800 mg PO TID PRN (Reason: pain) Qty: 90 0RF phentermine 37.5 mg capsule 37.5 mg PO DAILY Qty: 30 0RF Rx Instructions: must administer 30 minutes before or 1-2 hours after breakfast Follow-up/Referrals: Lorelei Davis PA-C [Primary Care Provider, Family Practice] Time of Disposition: 09:41
[2024-12-09] MEDS: CEPHALEXIN 500 MG CAPSULE PO (09:44)
[2024-12-09] MEDS: SULFAMETHOXAZOLE/TRIMETHOPRIM 800/160 MG DS TABLET 1 TAB PO (09:44)
--- OUTSIDE RECORDS SUMMARY | 2024-12-09 09:44 | XMS_ITS | Clinical Summary ---
Author Organization [facility] Address [address] [place] [address] Care Team Providers Care Director Corporate Sales Name Role Phone Lorelei Davis Primary Care Provider Source Comments [facility],non-owned Affiliates and Associated Physician Practices is amultiple site organization consisting of ambulatory clinics and hospital sitesin [place], [place], [place] and [place]. This disclosure is being madepursuant to the Care Everywhere program and may not contain all information available regarding this patient. Last updated 17.[facility] Allergies Active Allergy Reactions Criticality Noted Date [...] Comments Blood Pressure 118/70 02/10/2020 3:44 PM TILE SHADER Pulse 113 02/10/2020 3:44 PM TILE SHADER Temperature - - Respiratory Rate 18 01/13/2020 [...] patient's age to complete this topic Insurance [facility] Care Teams Director Corporate Sales Relationship Specialty Start Date End Date Lorelei Davis PA [address] [place] [id number] PCP - General Physician Transformer Molder 10/17/19
--- OUTSIDE RECORDS SUMMARY | 2024-12-09 09:44 | XMS_ITS | Clinical Summary ---
Author Organization [facility] Address [address] [place] [address] Care Team Providers Care Parks And Recreation Worker Name Role Phone Lorelei Davis Primary Care Provider [phone] Allergies Active Allergy Reactions Criticality Noted Date [...] on file Legal Sex Female 12:35 AM TUBE CLEANER Gender Identity Not on file Sexual Orientation [...] Smear SEE BELOW 07/18 12:15 PM CDT [facility] HISTORICAL RESULTS Comment: Postie ThinPrep Cytology Final Report ThinPrep Pap Specimen Source Cervix/Endocervix Specimen Adequacy Satisfactory for interpretation, endocervical cells (transformation zone) present. Interpretation Negative for intraepithelial lesion or malignancy. 07/18/16 Editing Computer Publisher: ELLIOTT Hernandez(ASCP) 07/18/16 Verified By: ELLIOTT Hernandez(ASCP) electronic signature [facility] Department of Pathology [address] [place] [id number] For questions regarding this case, call ext. [phone] CPT Code(s) 43366 Clinical History LMP: 07/02/16 : N : N IUD: N Hormone Therapy: N Postmenopausal: N Previous surgery date and type: N Hysterectomy: N Chemotherapy: N BARBARA Exposure: N Radiation: N Previous Abnormal Pap? Details: N Diagnostic or Screening Pap Test: Screening Performed by [facility], [address] [place] [address] [id number] [email or web address], Rafal Goddard MD - Lab. Director 07/13/2016 6:30 PM CDT 07/13/2016 6:50 PM CDT Elmo Sandoval MD LAB PATHOLOGY ORDERABLES F inal Result [facility] [facility] [employer] HISTORICAL RESULTS from Last 3 Months or Most Recently Relevant to Health Maintenance [place] Care Teams Parks And Recreation Worker Relationship Specialty Start Date End Date Lorelei Davis PA [address] [place] [id number] PCP - General Family Practice 09/19/21
--- OUTSIDE RECORDS SUMMARY | 2024-12-09 09:44 | XMS_ITS | Encounter Summary ---
Author Organization [facility] Facility Care Team Providers Care Finisher Polisher Name Role Phone No, Physician Primary Care Provider [phone] Lorelei Davis Primary Care Provider [phone] Encounter Details Date Type Department Care Team (Latest Contact Info) Description 09/12/2016 Orders Only [facility] CLINCONV Provider, MD Deyanira [address] [place] [address] Social History Tobacco Use Types Packs/Day Years Used Date Smoking Tobacco: Never Assessed Comments Unknown Sex and Gender Information Value Date Recorded Sex Assigned at Not on file Legal Sex Female 12:35 AM ASSURANCE SPECIALIST Gender Identity Not on file Sexual [...] on filedocumented in this encounter Care Teams Finisher Polisher Relationship Specialty Start Date End Date No, Physician PCP - General 06/11/20 09/18/21 Lorelei Davis PA [facility] [place], [place] [id number] PCP - General Family Practice 09/19/21 documented as of this encounter
[2024-12-09] MEDS: IBUPROFEN 600 MG TABLET PO (09:45)
--- OUTSIDE RECORDS SUMMARY | 2024-12-09 09:45 | XMS_ITS | Encounter Summary ---
Author Organization [facility] Facility Care Team Providers Care Unit Manager Name Role Phone No, Physician Primary Care Provider [phone] Lorelei Davis Primary Care Provider [phone] Encounter Details Date Type Department Care Team (Latest Contact Info) Description 08/02/2016 Orders Only [facility] CLINCONV ProviderDeyanira MD [address] [place] [id number] Social History Tobacco Use Types Packs/Day Years Used Date Smoking Tobacco: Never Assessed Comments Unknown Sex and Gender Information Value Date Recorded Sex Assigned at Not on file Legal Sex Female 12:35 AM FLOORWALKER Gender Identity Not on file Sexual Orientation [...] on filedocumented in this encounter Care Teams Unit Manager Relationship Specialty Start Date End Date No, Physician PCP - General 06/11/20 09/18/21 Lorelei Davis PA [address] [place] [id number] PCP - General Family Practice 09/19/21 documented as of this encounter
--- OUTSIDE RECORDS SUMMARY | 2024-12-09 09:45 | XMS_ITS | Clinical Summary ---
Author Organization [facility] Address [address] [place] [address] Care Team Providers Care Ux Lead Name Role Phone Lorelei Davis PA-C Primary Care Provider [phone] Allergies Active Allergy Reactions Criticality Noted Date [...] Diagnosed Date Encounter for induction of labor ([facility]) 02/15 Immunizations Immunization Administration Dates Next Due [...] Comments Blood Pressure 134/90 06/03/2023 2:13 AM PROTOCOL MANAGER Pulse 85 06/03/2023 2:13 AM PROTOCOL MANAGER Temperature 36.2 C (97.2 F) 06/03/2023 2:47 AM PROTOCOL MANAGER Respiratory Rate 18 06/03/2023 2:13 AM PROTOCOL MANAGER Oxygen Saturation 100% 06/03/2023 2:13 AM PROTOCOL MANAGER Inhaled Oxygen Concentration - - Weight 104.3 kg (230 lb) 06/03/2023 2:13 AM PROTOCOL MANAGER Height 165.1 cm (5' 5) 06/03/2023 2:13 AM PROTOCOL MANAGER Body Mass Index 38.27 06/03/2023 2:13 AM PROTOCOL MANAGER Plan of Treatment Health Maintenance Due Date [...] with computer aided detection. Ordered By: KIANA CHUGN Interpreted By: Jeremias Reyes, 10/25/2022 4:07 PM us Kiana Chung DO MAMMO Final Resu lt from Last 3 Months or Most Recently Relevant to Health Maintenance Insurance [facility] Advance Directives * Full Code (Latest Code [...] 7:42 PM 02/09/2020 12:47 AM Care Teams Ux Lead Relationship Specialty Start Date End Date Lorelei Davis PA-C PCP - General NURSE PRACTITIONER 06/24/19
== END 2024-12-09 10:04 | disposition home or self-care (01) ==
PROVIDERS: Emergency Provider Physician Assistant; PCP Physician Assistant Medical
DX: L03.114 Cellulitis of left upper limb (principal); S40.862A Insect bite (nonvenomous) of left upper arm, initial encounter; E78.1 Pure hyperglyceridemia; E28.2 Polycystic ovarian syndrome; K58.9 Irritable bowel syndrome, unspecified; K21.9 Gastro-esophageal reflux disease without esophagitis; M19.90 Unspecified osteoarthritis, unspecified site; F32.A Depression, unspecified; F41.9 Anxiety disorder, unspecified; Z97.5 Presence of (intrauterine) contraceptive device; Z90.49 Acquired absence of other specified parts of digestive tract; Z79.899 Other long term (current) drug therapy; W57.XXXA Bitten or stung by nonvenomous insect and other nonvenomous arthropods, initial encounter
CPT/HCPCS: 99283; A9270

== ENCOUNTER 2025-03-12 09:21 | Emergency (ER) | payer OTHER, SELFPAY ==
--- NOTE | 2025-03-12 09:25 | ED.URI ---
HPI - URI/Sore Throat General Chief Complaint: Upper Respiratory Infection Stated Complaint: Nausea/Vomiting/Diarrhea / Congestion Time Seen by Provider: 03/12/25 09:25 Source: patient Mode of arrival: ambulatory Limitations: no limitations History of Present Illness HPI Narrative: patient is a 45-year-old female who presents with 10 days of Sinus congestion and productive cough. Diarrhea has been present for the last week but patient thought it was her IBS. Vomiting started yesterday hand she has been unable to keep any fluids or solids down. Has been taking DayQuil and NyQuil. Related Data Home Medications ?Medication ?Instructions ?Recorded ?Confirmed ?Last Taken ?Type omeprazole 20 mg capsule,delayed 20 mg PO PRN PRN Acid Reflux 10/23/23 10/22/24 Unknown History release Held on 10/25/23. Instructions: restart after antibiotics are done levonorgestrel (Mirena) 1 device intrauterine ONCE 01/29/24 10/22/24 Unknown History Allergies Allergy/AdvReac Type Severity Reaction Status Date / Time Iodinated Contrast Media Allergy Severe Anaphylaxis Verified 03/12/25 09:39 bismuth subsalicylate (From Allergy Mild Rash Verified 03/12/25 09:39 Pepto-Bismol) tioconazole (From Monistat 1 Allergy Mild Rash Verified 03/12/25 09:39 (tioconazole)) Review of Systems Review of Systems: All systems reviewed & are unremarkable except as noted in HPI and below Constitutional: Constitutional: Denies chills, Denies fatigue, Denies fever(s), Denies headache(s), Denies malaise and Denies weakness Eyes: Eyes: Denies blurry vision, Denies itchy eyes and Denies loss of vision ENT: Denies otalgia, Denies headache(s), Reports nasal congestion, Denies sinus pain and Denies sore throat Cardiovascular: Cardiovascular: Denies chest pain, Denies irregular heart rhythm and Denies dyspnea Respiratory: Respiratory: Reports cough and Denies dyspnea Gastrointestinal: Gastrointestinal: Denies abdominal pain, Reports diarrhea, Reports nausea and Reports vomiting Musculoskeletal: Musculoskeletal: Denies back pain, Denies myalgias and Denies arthralgias Integumentary/Breasts: Skin/Breast: Denies pruritus and Denies rash Neurologic: Denies headache(s), Denies loss of vision and Denies weakness Psychiatric: Psychiatric: Reports no additional psychiatric complaints Endocrine: Endocrine: Denies fatigue Allergic/Immunologic: Allergic/Immunologic: Denies itchy eyes PMFSH Past Medical History Medical History Hypertriglyceridemia Arthritis Depression Anxiety PCOS (polycystic ovarian syndrome) Allergic rhinitis GERD (gastroesophageal reflux disease) IBS (irritable bowel syndrome) Surgical History Surgical History History of laparoscopy 2018 History of ankle surgery left- 2014 ORIF, 2019 hardware removed Previous section History of tonsillectomy History of cholecystectomy Family History Family History Father Hypertension Depression Heart disease Mother Asthma Depression Grandparent Heart disease Cerebrovascular accident Social History Social History Social History: 04/22/24 very confident with medical forms Smoking status: Never smoker Second hand tobacco smoke exposure: No Alcohol intake: current Drinks per week: 3 Alcohol use details: rarely Substance use: never Substance use type: does not use Lack of Transportation: No Lack of Food: Never True Current Housing: I Have Housing Concerned About Future Housing: No Difficulty Paying Gas/Electric Bills: No Difficulty Paying for Meds: YES Currently Unemployed: No Education: Master's Degree or Higher Difficulty w/ Childcare or Family Care: No Living arrangements: with family Occupation/Education: occupation Gender identity (if verbalized by the patient): Female Sexual Orientation (if Verbalized by the Patient): Straight or Heterosexual Spiritual care concerns: No Comments At time of signature, agree with nursing past medical, surgical, social and family history. There is no relevant family history pertinent to the presenting complaint. Exam Const: General: cooperative, healthy appearing, comfortable, no acute distress and well nourished Nutritional Appearance: well nourished Orientation/consciousness: patient oriented x3 Limitations: no limitations HENMT: Head: normal to inspection, normocephalic and atraumatic Ears: hearing grossly normal bilaterally, external ears normal, TM's normal bilaterally, EAC's normal and no periauricular adenopathy Face/Nose/Sinus: Normal external nose present, Abnormal mucous membranes and turbinates present erythematous bilateral and diffuse, normal facial exam, sinuses nontender and face symmetric Face and sinus: normal facial exam, sinuses nontender and face symmetric Mouth: Yes Normal oral and palatal mucosa present, Yes lip normal, Yes tongue normal, Yes Normal salivary glands and ducts present, Yes oropharynx normal and Yes moist mucous membranes Teeth and gingiva: dentition normal Throat: posterior oropharynx normal, tonsils normal and uvula midline Eyes: General: appearance normal, both eyes and all related structures Alignment and Position: alignment normal and position normal Periorbital: periorbital findings normal Eyelids: eyelids normal Pupils: Equal, round and reactive pupils present Neck: Neck: normal visual inspection, full ROM, no lymphadenopathy and supple Chest: Chest palpation & inspection: normal inspection of the chest and normal palpation of entire chest wall Resp: Effort & Inspection: normal respiratory effort and able to speak in complete sentences Auscultation: clear to auscultation bilaterally, no crackles, no rales, no rhonchi and no wheezes Cardio: Rate: regular rate Rhythm: regular rhythm Heart sounds: S1 normal heart sound present and S2 normal heart sound present GI: Inspection: normal to inspection Skin: General skin exam: normal color and no rashes or lesions noted Neuro: General: patient oriented x3 and moves all extremities Cranial nerves: Yes Equal, round and reactive pupils present Speech: normal speech Gait exam (Neuro): Normal gait present Extrem: General: normal to inspection, full ROM and no edema Psych: Appearance: grossly normal and well kempt Mental Status: mental status grossly normal Speech and movement: Normal speech and movement present Affect: normal affect Attitude: cooperative Thought process: Normal thought process present Course Course Emergency Course: Patient is aware of diagnosis, understands and agrees to treatment plan. Anticipatory guidance given. Patient agrees to follow-up as directed and is aware of reasons to seek care at the emergency department. Portions of this record may have been created with voice recognition software Level of Care: Express Care Visit MDM MDM Narrative Medical decision making narrative: Will treat with antibiotics based on length of illness. Will also prescribe Zofran to help with nausea and vomiting. Pt well hydrated appearing, in no respiratory distress, hemodynamically stable. Recommend supportive care. The patient is stable at time of discharge the clinical impression was discussed and the patient was given the opportunity to ask questions, which were addressed as completely as possible given the information available at present. Anticipatory guidance and return to care precautions were discussed and the importance of primary care follow-up was stressed and encouraged. The patient voiced understanding of the plan, indications to return, and the need for follow-up. Exam findings show no acute concerns or changes Patient is appropriate for outpatient treatment and follow-up. Differential Diagnosis Differential Diagnosis: Differential diagnosis considered: Serrano virus, strep pharyngitis, allergic rhinitis, upper respiratory tract infection, sinusitis, rhinosinusitis, nasopharyngitis. viral pharyngitis, otitis media, otitis externa, otitis effusion, foreign body, cerumen impaction, viral syndrome, and influenza. Medical Records I have reviewed the following patient records and this information was taken into consideration when formulating the assessment and plan.: previous clinic visits Discharge Plan Discharge Clinical Impression: Upper respiratory infection with cough and congestion, Nausea & vomiting Patient Disposition: Home Condition: Stable Instructions: Antibiotic Form, Upper Respiratory Infection (ED) Additional Instructions: Take antibiotic as prescribed. Use Tessalon Perles as needed for cough. Other symptomatic treatments include: -Alternate Tylenol and Motrin per package directions for fever or pain: Tylenol 650-1000mg by mouth every 4-6 hours. Do not exceed 4000mg in 24 hours. Advil (Ibuprofen) 600 mg by mouth every 6 hours. Do not exceed 2400mg in 24 hours. 8 AM: Tylenol 11 AM: Ibuprofen 2 PM: Tylenol 5 PM: Ibuprofen 8 PM: Tylenol 11 PM: Ibuprofen 2 AM: Tylenol 5 AM: Ibuprofen -Antihistamine medication such as Benadryl at night and Zyrtec/Claritin/Yumi during the day can help improve symptoms. -Use Flonase twice a day for 5 days then daily to help reduce the inflammation and dry up your sinuses. -You can also use Sudafed or Mucinex. Be sure to drink plenty of water with these medications at least 8 ounces with every dose and it is important to drink 8 to 10 glasses of water per day. Water is a natural decongestant -Eat and drink things that are easy to swallow, like tea or soup, or popsicles. -Oral rinses such as: Salt water gargles and/or may use topical anesthetic (eg. Chloraseptic spray) or lozenges to relieve dryness or throat pain). -Frequent hand washing or hand dental director is one of the best ways to prevent spread of infection. -Using a vaporizer or humidifier at night will also help thin secretions and help with coughing up phlegm. Call your Primary Care Doctor and make a follow-up appointment in 3 days. If your cough worsens, you develop a fever greater than 103, you develop shaking chills, a fast heartbeat, trouble breathing and/or feel you are are breathing much faster than usual, call your Primary Care Doctor or go to the ER. Patient Language: Luxembourgish Prescriptions: New benzonatate 100 mg capsule 100 mg PO BID PRN (Reason: cough) Qty: 14 0RF amoxicillin-pot clavulanate 875-125 mg tablet 1 tablet PO Q12H 10 Days Qty: 20 0RF ondansetron 4 mg tablet,disintegrating 4 mg PO Q6-8H PRN (Reason: nausea and vomiting) Qty: 7 0RF No Action Mirena 21 mcg/24hr (up to 8 yrs) 52 mg intrauterine device 1 device intrauterine ONCE Rx Instructions: as a single dose metformin 500 mg tablet extended release 24 hr 500 mg PO DAILY Qty: 90 0RF Zepbound 2.5 mg/0.5 mL pen injector 2.5 mg subcut WEEKLY Qty: 2 0RF Rx Instructions: for 4 weeks omeprazole 20 mg capsule,delayed release(DR/EC) 20 mg PO PRN PRN (Reason: Acid Reflux) montelukast [Singulair] 10 mg tablet 10 mg PO DAILY Qty: 90 0RF fenofibrate nanocrystallized 145 mg tablet 145 mg PO DAILY Qty: 90 0RF ibuprofen 800 mg tablet 800 mg PO TID PRN (Reason: pain) Qty: 90 0RF phentermine 37.5 mg capsule 37.5 mg PO DAILY Qty: 30 0RF Rx Instructions: must administer 30 minutes before or 1-2 hours after breakfast sertraline 100 mg tablet 200 mg PO DAILY Qty: 180 0RF topiramate 50 mg tablet 50 mg PO DAILY Qty: 90 1RF bupropion HCl 300 mg tablet extended release 24 hr 300 mg PO QAM Qty: 90 0RF Follow-up/Referrals: Lorelei Davis PA-C [Primary Care Provider, Family Practice] - 3 Days Stand Alone Forms: Work/School Release IP Time of Disposition: 09:43
[2025-03-12 09:30] VITALS: BP 108/68; PULSE 72; RESP 18; TEMP 35.9; O2SAT 98
--- OUTSIDE RECORDS SUMMARY | 2025-03-12 10:09 | XMS_ITS | Encounter Summary ---
Author Organization [facility] Facility Care Team Providers Care Felt Dyeing Machine Tender Name Role Phone No, Physician Primary Care Provider [phone] Lorelei Davis Primary Care Provider [phone] Encounter Details Date Type Department Care Team (Latest Contact Info) Description 09/12/2016 Orders Only [facility] Provider, MD Deyanira [address] [place] [id number] Social History Tobacco Use Types Packs/Day Years Used Date Smoking Tobacco: Never Assessed Comments Unknown Sex and Gender Information Value Date Recorded Sex Assigned at Not on file 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
--- OUTSIDE RECORDS SUMMARY | 2025-03-12 10:09 | XMS_ITS | Clinical Summary ---
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
--- OUTSIDE RECORDS SUMMARY | 2025-03-12 10:09 | XMS_ITS | Encounter Summary ---
Author Organization [facility] Facility Care Team Providers Care Inpatient Care Manager Rn Name Role Phone No, Physician Primary Care Provider [phone] Lorelei Davis Primary Care Provider Encounter Details Date Type Department Care Team (Latest Contact Info) Description 08/02/2016 Orders Only [facility]INCONV ProviderDeyanira MD [address] [place] [id number] Social History Tobacco Use Types Packs/Day Years Used Date Smoking Tobacco: Never Assessed Comments Unknown Sex and Gender Information Value Date Recorded Sex Assigned at Not on file 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
--- OUTSIDE RECORDS SUMMARY | 2025-03-12 10:10 | XMS_ITS | Clinical Summary ---
Author Organization [facility] Address [address] [place] [address] Care Team Providers Care Copy Center Specialist Name Role Phone Lorelei Davis PA-C Primary Care Provider [phone] Allergies Active Allergy Reactions Criticality Noted Date [...] Diagnosed Date Encounter for induction of labor 02/16/2020 Immunizations Immunization Administration Dates Next Due Flucelvax [...] Comments Blood Pressure 134/90 06/03/2023 2:13 AM ROLLER PRINT TENDER Pulse 85 06/03/2023 2:13 AM ROLLER PRINT TENDER Temperature 36.2 C (97.2 F) 06/03/2023 2:47 AM ROLLER PRINT TENDER Respiratory Rate 18 06/03/2023 2:13 AM ROLLER PRINT TENDER Oxygen Saturation 100% 06/03/2023 2:13 AM ROLLER PRINT TENDER Inhaled Oxygen Concentration - - Weight 104.3 kg (230 lb) 06/03/2023 2:13 AM ROLLER PRINT TENDER Height 165.1 cm (5' 5) 06/03/2023 2:13 AM ROLLER PRINT TENDER Body Mass Index 38.27 06/03/2023 2:13 AM ROLLER PRINT TENDER Plan of Treatment Health Maintenance Due Date [...] Every 5 Years 02/28/2012 Cervical Cancer Screening wi th HPV 02/28/2012 Mammogram Screening 10/25/2024 10/25/2022 COVID-19 Vaccine (1 - 2024-2 6 season) 2024 Influenza Adult (#1) 2025 02/09/2020, 04/18/2019 DTaP, Tdap and Td Vaccines ( 2 - Td or Tdap) 11/29/2029 11/30/2019 Hepatitis A Vaccines Aged Out No long er eligible based on patient's age to complete this topic Meningococcal B Vaccine Aged Out No l onger eligible based on patient's age to complete this topic Meningococcal Vaccine Aged Out No shandra maris eligible based on patient's age to complete this topic Pneumococcal Vaccine: Pediatrics (0 to 5 Years) and At-Risk Patients (6 to 49 Years) Aged Out No longer eligible b [...] CDT IMAGING STUDIES: MG SCREENING W [place] JESSICA DIGI DATE: 10/25/2022 2:16 PM HISTORY: scr 42-year-old [...] Most Recently Relevant to Health Maintenance Insurance [facility] Advance Directives * Full Code (Latest Code [...] 7:42 PM 02/09/2020 12:47 AM Care Teams Copy Center Specialist Relationship Specialty Start Date End Date Lorelei Davis PA-C PCP - General NURSE PRACTITIONER 06/24/19
--- OUTSIDE RECORDS SUMMARY | 2025-03-12 10:11 | XMS_ITS | Clinical Summary ---
Author Organization [facility] [employer] Address [address] [place] [address] Care Team Providers Care Academic Affairs Director Name Role Phone Lorelei Davis Primary Care Provider [phone] Source Comments [facility] [employer]non-owned Affiliates and Associated Physician Practices is amultiple site organization consisting of ambulatory clinics and hospital sitesin [place], [place], [place]. This disclosure is being madepursuant to the Care Everywhere program and may not contain all information available regarding this patient. Last updated 17.[facility] [employer] Allergies Active Allergy Reactions Criticality Noted Date [...] Comments Blood Pressure 118/70 02/10/2020 3:44 PM DIRECTOR POST Pulse 113 02/10/2020 3:44 PM DIRECTOR POST Temperature - - Respiratory Rate 18 01/13/2020 [...] of 3 - 19+ 3-dose series) 2001 PAP SMEAR 2003 HPV VACCINE (1 - 3-dose SCDM series) 2009 Cervical Cancer Screening 02/28/2012 PAP with HPV 02/28/2012 DEPRESSION SCREENING 04/09/2024 COVID-19 VACCINE (1 - 2024-2 6 season) 2024 INFLUENZA VACCINE (#1) 2024 ZOSTER VACCINE (1 [...] patient's age to complete this topic Insurance [facility] Care Teams Academic Affairs Director Relationship Specialty Start Date End Date Lorelei Davis PA [address] [place] [id number] PCP - General Physician Lockstitcher 10/17/19
== END 2025-03-12 09:50 | disposition home or self-care (01) ==
PROVIDERS: Emergency Provider Nurse Practitioner Family; PCP Physician Assistant Medical
DX: J06.9 Acute upper respiratory infection, unspecified (principal); R11.2 Nausea with vomiting, unspecified; E78.1 Pure hyperglyceridemia; M19.90 Unspecified osteoarthritis, unspecified site; E28.2 Polycystic ovarian syndrome; K21.9 Gastro-esophageal reflux disease without esophagitis; F41.9 Anxiety disorder, unspecified; F32.A Depression, unspecified
CPT/HCPCS: 99213; G0463